=== PATIENT | female | born 1955 | race Caucasian/White ===

== ENCOUNTER → 2016-04-29 | Outpatient (CLI) | payer OTHER ==
[~2016-04-29] MED LIST: /LAMO10TA PO; /PRAV20TA PO; ACET50TA PO; ADDE5TAB5 PO; BUPR PO; COUM1TAB17 PO; DHEA50CA4 PO; EFFE150C PO; EFFEXOR XR PO; HYDR25TAB PO; KLON2TAB PO; LAMI1TAB7 PO; LISI5TAB PO; LOVE0.6I2 SC; NICO14PA TD; NORCOTAB PO; SAPH1SUB9 SL; SAPH5SUB3 SL; VITMTA PO; WELLTAB40 PO; XARE15TA PO; [UNRECOGNIZED DRUG - OTHER] SL
[2016-04-29 16:45] LABS: CREATININE FOR GFR 1.3 MG/DL (0.55-1.02); GLOMERULAR FILTRATION RATE 44.5 (>45); POTASSIUM SERUM 4.2 MEQ/L (3.5-5.1)
== END ==
LOC: M WUC 13:58
PROVIDERS: ATTEND Surgery
DX: Z01.812 Encounter for preprocedural laboratory examination (principal)

== ENCOUNTER → 2016-05-10 | Outpatient (CLI) | payer OTHER ==
--- NOTE | 2016-05-10 08:56 | REPMRS ---
Patient History The patient states she has not had a clinical breast exam in over a year. Family history of breast cancer in sister at age 50 and unknown cancer in mother at age 83. Digital Mammo Screening Bilat: May 10, 2016 - Exam #: [id number] Bilateral CC and MLO view(s) were taken. Technologist: Dianne Jenkins, Technologist Prior study comparison: December 14, 2012, bilateral digital mammo screening bilat performed at [facility]. October 05, 2009, bilateral bilat screen digital mammo performed at [facility]. FINDINGS: There are scattered fibroglandular densities. There has been no change in the appearance of the mammogram from the prior studies. There is a mild amount of scattered fibroglandular density which is fairly symmetric. There is no interval development of dominant mass, architectural distortion, or clustered microcalcification suggestive of malignancy. ASSESSMENT: BI-RADS/ACR category 1 mammogram. Negative. Recommendation Routine screening mammogram in 1 year (for women over age 40). This mammogram was interpreted with the aid of an FDA-approved computer-aided dectection system. Electronically Signed By: Chino Michael MD 05/10/16 0855
== END ==
LOC: M RAD 07:39
PROVIDERS: ATTEND Nurse Practitioner Adult Health
DX: Z12.31 Encounter for screening mammogram for malignant neoplasm of breast (principal); Z80.3 Family history of malignant neoplasm of breast

== ENCOUNTER → 2016-06-15 | Outpatient (REF) | payer OTHER ==
[2016-06-15 13:46] LABS: INR 1.09
== END ==
LOC: M LAB REF 12:49
PROVIDERS: ATTEND Internal Medicine Medical Oncology
DX: C21.0 Malignant neoplasm of anus, unspecified (principal)

== ENCOUNTER → 2016-06-27 | Outpatient (CLI) | payer OTHER ==
--- NOTE | 2016-06-27 17:55 | REP ---
Procedure: PICC line insertion with Franck-Harshil The procedure was performed under the direct supervision of Dr. Rodriguez. The risks and benefits of the procedure were explained to the patient and informed consent was obtained. The right basilic vein was localized using ultrasound guidance. The skin was prepped and draped in a sterile fashion. 2% lidocaine was used as a local anesthetic. Using ultrasound guidance the basilic vein was cannulated and a 0.018 guidewire was inserted and advanced to the SVC using fluoroscopic guidance. The needle was removed and a 4.5 Azerbaijani dilator and peel-away sheath was inserted over the guide wire. A 4.5 Azerbaijani single lumen catheter was cut to length of 40 cm. The dilator was removed and the catheter was inserted over the guide wire with the tip ending in the SVC. The peel-away sheath was removed and the catheter was flushed with heparinized saline as per Hospital protocol. The catheter was affixed to the skin and a sterile dressing was applied. The the patient tolerated the procedure well and there were no immediate complications. 0.7 minutes of fluoro time was utilized for this procedure. Reviewed by BIANCA Chavez 06/27/2016 03:51 PSigned by Luke Rodriguez MD 06/27/2016 05:38 P
== END ==
LOC: M RADPRO 12:28
PROVIDERS: ATTEND Internal Medicine Medical Oncology
DX: C21.0 Malignant neoplasm of anus, unspecified (principal); Z87.891 Personal history of nicotine dependence; Z88.1 Allergy status to other antibiotic agents; Z88.0 Allergy status to penicillin; Z91.030 Bee allergy status; Z79.01 Long term (current) use of anticoagulants; Z79.899 Other long term (current) drug therapy; Z85.828 Personal history of other malignant neoplasm of skin

== ENCOUNTER → 2016-06-28 | Outpatient (CLI) | payer OTHER ==
--- NOTE | 2016-06-28 15:28 | RADONC ---
RADIATION ONCOLOGY CONSULTATION NOTE: DATE: 06/28/2016 CHART NO: [id number] DIAGNOSIS: Anal cancer. STAGE: Stage I, T1N0M0 ECOG PERFORMANCE STATUS: 1 Ms. 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 HISTORY OF PRESENT ILLNESS: The patient was in her usual state of health and has had multiple colonoscopies with a history of polyps. On 03/29/2016 an evaluation was undertaken and an anal polyp was excised. Pathology revealed a moderately differentiated invasive squamous cell carcinoma with basaloid features. The tumor was noted to measure 6 mm x 4 mm. The margins of resection were positive and on 05/12/2016 she underwent anal re-excision. Pathology again revealed some residual invasive squamous cell carcinoma with basaloid features. Carcinoma was present in multiple fragments and extended once again to the resection margins. She is now being referred to us for consideration of definitive external beam radiation therapy with IMRT/IGRT. PAST MEDICAL HISTORY: The patient's past medical history is positive for arthritis, hypertension, DVTs as well as bipolar psychiatric illness. She had a partial hysterectomy in the past. The patient had a lumpectomy on the right side as well. A cholecystectomy was undertaken in the past. She reports that she had some type of vein stripping approximately 1-1/2 years ago. ALLERGIES: The patient is allergic to PENICILLIN. SOCIAL HISTORY: The patient has smoked one pack of cigarettes per day for 25 years. She does not abuse alcohol. FAMILY HISTORY: The patient's family history is positive for a mother with lung cancer and a sister with breast cancer. REVIEW OF SYSTEMS: The patient's review of systems is positive for anxiety and depression, as well as some decreased energy and weakness in arms and legs. She reports that she has occasional difficulty swallowing and some rectal bleeding. She complains of some acid reflux and says she has gained 25 pounds with her depression. She denies nausea, vomiting, fevers, chills, night sweats, diplopia, headaches, chest pain, bowel difficulties, shortness of breath. PHYSICAL EXAMINATION: The patient is a well-developed, well-nourished female in no acute distress. HEENT exam is normocephalic, atraumatic. Extraocular movements are intact. There is no palpable cervical, supraclavicular, infraclavicular, axillary, or inguinal lymphadenopathy present. Lungs are clear to auscultation and percussion. Heart has a regular rate and rhythm. Abdomen is benign with no hepatosplenomegaly, masses, or tenderness. Skeletal examination reveals no tenderness to pressure or percussion of the bony skeleton. Extremities reveal no clubbing, cyanosis, or edema. Rectal examination reveals a normal anal sphincter tone. There is a rough small edge present in the anal canal which does not extend more than 2 cm in length. Neurologic exam is grossly intact, as is the remainder of the physical examination. MEDICAL NECESSITY: IMRT/IGRT is clinically indicated for the highly conformal dose planning required. The target volume is in close proximity to critical structures such as the rectum, bladder, small bowel and femoral heads. The volume of interest must be covered with narrow margins to adequately protect immediately adjacent structures. The plan requires interpretation of complex testing such as CT localization. As noted above, special planning (IMRT) and localizing (IGRT) is required and essential to maximally protect sensitive normal tissue structures which cannot be accomplished using conventional three-dimensional planning. IMAGING STUDIES: Imaging studies have not yet been undertaken. ASSESSMENT: Clearly the patient is a candidate for external beam radiation therapy and I have so informed her. I have discussed with the patient in detail the potential benefits as well as possible acute and chronic sequelae of external beam radiation therapy. We have discussed the logistics of treatment planning, simulation and subsequent fractionated daily radiation. I believe IMRT/IGRT will be best utilized as is recommended in the [employer] guidelines. This will allow us to minimize dose to the normal structures such as the bladder, the femoral heads, small bowel and the large bowel. I have scheduled the patient for CT scanning for further staging workup. In addition, we will coordinate her care with her medical oncologist, Dr. Becerra as well. Thank you for allowing us to participate in the care of this delightful woman. If I could be of any further assistance or provide you with any information, please free to contact me anytime. As always warm regards, cc: Stacia Becerra MD *Noe Farah MD *Kellie Mendoza, ANP
--- NOTE | 2016-06-30 11:25 | RADONC ---
RADIATION ONCOLOGY SIMULATION NOTE DATE: 06/30/2016 CHART NUMBER: [id number] Ms. Dalton was taken to the CT scan for CT simulation of her anal field. CT was accomplished without difficulty or discomfort. Radiation treatment planning is underway and radiation treatments will begin subsequently. An immobilization device was created without difficulty or discomfort. It will be used throughout the course of treatment. I was physically present throughout the course of CT simulation.
== END ==
LOC: M ONCR 09:07
PROVIDERS: ATTEND Radiology Radiation Oncology
DX: C21.0 Malignant neoplasm of anus, unspecified (principal)

== ENCOUNTER 2016-06-30 11:39 | Outpatient (RCR) | payer OTHER ==
--- NOTE | 2016-07-11 12:54 | RADONC ---
RADIATION ONCOLOGY PROGRESS NOTE DATE: 07/11/2016 CHART NUMBER: Ms. Dalton underwent port filming today for her anal cancer treatments. Port films were accomplished without difficulty or discomfort. We initially planned on starting the patient's treatment today, but received a message from medical oncology that they do not have her chemotherapy drugs available and cannot start treatments until next Monday. Since concomitant radiation and chemotherapy is called for, we therefore are unable to start this patient until Monday when the treatment drugs become available. Once again in summary, the patient was scheduled to start radiation today and indeed is ready to start, however chemotherapy drugs are not available and therefore radiation initiation will be done next Monday.
--- NOTE | 2016-07-19 07:37 | RADONC ---
RADIATION ONCOLOGY PROGRESS NOTE DATE: 07/18/2016 CHART NUMBER: [id number] Ms. Dalton underwent her fraction of 180 cGy today to her anus. Her anal treatment was tolerated without difficulty or discomfort. The patient had no complaints related to her first fraction of radiation. The patient's physical exam showed no radiation change present clearly. Ms. Dalton tolerated her first fraction without difficulty and radiation will continue as scheduled.
--- NOTE | 2016-07-26 10:13 | RADONC ---
RADIATION ONCOLOGY PROGRESS NOTE DATE: 07/26/2016 CHART NUMBER: [id number] Ms. Dalton is presently at a dose of 1080 cGy to her anus and is tolerating treatments quite well at this point with no significant difficulties related to her radiation therapy other than some mucositis. She does have some tenderness around the perianal area. The patient's review of systems is positive for some oral cavity mucositis as well as some perianal discomfort but is otherwise noncontributory. She denies nausea, vomiting, fevers, chills, night sweats, diplopia, headaches, anxiety or depression, anorexia, weight loss, visual disturbances, chest pain, urinary or bowel difficulties, bone pain, or neurological problems. PHYSICAL EXAMINATION: The patient's skin is in good condition with no evidence of moist or dry desquamation. The remainder of her physical exam remains unchanged. Ms. Dalton is tolerating treatments quite well, and radiation will continue as scheduled.
== END 2016-07-27 ==
LOC: M ONCR 11:39
PROVIDERS: ATTEND Radiology Radiation Oncology
DX: C21.1 Malignant neoplasm of anal canal (principal)

== ENCOUNTER → 2016-06-30 | Outpatient (CLI) | payer OTHER | LOC: M RAD 10:48 | PROVIDERS: ATTEND Radiology Radiation Oncology | DX: C21.0 Malignant neoplasm of anus, unspecified (principal); Z91.030 Bee allergy status; Z88.1 Allergy status to other antibiotic agents; Z88.0 Allergy status to penicillin; Z88.8 Allergy status to other drugs, medicaments and biological substances ==

== ENCOUNTER → 2016-07-04 | Outpatient (CLI) | payer OTHER ==
[~2016-07-04] MED LIST changes: +GASTROGRAFIN SOLUTION 30ML (Q9963) As Ordered ONE; +ISOVUE-370 76% 100ML VIAL (Q9967) As Ordered ONE
--- NOTE | 2016-07-05 06:28 | REP ---
Clinical: Anal carcinoma for staging. Technique: Axial contrast enhanced images from the thoracic inlet to the upper abdomen using 100 ml Isovue 370 intravenous contrast material with coronal and sagittal re-formations. Comparison: 04/14/2015. Findings: Lung stratton demonstrate chronic age-related scattered interstitial changes along with subtle right upper lobe opacities which may reflect scarring and/or atelectasis. Small focus of density in the deep posterior right base may reflect atelectatic changes and appear slightly more pronounced compared to 03/07/2016. No further consolidation, nodule or mass lesion is appreciated. No axillary, hilar, or mediastinal adenopathy noted. Thoracic aorta, heart and pericardium appear relatively normal. No evidence for cardiomegaly, pericardial effusion, or thoracic aortic aneurysm/dissection. Surrounding musculoskeletal structures are intact. Impression: 1. Chronic-appearing changes as described above primarily involving the right upper lung zone. 2. Presumed atelectasis in the bilateral lung bases warrant correlation with physical examination and follow-up given the patient's history of malignancy. 3. No further acute mediastinal or pleuroparenchymal process otherwise noted. Specifically, no adenopathy, nodule or mass lesion identified. Signed by Benjamin Marcum MD 07/05/2016 06:20 A
--- NOTE | 2016-07-05 06:34 | REP ---
Clinical: Anal carcinoma. Technique: Axial contrast enhanced images from the lung bases to the pubic symphysis using oral and 100 ml Isovue 370 intravenous contrast material along with precontrast and delayed images of the abdomen as well as coronal and sagittal re-formations. Comparison: 03/07/2016. Findings: Subtle ill-defined density at the right lung base likely represents atelectasis but requires correlation and follow up. Visualized portions of the heart and pericardium are normal. Liver demonstrates 1 cm hyperdense focus in the posterior periphery of the right lobe which is essentially unchanged compared to 2008 and likely represent small hemangioma. Spleen, pancreas, bilateral adrenal glands and kidneys are normal. The patient is status post cholecystectomy. The enteric system is without obstruction or acute inflammatory process. Pelvis demonstrates normal bladder and evidence for prior hysterectomy. No obvious perirectal mass lesion is appreciated. No ascites. No intraperitoneal or retroperitoneal adenopathy. Vasculature is normal. Musculoskeletal structures demonstrate age-related changes without focal osseous abnormality; incidental note is made of a presumed hemangioma in the T8 vertebral body. Impression: 1. Stable 1 cm hemangioma in the posterior segment right lobe of the liver. 2. Small presumed benign hemangioma in the T8 vertebral body. 3. Small focus of presumed atelectasis in the right lung base warrants reevaluation with chest CT in 3 months. 4. No further significant acute abdominal or pelvic pathology appreciated. Signed by Benjamin Marcum MD 07/05/2016 06:26 A
== END ==
LOC: M RAD 14:58
PROVIDERS: ATTEND Radiology Radiation Oncology
DX: C21.0 Malignant neoplasm of anus, unspecified (principal); D18.09 Hemangioma of other sites; R91.8 Other nonspecific abnormal finding of lung field

== ENCOUNTER 2016-07-28 11:38 | Outpatient (RCR) | payer OTHER ==
[~2016-07-28 11:38] MED LIST changes: +ADDE1TAB14 PO; -ADDE5TAB5 PO; -GASTROGRAFIN SOLUTION 30ML (Q9963) As Ordered ONE; -ISOVUE-370 76% 100ML VIAL (Q9967) As Ordered ONE
--- NOTE | 2016-08-03 07:29 | RADONC ---
RADIATION ONCOLOGY PROGRESS NOTE DATE: 08/02/2016 CHART NUMBER: [id number] Ms. Dalton is presently at a dose of 1980 cGy to her anus and is tolerating treatments quite well at this point with no significant difficulties related to her radiation therapy other than some occasional loose bowel movements. The patient's review of systems is positive for some loose bowel movements but is otherwise noncontributory. Denies nausea, vomiting, fevers, chills, night sweats, diplopia, headaches, anxiety or depression, anorexia, weight loss, visual disturbances, chest pain, urinary or bowel difficulties, bone pain, or neurological problems. PHYSICAL EXAMINATION: The patient's skin is in good condition with no evidence of moist or dry desquamation. The remainder of physical exam remains unchanged. Ms. Dalton is tolerating treatments quite well and radiation will continue as scheduled.
--- NOTE | 2016-08-08 11:35 | RADONC ---
RADIATION ONCOLOGY PROGRESS NOTE: DATE: 08/08/2016 CHART NUMBER: [id number]. PROGRESS NOTE: Ms. Dalton is presently at a dose of 2700 cGy to her anus and is tolerating her radiation treatments quite well. She is complaining of severe fatigue. She also has muscle pain throughout her body. She has no other complaints at this time related to her treatment or disease other than some tenderness in the perineal area. REVIEW OF SYSTEMS: The patient's review of systems is positive for perianal discomfort as well as fatigue and general muscle pain, but is otherwise noncontributory. The patient's review of systems is noncontributory. Denies nausea, vomiting, fevers, chills, night sweats, diplopia, headaches, anxiety or depression, anorexia, weight loss, visual disturbances, chest pain, urinary or bowel difficulties, bone pain, or neurological problems. PHYSICAL EXAMINATION: The patient's skin shows some erythema present but overall is in good condition with no evidence of moist or dry desquamation. The remainder of her physical exam remains unchanged. Ms. Dalton is tolerating treatments quite well and radiation will continue as scheduled. She is scheduled to see her medical oncologist to discuss her present complaints.
[2016-08-15] MEDS ORDERED: SILV-4 TOP (11:09)
--- NOTE | 2016-08-15 14:15 | RADONC ---
RADIATION ONCOLOGY PROGRESS NOTE DATE: 08/15/2016 CHART NUMBER: [id number] Ms. Dalton is presently at a dose of 3600 cGy to her anus and is tolerating treatments quite well at this point with no significant difficulties related to her radiation therapy other than some perianal discomfort and loose bowel movements. REVIEW OF SYSTEMS: The patient's review of systems is positive for loose bowel movements and perianal discomfort, but is otherwise noncontributory. She denies nausea, vomiting, fevers, chills, night sweats, diplopia, headaches, anxiety or depression, anorexia, weight loss, visual disturbances, chest pain, urinary or bowel difficulties, bone pain, or neurological problems. PHYSICAL EXAMINATION: The patient's skin is remarkable for brisk erythema and tanning. There is also some desquamation in the perineal area. The remainder of her physical exam remains unchanged. Ms. Dalton has been given a prescription for Silvadene cream to be of applied topically over the areas being radiated. In the meantime, we will follow her closely and radiation will continue as scheduled.
[2016-08-22] MEDS ORDERED: PERC5TAB12 PO (09:27)
--- NOTE | 2016-08-22 12:16 | RADONC ---
RADIATION ONCOLOGY PROGRESS NOTE DATE: 08/22/2016 CHART NUMBER: [id number] Ms. Dalton is presently at a dose of 4320 cGy to her anus. The patient presents today reporting that she is having pain and discomfort. She reports that she is having bowel movements every hour. She reports some bleeding from the perianal area. The patient's review of systems again is positive for perianal pain and discomfort as well as some bleeding. She also has pain in the groins and says her raw skin hurts. PHYSICAL EXAMINATION: There is moist desquamation in the perianal region as well as the skin folds in the inguinal area. There is also some erythema and tanning present. The remainder of her physical examination remains unchanged. I have sent in a prescription for pain medication for this patient. In addition she is using Silvadene and has been given skin care instructions including sitz baths as well as how to keep the area clean. The patient reports that she might have a yeast infection and she has been given instructions on how to care for that as well. We are approaching completion of treatment at this point. Indeed she only has four fractions left. I have given this patient an option. She has taken a break today from treatment. I have asked her to consider returning tomorrow and completing her four fractions today if she feels better following initiation of some pain medication as well as some Imodium and skin care. We are coming up to a 4-day weekend and because of that the other alternative would be two fractions this week make that on and Monday followed by a two fractions next week on Monday and . This would give her a 5 day break at the present time and another 4 day break over the weekend. I made clear to her that she may lose some efficacy of the treatment if she chooses that option. Clearly I cannot force the patient to come in for treatment today. Once again we will continue to follow this woman and she only has a small amount of radiation left. She may be completing therapy this week, but if not we will complete her next week. She is aware of the ramifications of any decision.
== END 2016-08-26 ==
LOC: M ONCR 11:38
PROVIDERS: ATTEND Radiology Radiation Oncology
DX: C21.1 Malignant neoplasm of anal canal (principal)

== ENCOUNTER 2016-08-31 10:07 | Outpatient (RCR) | payer OTHER ==
[~2016-08-31 10:07] MED LIST changes: +PERC5TAB12 PO; +SILV-4 TOP
--- NOTE | 2016-09-02 09:39 | RADONC ---
RADIATION ONCOLOGY PROGRESS NOTE DATE: 08/31/2016 CHART NUMBER: [id number]. Ms. Dalton is presently at a dose of 4860 centigrade to her anus and is tolerating treatments fairly well at this point with no significant difficulties related to her radiation therapy other than skin tenderness. The patient's review of systems is positive for skin tenderness and some loose bowel movements, but is otherwise noncontributory. Denies nausea, vomiting, fevers, chills, night sweats, diplopia, headaches, anxiety or depression, anorexia, weight loss, visual disturbances, chest pain, urinary or bowel difficulties, bone pain, or neurological problems. PHYSICAL EXAMINATION: The patient's skin shows erythema and some desquamation present, but overall is doing fairly well. The remainder of her physical exam remains unchanged. Ms. Dalton is tolerating her treatments and radiation is scheduled for completion tomorrow.
--- NOTE | 2016-09-02 09:42 | RADONC ---
RADIATION ONCOLOGY TREATMENT SUMMARY: DATE: 09/01/2016 CHART NUMBER: [id number] DIAGNOSIS: Anal cancer. STAGE: I, T1N0M0. ECOG PERFORMANCE STATUS: 1 Ms. 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 We treated the patient to her anus for a total dose of 5040 cGy delivered in 28 fractions of 180 cGy each over 45 elapsed days from 07/18/2016 through 09/01/2016. The patient's anus was treated on a linear accelerator utilizing a 6 MV photon beam via IMRT/IGRT. The patient's lymph nodes were treated to a dose of 4200 cGy delivered in 28 fractions of 150 cGy each also utilizing a 6 MV photon beam. Ms. Dalton tolerated her treatments quite well with no significant difficulties related to her radiation therapy. She was able to complete without interruption. I have scheduled the patient to see me again in 1 month for followup visit. She will also continue to be followed closely by her other physicians as well. cc: Stacia Becerra MD, FACP MD Kellie Soto, ALYCE
== END 2016-09-26 ==
LOC: M ONCR 10:07
PROVIDERS: ATTEND Radiology Radiation Oncology
DX: C21.1 Malignant neoplasm of anal canal (principal)

== ENCOUNTER → 2016-10-07 | Outpatient (CLI) | payer OTHER ==
--- NOTE | 2016-10-07 10:10 | RADONC ---
RADIATION ONCOLOGY FOLLOWUP NOTE: DATE: 10/07/2016 CHART NUMBER: [id number]. DIAGNOSIS: Anal cancer. STAGE: I, T1N0M0. ECOG PERFORMANCE STATUS: Zero. FOLLOWUP NOTE: Ms. Dalton is a very pleasant, 61-year-old white female with the diagnosis of a stage I, T1N0M0 moderately differentiated invasive squamous cell carcinoma with basaloid features of her anal canal who is presenting to us today for routine followup visit 1 month post completion of external beam radiation therapy. The patient presents today reporting that she is doing quite well. She has some discomfort with her bowel movements. She also has some itching in the perineal area. She has no other complaints related to her radiation therapy or disease. REVIEW OF SYSTEMS: The patient's review of systems is positive for some slight discomfort with her bowel movements and some perianal aging but is otherwise noncontributory. Denies nausea, vomiting, fevers, chills, night sweats, diplopia, headaches, anxiety or depression, anorexia, weight loss, visual disturbances, chest pain, urinary or bowel difficulties, bone pain, or neurological problems. PHYSICAL EXAMINATION: The patient is a well-developed, well-nourished, 61-year-old white female, in no acute distress. HEENT exam is normocephalic, atraumatic. Extraocular movements are intact. There is no palpable cervical, supraclavicular, infraclavicular, axillary, or inguinal lymphadenopathy present. Lungs are clear to auscultation and percussion. Heart has a regular rate and rhythm. Abdomen is benign with no hepatosplenomegaly, masses, or tenderness. Rectal examination reveals the skin in the perianal area to be within good condition with no evidence of radiation change present. There is no moist or dry desquamation. Examination of the patient's anal canal shows no evidence of nodularity ulceration or residual disease. Skeletal examination reveals no tenderness to pressure or percussion of the bony skeleton. Extremities reveal no clubbing, cyanosis, or edema. Neurologic exam is grossly intact, as is the remainder of the physical examination. ASSESSMENT: The patient is clinically doing quite well at this time and will be seen by us again in 3 months for further followup. She will also continue to be followed by her other physicians as well. cc: Stacia Becerra MD, FACP MD Kellie Soto, ALYCE
== END ==
LOC: M ONCR 09:29
PROVIDERS: ATTEND Radiology Radiation Oncology
DX: C21.1 Malignant neoplasm of anal canal (principal)

== ENCOUNTER → 2017-03-23 | Outpatient (CLI) | payer OTHER ==
[2017-03-23 20:51] LABS: BASO % 0.4 % (0.0-1.0); EOS # 0.1 10^3/uL (0.0-0.50); EOS % 1.5 % (0.0-3.0); HEMATOCRIT 38.3 % (36.0-47.0); HEMOGLOBIN 12.4 g/dl (12.0-16.0); IMMATURE GRANULOCYTE % 0.6 % (0-0); LYMPH # 1.3 10^3/uL (1.5-4.5); LYMPH % 27.5 % (24.0-44.0); MEAN CORPUSCULAR HEMOGLOBIN 28.7 pg (27.0-33.0); MEAN CORPUSCULAR HGB CONC 32.4 g/dl (32.0-36.5); MEAN CORPUSCULAR VOLUME 88.7 fl (80.0-96.0); MONO # 0.5 10^3/uL (0.0-0.8); MONO % 11.5 % (0.0-5.0); NEUTROPHILS # 2.7 10^3/uL (1.8-7.7); NEUTROPHILS % 58.5 % (36.0-66.0); PLATELET COUNT, AUTOMATED 290 10^3/uL (150-450); RED BLOOD COUNT 4.32 10^6/uL (4.00-5.40); RED CELL DISTRIBUTION WIDTH 14.8 % (11.5-14.5); WHITE BLOOD COUNT 4.7 10^3/uL (4.0-10.0)
[2017-03-23 21:16] LABS: IRON (FE) 81 UG/DL (50-170)
[2017-03-23 21:16] LABS: FREE T3 2.5 PG/ML (2.2-4.0); THYROXINE (T4) 8.5 UG/DL (4.5-12.0)
== END ==
LOC: M WUC 16:25
DX: R53.83 Other fatigue (principal)
CPT/HCPCS: 83540

== ENCOUNTER 2017-09-08 15:35 | Emergency (ER) | payer OTHER ==
[2017-09-08] MEDS: NS 500 ML IV (17:00)
[2017-09-08 17:02] LABS: BASO % 0.6 % (0.0-1.0); EOS # 0.1 10^3/uL (0.0-0.50); HEMATOCRIT 37.9 % (36.0-47.0); HEMOGLOBIN 12.6 g/dl (12.0-15.5); LYMPH # 1.4 10^3/uL (1.5-4.5); LYMPH % 22.1 % (24.0-44.0); MEAN CORPUSCULAR HEMOGLOBIN 29.2 pg (27.0-33.0); MEAN CORPUSCULAR HGB CONC 33.2 g/dl (32.0-36.5); MEAN CORPUSCULAR VOLUME 87.7 fl (80.0-96.0); MONO # 0.7 10^3/uL (0.0-0.8); MONO % 10.4 % (0.0-5.0); NEUTROPHILS # 4.1 10^3/uL (1.8-7.7); NEUTROPHILS % 64.9 % (36.0-66.0); PLATELET COUNT, AUTOMATED 275 10^3/uL (150-450); RED BLOOD COUNT 4.32 10^6/uL (4.00-5.40); RED CELL DISTRIBUTION WIDTH 14.6 % (11.5-14.5); WHITE BLOOD COUNT 6.3 10^3/uL (4.0-10.0)
[2017-09-08 17:26] LABS: INR 1.66; PROTHROMBIN TIME 19.9 SECONDS (12.1-14.4)
[2017-09-08 17:27] LABS: PARTIAL THROMBOPLASTIN TIME 34.3 SECONDS (25.4-37.6)
[2017-09-08 17:28] LABS: ALBUMIN 3.7 GM/DL (3.2-5.2); ALBUMIN/GLOBULIN RATIO 0.88 (1.00-1.93); ALKALINE PHOSPHATASE 135 U/L (45-117); ALT/SGPT 20 U/L (12-78); ANION GAP 10 MEQ/L (8-16); AST/SGOT 13 U/L (7-37); BILIRUBIN,DIRECT < 0.1 MG/DL (0.0-0.2); BILIRUBIN,TOTAL 0.3 MG/DL (0.2-1.0); BLOOD UREA NITROGEN 14 MG/DL (7-18); CALCIUM LEVEL 9.2 MG/DL (8.8-10.2); CARBON DIOXIDE LEVEL 25 MEQ/L (21-32); CHLORIDE LEVEL 105 MEQ/L (98-107); CPK CREATINE PHOSPHOKINASE 48 U/L (26-192); CREATININE FOR GFR 1.35 MG/DL (0.55-1.30); GLOMERULAR FILTRATION RATE 42.4 (>45); GLUCOSE, FASTING 80 MG/DL (70-100); LIPASE 156 U/L (73-393); POTASSIUM SERUM 3.7 MEQ/L (3.5-5.1); SODIUM LEVEL 140 MEQ/L (136-145); TOTAL PROTEIN 7.9 GM/DL (6.4-8.2); TROPONIN I < 0.02 NG/ML (< 0.10)
[2017-09-08 17:34] LABS: CK-MB VALUE MASS < 1.0 NG/ML (<3.6); MB/CK RELATIVE INDEX 2.08 (< OR =4); NT-PRO BNP 40 PG/ML (<125)
[2017-09-08] MEDS ORDERED: ISOVUE-370 76% 100ML VIAL (Q9967) As Ordered (17:35)
== END 2017-09-08 18:31 | disposition home or self-care (01) ==
LOC: M ED 15:35
DX: R07.89 Other chest pain (principal); R06.02 Shortness of breath; I10 Essential (primary) hypertension; E78.5 Hyperlipidemia, unspecified; F31.9 Bipolar disorder, unspecified; Z86.711 Personal history of pulmonary embolism; Z87.442 Personal history of urinary calculi; Z79.01 Long term (current) use of anticoagulants; Z88.0 Allergy status to penicillin; Z88.1 Allergy status to other antibiotic agents; Z88.6 Allergy status to analgesic agent; Z91.030 Bee allergy status
CPT/HCPCS: Q9967

== ENCOUNTER 2018-01-21 10:32 | Emergency (ER) | payer MEDICARE, MEDICAID ==
[~2018-01-21] VITALS: Ht 177.8 cm; Wt 129.6 kg
[~2018-01-21 10:32] MED LIST changes: +AMPHET/DEXTR; -EFFE150C PO; +EFFE150C2 PO; +OMEP20CA3; +RISP2TAB3; +XARE20TA
[2018-01-21] MEDS ORDERED: OXYCOD/APAP PO (10:50)
[2018-01-21] MEDS ORDERED: QUET1TAB8 PO (10:51)
[2018-01-21] MEDS ORDERED: SENN8.6T98 PO (10:51)
[2018-01-21 11:41] LABS: BASO % 0.4 % (0.0-1.0); EOS # 0.1 10^3/uL (0.0-0.50); EOS % 1.4 % (0.0-3.0); HEMATOCRIT 29.5 % (36.0-47.0); HEMOGLOBIN 9.9 g/dl (12.0-15.5); LYMPH # 1.3 10^3/uL (1.5-4.5); LYMPH % 18.1 % (24.0-44.0); MEAN CORPUSCULAR HEMOGLOBIN 29.2 pg (27.0-33.0); MEAN CORPUSCULAR HGB CONC 33.6 g/dl (32.0-36.5); MONO # 0.7 10^3/uL (0.0-0.8); MONO % 10.2 % (0.0-5.0); NEUTROPHILS # 4.9 10^3/uL (1.8-7.7); NEUTROPHILS % 69.3 % (36.0-66.0); PLATELET COUNT, AUTOMATED 290 10^3/uL (150-450); RED BLOOD COUNT 3.39 10^6/uL (4.00-5.40); WHITE BLOOD COUNT 7.1 10^3/uL (4.0-10.0)
[2018-01-21] MEDS ORDERED: NS 1,000 ML IV ONE (11:45)
--- NOTE | 2018-01-21 12:02 | REP ---
Clinical: Shortness of breath . Comparison: 03/26/2015 . Findings: The mediastinum and cardiac silhouette are stable and within normal limits for portable technique. The lung stratton are clear without acute consolidation, effusion, or pneumothorax. Skeletal structures are intact. Impression: No acute cardiopulmonary process appreciated. Electronically Signed by Benjamin Marcum MD 01/21/2018 11:54 A
[2018-01-21 12:07] LABS: CALCIUM LEVEL 8.4 MG/DL (8.8-10.2); CREATININE FOR GFR 1.24 MG/DL (0.55-1.30); GLOMERULAR FILTRATION RATE 46.8 (>45); POTASSIUM SERUM 3.4 MEQ/L (3.5-5.1)
[2018-01-21] MEDS ORDERED: risperiDONE 3 MG TAB PO ONE (12:15)
--- NOTE | 2018-01-21 12:19 | REP ---
Clinical: Left lower extremity pain with recent knee replacement and acute shortness of breath. Technique: Rodriguez scale and color Doppler evaluation using linear high frequency transducer. Comparison: 03/26/2015 Findings: Ultrasound examination of the left lower extremity deep venous structures from the common femoral vein to the popliteal vein demonstrates normal compressibility flow and wave patterns in response to respiration and augmentation. There is no evidence for deep venous thrombosis. Impression: No evidence for deep venous thrombosis. Electronically Signed by Benjamin Marcum MD 01/21/2018 12:10 P
[2018-01-21] MEDS ORDERED: ISOVUE-370 76% 100ML VIAL (Q9967) As Ordered ONE (12:25)
--- NOTE | 2018-01-21 12:53 | REP ---
Clinical: Postoperative chest pain and shortness of breath. Technique: Axial contrast enhanced images from the thoracic inlet to the upper abdomen using 100 ml Isovue 370 intravenous contrast material with coronal and sagittal re-formations. Findings: Satisfactory enhancement of the pulmonary vasculature is achieved and no filling defects are identified to suggest pulmonary embolus. Thoracic aorta is normal caliber without aneurysm or dissection. Heart and pericardium are normal. Bilateral lung stratton are well aerated and clear without acute pulmonary parenchymal consolidation or atelectasis. Minimal posterior right basilar dependent changes. No nodule or mass lesion. No pleural effusion/reaction. No pneumothorax. No adenopathy. Impression: No evidence for pulmonary embolus. No acute pleuroparenchymal or mediastinal process. Minimal posterior basilar dependent changes. Electronically Signed by Benjamin Marcum MD 01/21/2018 12:45 P
[2018-01-21] MEDS ORDERED: ONDANSETRON 4MG/2ML VIAL (J2405) IV ONE (13:15)
[2018-01-21] MEDS ORDERED: MORPHINE 2 MG/ML 1ML SYRINGE (J2270) IV PRN (13:15)
[2018-01-21 13:27] LABS: C REACTIVE PROTEIN QUANTITATIV 16.3 MG/DL (0.00-0.30)
[2018-01-21 14:28] VITALS: BP 120/74
--- NOTE | 2018-01-21 20:54 | ECGEPIP ---
Stationary ECG Study [facility] - ED Test Date: 2018-01-21 Pat Name: LOUIE SANDOVAL Department: Room: - Gender: F Director Orange: TC : 1955 Requested By: Juanito Zepeda Order Number: [id number] Reading MD: Dora Amaral Measurements Intervals [place] Rate: 90 P: 83 [place]: 139 QRS: 66 QRSD: 94 T: 20 QT: 366 QTc: 449 Interpretive Statements SINUS RHYTHM MODERATE ST DEPRESSION SIMILAR 09/08/17 Electronically Signed On 01-21-2018 20:54:38 EST by Dora Amaral
== END 2018-01-21 14:35 | disposition short-term general hospital (02) ==
LOC: M ED 10:32 → EDBD 10:32 → M ED 14:35
DX: T81.42XA Infection following a procedure, deep incisional surgical site, initial encounter (principal)
CPT/HCPCS: 71045; 71275; 80048; 83605; 85025; 86140; 87040; 93005; 93041; 93971; 94760; 96374; 96375; 96376; 99285; J2270; J2405; Q9967

== ENCOUNTER 2018-02-22 07:28 | Outpatient (RCR) | payer MEDICARE, MEDICAID ==
[~2018-02-22 07:28] MED LIST changes: +OXYCOD/APAP PO; +QUET1TAB8 PO; +SENN8.6T98 PO
== END 2018-02-26 ==
LOC: M PT 07:28
PROVIDERS: ATTEND Physician Assistant Surgical
DX: Z47.89 Encounter for other orthopedic aftercare (principal); M17.12 Unilateral primary osteoarthritis, left knee
CPT/HCPCS: 97110; 97161; G8978; G8979

== ENCOUNTER 2018-03-28 07:30 | Outpatient (RCR) | payer MEDICARE, MEDICAID | END 2018-03-29 | LOC: M PT 07:30 | PROVIDERS: ATTEND Physician Assistant Surgical | DX: Z47.1 Aftercare following joint replacement surgery (principal); Z96.652 Presence of left artificial knee joint ==

== ENCOUNTER 2018-04-20 10:09 | Emergency (ER) | payer MEDICAID, MEDICARE ==
[~2018-04-20] VITALS: Ht 177.8 cm; Wt 90.9 kg
[2018-04-20] MEDS ORDERED: NS 1,000 ML IV ONE (11:45)
[2018-04-20 12:10] LABS: BASO % 0.5 % (0.0-1.0); EOS # 0.1 10^3/uL (0.0-0.50); EOS % 1.1 % (0.0-3.0); HEMATOCRIT 43.3 % (36.0-47.0); HEMOGLOBIN 13.6 g/dl (12.0-15.5); LYMPH # 1.6 10^3/uL (1.5-4.5); LYMPH % 25.3 % (24.0-44.0); MEAN CORPUSCULAR HEMOGLOBIN 28.2 pg (27.0-33.0); MEAN CORPUSCULAR HGB CONC 31.4 g/dl (32.0-36.5); MEAN CORPUSCULAR VOLUME 89.8 fl (80.0-96.0); MONO # 0.8 10^3/uL (0.0-0.8); MONO % 11.8 % (0.0-5.0); NEUTROPHILS # 3.9 10^3/uL (1.8-7.7); NEUTROPHILS % 60.5 % (36.0-66.0); PLATELET COUNT, AUTOMATED 293 10^3/uL (150-450); RED BLOOD COUNT 4.82 10^6/uL (4.00-5.40); WHITE BLOOD COUNT 6.4 10^3/uL (4.0-10.0)
[2018-04-20] MEDS: GASTROGRAFIN SOLUTION 30ML PO SCH ×2 (12:12→12:45)
[2018-04-20 12:32] LABS: ALBUMIN 3.9 GM/DL (3.2-5.2); ALT/SGPT 21 U/L (12-78); AMYLASE 37 U/L (25-115); BILIRUBIN,DIRECT < 0.1 MG/DL (0.0-0.2); BILIRUBIN,TOTAL 0.3 MG/DL (0.2-1.0); BLOOD UREA NITROGEN 7 MG/DL (7-18); CALCIUM LEVEL 9.3 MG/DL (8.8-10.2); CARBON DIOXIDE LEVEL 26 MEQ/L (21-32); CHLORIDE LEVEL 105 MEQ/L (98-107); CREATININE FOR GFR 1.38 MG/DL (0.55-1.30); GLOMERULAR FILTRATION RATE 41.2 (>45); GLUCOSE, FASTING 95 MG/DL (70-100); LIPASE 128 U/L (73-393); POTASSIUM SERUM 4.3 MEQ/L (3.5-5.1); SODIUM LEVEL 140 MEQ/L (136-145); TOTAL PROTEIN 7.8 GM/DL (6.4-8.2)
[2018-04-20] MEDS ORDERED: ISOVUE-370 76% 100ML VIAL (Q9967) As Ordered ONE (13:28)
--- NOTE | 2018-04-20 14:10 | REP ---
CT of the abdomen and pelvis with IV and oral contrast: Comparison is 07/04/2016. The visualized lung stratton are unremarkable except for minor atelectasis. There is an enhancing lesion inferiorly in the right lobe of the liver as previously. There appears to be a slightly more enhancement at the periphery of this lesion today than previously. Therefore, I would recommend MRI follow-up. The remainder of the hepatic parenchyma is unremarkable. There are surgical clips in the gallbladder fossa. The pancreas and spleen are normal size unremarkable. The adrenals are unremarkable. The kidneys are unremarkable. Abdominal aorta is unremarkable. There is no periaortic adenopathy or mass. There is no bowel distension or obstruction. There is a moderate volume of fecal residue throughout the colon. Pelvis: There is a hysterectomy. Vaginal cuff and adnexa are unremarkable. There is no diverticulosis or diverticulitis. The bladder is unremarkable. There is no adenopathy or ascites. Impression: There is no bowel distension or obstruction. There is a moderate volume of fecal residue throughout the colon. There is no diverticulosis or diverticulitis. There is enhancing lesion in the right lobe of the liver inferiorly with slightly more enhancement today than previously, therefore, I would recommend hepatic MRI follow-up. Electronically Signed by Luke Davis MD 04/20/2018 02:01 P
[2018-04-20] MEDS ORDERED: GOLYTELY SOLN 4000 ML BTL PO ONE (14:15)
[2018-04-20 14:40] VITALS: BP 121/71
--- NOTE | 2018-04-23 20:30 | ED PDOC ---
Post-Departure Follow-Up lui yoo faxed formal report of ct abd/pf or fu joseg Nathaniel Crouch MD Apr 23, 2018 20:30
== END 2018-04-20 14:45 | disposition home or self-care (01) ==
LOC: M ED 10:09
DX: K59.00 Constipation, unspecified (principal); K76.9 Liver disease, unspecified; R11.0 Nausea; I10 Essential (primary) hypertension; E78.5 Hyperlipidemia, unspecified; F41.9 Anxiety disorder, unspecified; F32.9 Major depressive disorder, single episode, unspecified; Z86.711 Personal history of pulmonary embolism; Z87.442 Personal history of urinary calculi; Z88.1 Allergy status to other antibiotic agents; Z88.4 Allergy status to anesthetic agent; Z88.0 Allergy status to penicillin; Z91.030 Bee allergy status; Z79.899 Other long term (current) drug therapy; Z79.01 Long term (current) use of anticoagulants
CPT/HCPCS: 74177; 80048; 80076; 81001; 82150; 83690; 85025; 87086; 96360; 96361; 99284; Q9963; Q9967

== ENCOUNTER 2018-09-04 11:03 | Emergency (ER) | payer MEDICARE ==
[~2018-09-04] VITALS: Ht 177.8 cm; Wt 95.5 kg
[~2018-09-04 11:03] MED LIST changes: -/LAMO10TA PO; -/PRAV20TA PO; -ACET50TA PO; -BUPR PO; +HYDR-2541 PO; +HYDR-3715 PO; -HYDR25TAB PO; +MAPA500T17 PO; +NICO14DI20 TD; -NICO14PA TD; -NORCOTAB PO; -OMEP20CA3; +OMEP20CA4; +PRAV1TAB39 PO; -XARE20TA; +XARE20TA PO; +[UNRECOGNIZED DRUG - CODE] PO
[2018-09-04] MEDS ORDERED: TOPR25TA PO (11:38)
--- NOTE | 2018-09-04 12:12 | REP ---
Chest x-ray: Single AP portable view. History: Syncope, near-syncope. Comparison study: January 21, 2018. Findings: EKG monitoring electrodes overlie the chest. The lungs are well inflated and free of infiltrate. There is a tiny linear opacity at the left base consistent with fibrosis versus plate-like atelectasis. Lung stratton are otherwise clear. Pleural angles are sharp. Heart size is normal. Pulmonary vasculature is not increased. No significant bony abnormality is seen. Impression: Linear plate-like atelectasis versus fibrosis left base. Otherwise no acute disease. Electronically Signed by Wojciech Michael MD 09/04/2018 04:55 P
--- NOTE | 2018-09-04 12:27 | REP ---
CT brain without contrast: History: Trauma. [place] CT study December 10, 2013. 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 The bony calvarium is intact on bone window settings. No skull fracture is appreciated. No intraorbital abnormality is seen. Visualized paranasal sinuses are clear. On soft tissue window settings, there is no evidence of intracranial hemorrhage. No mass, extra-axial fluid collection, infarct or midline shift is seen. Rodriguez white differentiation pattern is normal above below the tentorium. Impression: Negative noncontrast CT brain. Electronically Signed by Wojciech Michael MD 09/04/2018 12:19 P
--- NOTE | 2018-09-04 12:34 | REP ---
CT study of the cervical spine without contrast: History: Trauma. Comparison CT study of the cervical spine is from January 24, 2011. Technique: Helical scanning is acquired and overlapping 2 mm high resolution axial images were generated and reviewed at bone and soft tissue window settings. Coronal and sagittal multiplanar re-formations images are generated. CT findings: There is no evidence of cervical spine element fracture. No skull base fracture is seen. Cervical vertebral body heights are preserved. Alignment is normal. Facet joints are normally aligned bilaterally at each cervical level on multiplanar re-formations images. There is no evidence of intraspinal or paraspinal hematoma. No extra vertebral abnormality is seen. There is however a degenerative spondylosis changes C5-6 and C6-7 as previously noted. These discs are narrowed in height. At C5-6, there is a right posterior and central calcified disc protrusion which intrudes extends somewhat caudally unchanged. At C6-7, there is posterior osteophytic ridging and diffuse disc bulging. These findings are essentially unchanged from the March 26, 2010 prior study. Impression: Degenerative spondylosis changes at C5-6 and C6-7 as observed on the 2010 prior study. Diffuse disc bulging and osteophytic ridging at C6-7 and the right posterior and central calcified disc protrusion at C5-[address] study of the cervical spine without contrast. No fracture seen. Electronically Signed by Wojciech Michael MD 09/04/2018 12:26 P
[2018-09-04 12:36] LABS: BASO % 0.3 % (0.0-1.0); EOS % 0.1 % (0.0-3.0); HEMOGLOBIN 12.6 g/dl (12.0-15.5); LYMPH # 0.7 10^3/uL (1.5-4.5); LYMPH % 4.8 % (24.0-44.0); MEAN CORPUSCULAR HEMOGLOBIN 28.8 pg (27.0-33.0); MEAN CORPUSCULAR HGB CONC 32.3 g/dl (32.0-36.5); MEAN CORPUSCULAR VOLUME 89.2 fl (80.0-96.0); MONO # 0.6 10^3/uL (0.0-0.8); MONO % 4.6 % (0.0-5.0); NEUTROPHILS # 12.2 10^3/uL (1.8-7.7); NEUTROPHILS % 89.6 % (36.0-66.0); PLATELET COUNT, AUTOMATED 248 10^3/uL (150-450); RED BLOOD COUNT 4.37 10^6/uL (4.00-5.40); WHITE BLOOD COUNT 13.6 10^3/uL (4.0-10.0)
[2018-09-04] MEDS ORDERED: NS 1,000 ML IV SCH (12:38)
[2018-09-04] MEDS ORDERED: MECLIZINE 25 MG TABLET PO ONE (12:45)
[2018-09-04] MEDS ORDERED: METOCLOPRAMIDE INJ 10MG/2ML VIAL (J2765) IV ONE (12:45)
[2018-09-04 12:46] LABS: INR 1.47; PROTHROMBIN TIME 17.6 SECONDS (11.8-14.0)
[2018-09-04 12:47] LABS: PARTIAL THROMBOPLASTIN TIME 33.2 SECONDS (25.0-38.4)
[2018-09-04 13:11] LABS: BLOOD UREA NITROGEN 14 MG/DL (7-18); CALCIUM LEVEL 8.8 MG/DL (8.8-10.2); CARBON DIOXIDE LEVEL 25 MEQ/L (21-32); CHLORIDE LEVEL 102 MEQ/L (98-107); CK-MB VALUE MASS < 1.0 NG/ML (<3.6); CPK CREATINE PHOSPHOKINASE 42 U/L (26-192); CREATININE FOR GFR 1.39 MG/DL (0.55-1.30); FREE T4 0.81 NG/DL (0.76-1.46); GLOMERULAR FILTRATION RATE 40.9 (>45); GLUCOSE, FASTING 82 MG/DL (70-100); MAGNESIUM LEVEL 1.8 MG/DL (1.8-2.4); MB/CK RELATIVE INDEX 2.38 (< OR =4); POTASSIUM SERUM 4.1 MEQ/L (3.5-5.1); SODIUM LEVEL 135 MEQ/L (136-145); TROPONIN I < 0.02 NG/ML (< 0.10)
--- NOTE | 2018-09-04 13:57 | REP ---
PELVIS, SINGLE VIEW: Single AP view of the pelvis is performed. No acute fracture or dislocation is seen. There are mild degenerative changes of the lower lumbar spine. IMPRESSION: No acute fracture or dislocation. Electronically Signed by Luke Rodriguez MD 09/06/2018 10:14 A
[2018-09-04] MEDS ORDERED: NS 500 ML IV ONE (15:45)
[2018-09-04 16:15] VITALS: BP 127/75
[2018-09-04 17:01] VITALS: O2SAT 95
[2018-09-04] MEDS ORDERED: SILV1CRE60 TOP (17:04)
[2018-09-04] MEDS ORDERED: MECL-68 PO (17:06)
--- NOTE | 2018-09-05 03:34 | ECGEPIP ---
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
== END 2018-09-04 17:26 | disposition home or self-care (01) ==
LOC: M ED 11:03
DX: S09.90XA Unspecified injury of head, initial encounter (principal); T21.22XA Burn of second degree of abdominal wall, initial encounter; W18.39XA Other fall on same level, initial encounter; Y92.018 Other place in single-family (private) house as the place of occurrence of the external cause; R42 Dizziness and giddiness; I10 Essential (primary) hypertension; E78.9 Disorder of lipoprotein metabolism, unspecified; F33.9 Major depressive disorder, recurrent, unspecified; F41.9 Anxiety disorder, unspecified; Z79.899 Other long term (current) drug therapy; Z79.01 Long term (current) use of anticoagulants; Z88.0 Allergy status to penicillin; Z88.1 Allergy status to other antibiotic agents; Z88.4 Allergy status to anesthetic agent; Z91.030 Bee allergy status
CPT/HCPCS: 70450; 71045; 72125; 72190; 80048; 82550; 82553; 83735; 84439; 84443; 84484; 85025; 85610; 85730; 93005; 93041; 94760; 96361; 96374; 99285; J2765

== ENCOUNTER → 2018-09-17 | Outpatient (REF) | payer MEDICARE ==
[~2018-09-17] MED LIST changes: +MECL-68 PO; +SILV1CRE60 TOP; +TOPR25TA PO
[2018-09-17 13:57] LABS: APPEARANCE, URINE HAZY (CLEAR); BACTERIA, URINE AUTO NEGATIVE (NEGATIVE); BILIRUBIN, URINE AUTO 1+ (NEGATIVE); BLOOD, URINE BLOOD 1+ (NEGATIVE); CALCIUM OXALATE CRYSTALS LARGE; COLOR, URINE AMBER (YELLOW); GLUCOSE, URINE (UA) AUTO NEGATIVE (NEGATIVE); KETONE, URINE AUTO TRACE mg/dL (NEGATIVE); LEUKOCYTE ESTERASE, URINE AUTO TRACE (NEGATIVE); MUCUS, URINE SMALL (NEGATIVE); NITRITE, URINE AUTO NEGATIVE (NEGATIVE); PROTEIN, URINE AUTO NEGATIVE (NEGATIVE); RBC, URINE AUTO 10 /HPF (0-3); RENAL EPITHELIAL CELLS 1 /HPF; SPECIFIC GRAVITY URINE AUTO 1.021 (1.002-1.035); SQUAMOUS EPITHELIAL CELL UR AU 2 /HPF (0-6); WBC, URINE AUTO 12 /HPF (0-3)
== END ==
LOC: M LAB REF 12:29
PROVIDERS: ATTEND Internal Medicine
DX: R31.9 Hematuria, unspecified (principal)

== ENCOUNTER → 2018-10-11 | Outpatient (REF) | payer MEDICARE ==
[2018-10-11 17:27] LABS: FREE T3 2.8 PG/ML (2.2-4.0)
[2018-10-12 09:58] LABS: THYROID PEROXIDASE ANTIBODY 41.2 U/ML (<60.0)
[2018-10-20 08:06] LABS: THRYOGLOBULIN ANTIBODIES (ATA) 156.6 IU/mL (0.0-0.9); THYROGLOBULIN RIA 18 ng/mL (.)
== END ==
LOC: M LAB REF 16:33
PROVIDERS: ATTEND Nurse Practitioner Adult Health
DX: E03.9 Hypothyroidism, unspecified (principal)

== ENCOUNTER → 2018-11-08 | Outpatient (CLI) | payer MEDICARE ==
--- NOTE | 2018-11-08 14:27 | REP ---
RENAL ULTRASOUND: Real-time sonographic evaluation of the kidneys is performed. The kidneys are mildly small in size, right kidney measuring 8.7 x 4.9 x 3.8 cm and left kidney 8.9 x 4.9 x 5.4 cm. There is no hydronephrosis bilaterally. No definite mass or calculus is seen. Ureteral jets are seen in the urinary bladder with Doppler color evaluation. IMPRESSION: Mildly small size of kidneys. No hydronephrosis. Electronically Signed by Luke Rodriguez MD 11/08/2018 02:42 P
== END ==
LOC: M RAD 12:36
PROVIDERS: ATTEND Internal Medicine Nephrology
DX: N18.3 Chronic kidney disease, stage 3 (moderate) (principal)

== ENCOUNTER 2018-11-21 13:18 | Emergency (ER) | payer MEDICARE ==
[~2018-11-21] VITALS: Ht 177.8 cm; Wt 101.7 kg
[~2018-11-21 13:18] MED LIST changes: -MECL-68 PO; +MECL1TAB31 PO; +OMEP1CAP73; -OMEP20CA4
[2018-11-21 14:07] LABS: HEMATOCRIT 39.7 % (36.0-47.0); HEMOGLOBIN 13.1 g/dl (12.0-15.5); MEAN CORPUSCULAR HEMOGLOBIN 29.5 pg (27.0-33.0); MEAN CORPUSCULAR VOLUME 89.4 fl (80.0-96.0); PLATELET COUNT, AUTOMATED 286 10^3/uL (150-450); RED BLOOD COUNT 4.44 10^6/uL (4.00-5.40); WHITE BLOOD COUNT 5.9 10^3/uL (4.0-10.0)
[2018-11-21 14:22] LABS: INR 0.99; PROTHROMBIN TIME 12.8 SECONDS (11.8-14.0)
--- NOTE | 2018-11-21 15:10 | REP ---
Left upper extremity duplex venous ultrasound: History: Left arm swelling and pain. Findings: The left internal jugular, axillary, brachial, basilic, and cephalic veins are anechoic and compressible in the left upper extremity. Color flow imaging is homogeneous. Spectral Doppler interrogation is unremarkable. There is no evidence of left upper extremity venous thrombosis. Incidental note is made of a 16 x 15 x 13 mm hypoechoic solid nodule in the soft tissues adjacent to the proximal subclavian vein on the left consistent with a hypertrophied lymph node. This has two hyperechoic foci within it consistent with calcification. Impression: There is a 16 mm solid nodule containing two punctate calcifications adjacent to the proximal subclavian vein on the left. This may be a mildly hypertrophied lymph node. This is of uncertain significance. Otherwise negative left upper extremity duplex venous ultrasound. No evidence of venous thrombosis. Electronically Signed by Wojciech Michael MD 11/21/2018 03:38 P
[2018-11-21] MEDS ORDERED: CLEO300C2 PO (15:26)
[2018-11-21 16:30] VITALS: BP 125/84
== END 2018-11-21 16:31 | disposition home or self-care (01) ==
LOC: M ED 13:18
DX: L04.2 Acute lymphadenitis of upper limb (principal); I80.8 Phlebitis and thrombophlebitis of other sites; I51.9 Heart disease, unspecified; I10 Essential (primary) hypertension; Z82.49 Family history of ischemic heart disease and other diseases of the circulatory system; Z98.61 Coronary angioplasty status; Z79.899 Other long term (current) drug therapy; Z88.0 Allergy status to penicillin; Z88.1 Allergy status to other antibiotic agents; Z88.8 Allergy status to other drugs, medicaments and biological substances; Z91.030 Bee allergy status

== ENCOUNTER → 2019-03-12 | Outpatient (CLI) | payer MEDICARE ==
[~2019-03-12] MED LIST changes: +CLEO300C2 PO
[2019-03-12 20:49] LABS: MAGNESIUM LEVEL 2.3 MG/DL (1.8-2.4)
[2019-03-12 21:05] LABS: TOTAL 25(OH) VITAMIN D 10.8 NG/ML (30.0-100.0)
== END ==
LOC: M WUC 17:38
PROVIDERS: ATTEND Physician Assistant
DX: E55.9 Vitamin D deficiency, unspecified (principal); K44.9 Diaphragmatic hernia without obstruction or gangrene; R14.0 Abdominal distension (gaseous); R13.10 Dysphagia, unspecified; K21.9 Gastro-esophageal reflux disease without esophagitis; R12 Heartburn; R11.2 Nausea with vomiting, unspecified

== ENCOUNTER → 2019-04-05 | Outpatient (CLI) | payer MEDICARE ==
[~2019-04-05] MED LIST changes: +QUET100T2 PO; -QUET1TAB8 PO
[2019-04-05 16:32] LABS: CREATININE FOR GFR 1.28 MG/DL (0.55-1.30); GLOMERULAR FILTRATION RATE 44.8 (>45)
== END ==
LOC: M LAB 15:43
PROVIDERS: ATTEND Student in an Organized Health Care Education/Training Program
DX: R31.29 Other microscopic hematuria (principal)

== ENCOUNTER → 2019-04-10 | Outpatient (REF) | payer MEDICARE ==
[2019-04-10 14:56] LABS: PERCENT SATURATION 12.6 % (13.2-45.0)
== END ==
LOC: M LAB REF 13:01
PROVIDERS: ATTEND Nurse Practitioner Family
DX: D50.9 Iron deficiency anemia, unspecified (principal)

== ENCOUNTER → 2019-11-11 | Outpatient (CLI) | payer MEDICARE ==
[~2019-11-11] MED LIST changes: +FERR325T16 PO; -RISP2TAB3; +RISP2TAB3 PO
[2019-11-11 13:55] LABS: ALBUMIN 3.6 GM/DL (3.2-5.2); BILIRUBIN,TOTAL 0.3 MG/DL (0.2-1.0); CALCIUM LEVEL 9.7 MG/DL (8.8-10.2); CHOLESTEROL RISK RATIO 4.964 (<5); CREATININE FOR GFR 1.21 MG/DL (0.55-1.30); FREE T4 0.98 NG/DL (0.76-1.46); GLOMERULAR FILTRATION RATE 47.8 (>45); POTASSIUM SERUM 4.2 MEQ/L (3.5-5.1); THYROID STIMULATING HORMONE 2.99 uIU/ML (0.358-3.740); TOTAL PROTEIN 7.2 GM/DL (6.4-8.2)
== END ==
LOC: M WUC 09:48
PROVIDERS: ATTEND Nurse Practitioner Family
DX: Z01.812 Encounter for preprocedural laboratory examination (principal); M25.561 Pain in right knee; E78.2 Mixed hyperlipidemia

== ENCOUNTER 2019-11-26 09:22 | Outpatient (RCR) | payer MEDICARE ==
[~2019-11-26 09:22] MED LIST changes: -FERR325T16 PO
== END 2019-11-27 ==
LOC: M PT 09:22
PROVIDERS: ATTEND Orthopaedic Surgery
DX: Z01.812 Encounter for preprocedural laboratory examination (principal); M25.561 Pain in right knee

== ENCOUNTER → 2019-12-03 | Outpatient (CLI) | payer MEDICARE ==
[~2019-12-03] MED LIST changes: +FERR325T16 PO
[2019-12-03 13:09] LABS: INR 1.97; PROTHROMBIN TIME 22.9 SECONDS (12.5-14.3)
[2019-12-03 13:10] LABS: PARTIAL THROMBOPLASTIN TIME 50.9 SECONDS (24.2-38.5)
[2019-12-06 16:08] LABS: ANTI THROMBIN 3 FUNCT ACTIVITY 176 % (75-135); PROTEIN C FUNCTIONAL ACTIVITY 138 % (73-180); PROTEIN S FUNCTIONAL ACTIVITY 124 % (63-140)
[2019-12-08 07:49] LABS: DRVV SCREEN 160.9 SEC; PTT LUPUS TYPE ANTICOAG SCREEN 3.9 (0-1.2)
[2019-12-08 07:57] LABS: DRVV CONFIRM 87.4 SEC; LUPUS CONFIRM RATIO 2.2
[2019-12-08 08:01] LABS: NORMALIZED RATIO 1.77 (0.00-1.20)
[2019-12-09 19:06] LABS: BETA-2 GLYCOPROTEIN I ABY IGA <9 (0-25); BETA-2 GLYCOPROTEIN I ABY IGG <9 (0-20); BETA-2 GLYCOPROTEIN I ABY IGM <9 (0-32); CARDIOLIPIN IGA ANTIBODY <9 APL U/mL (0-11); CARDIOLIPIN IGG ANTIBODY <9 GPL U/mL (0-14); CARDIOLIPIN IGM ANTIBODY <9 MPL U/mL (0-12); HOMOCYST(E)INE SERUM 14.6 umol/L (0.0-17.2)
[2019-12-11 14:09] LABS: HEXAGONAL PHASE PHOSPHOLIPID 7 sec (0-11)
== END ==
LOC: M WUC 09:32
DX: I82.441 Acute embolism and thrombosis of right tibial vein (principal)

== ENCOUNTER → 2019-12-10 | Outpatient (REF) | payer MEDICARE ==
[2019-12-10 18:13] LABS: PERCENT SATURATION 8.1 % (13.2-45.0)
== END ==
LOC: M LAB REF 17:13
PROVIDERS: ATTEND Nurse Practitioner Family
DX: D50.9 Iron deficiency anemia, unspecified (principal)

== ENCOUNTER 2019-12-18 12:49 | Outpatient (CLI) | payer MEDICARE ==
[~2019-12-18] VITALS: Ht 205.7 cm; Wt 107.2 kg
[~2019-12-18 12:49] MED LIST changes: -FERR325T16 PO
[2019-12-18] MEDS ORDERED: NS 1,000 ML IV SCH (13:00)
[2019-12-18] MEDS ORDERED: diphenhydrAMINE 50MG/ML VIAL (J1200) IV PRN (13:00)
[2019-12-18] MEDS ORDERED: methylPREDNISolone 125MG 2ML VIAL IV PRN (13:00)
[2019-12-18] MEDS ORDERED: ALBUTEROL SULFATE 2.5 MG/0.5 ML INH NEB SOLN INH PRN (13:00)
[2019-12-18] MEDS ORDERED: EPINEPHrine INJ 1 MG/ML 1ML AMP IM PRN (13:00)
[2019-12-18] MEDS ORDERED: FERRIC CARBOXYMALTOSE INJ 750 MG in NS 250 ML IV ONE (13:00)
[2019-12-18 13:05] VITALS: BP 119/79
[2019-12-18 14:05] VITALS: BP 132/77
[2019-12-18 15:25] VITALS: BP 122/68
[2019-12-18 16:05] VITALS: BP 140/70
== END 2019-12-18 16:05 | disposition home or self-care (01) ==
LOC: M INFU 12:49
PROVIDERS: ATTEND Internal Medicine Nephrology
DX: N18.9 Chronic kidney disease, unspecified (principal); D63.1 Anemia in chronic kidney disease
CPT/HCPCS: 96365; 96366; J1439

== ENCOUNTER → 2019-12-18 | Outpatient (REF) | payer MEDICARE ==
[2019-12-27 12:48] LABS: FACTOR II PROTHROMBIN GENE AN SEE SEPARATE REPORT
== END ==
LOC: M LAB REF 09:21
DX: I82.441 Acute embolism and thrombosis of right tibial vein (principal)

== ENCOUNTER 2019-12-25 12:42 | Outpatient (CLI) | payer MEDICARE ==
[~2019-12-25] VITALS: Ht 175.3 cm; Wt 107.2 kg
[2019-12-25 12:45] VITALS: BP 133/78
[2019-12-25] MEDS ORDERED: NS 1,000 ML IV SCH (13:00)
[2019-12-25] MEDS ORDERED: FERRIC CARBOXYMALTOSE INJ 750 MG in NS 250 ML IV ONE (13:00)
[2019-12-25] MEDS ORDERED: methylPREDNISolone 125MG 2ML VIAL IV PRN (13:00)
[2019-12-25] MEDS ORDERED: ALBUTEROL SULFATE 2.5 MG/0.5 ML INH NEB SOLN INH PRN (13:00)
[2019-12-25] MEDS ORDERED: EPINEPHrine INJ 1 MG/ML 1ML AMP IM PRN (13:00)
[2019-12-25] MEDS ORDERED: diphenhydrAMINE 50MG/ML VIAL (J1200) IV PRN (13:00)
[2019-12-25 13:34] VITALS: BP 131/81
[2019-12-25 14:27] VITALS: BP 137/84
[2019-12-25] MEDS ORDERED: FERR325T16 PO (14:47)
[2019-12-25 15:28] VITALS: BP 134/85
== END 2019-12-25 15:30 | disposition home or self-care (01) ==
LOC: M INFU 12:42
PROVIDERS: ATTEND Internal Medicine Nephrology
DX: N18.9 Chronic kidney disease, unspecified (principal); D63.1 Anemia in chronic kidney disease
CPT/HCPCS: 96365; 96366; J1439

== ENCOUNTER 2019-12-26 09:37 | Outpatient (RCR) | payer MEDICARE ==
[~2019-12-26 09:37] MED LIST changes: +FERR325T16 PO
== END 2019-12-28 ==
LOC: M PT 09:37
PROVIDERS: ATTEND Orthopaedic Surgery
DX: Z47.1 Aftercare following joint replacement surgery (principal); Z96.651 Presence of right artificial knee joint

== ENCOUNTER 2020-01-08 14:45 | Outpatient (RCR) | payer MEDICARE ==
[~2020-01-08 14:45] MED LIST changes: +RISP-9 PO; -RISP2TAB3 PO
== END 2020-01-27 ==
LOC: M PT 14:45
PROVIDERS: ATTEND Orthopaedic Surgery
DX: Z96.651 Presence of right artificial knee joint (principal)

== ENCOUNTER → 2020-01-08 | Outpatient (CLI) | payer MEDICARE ==
[2020-01-08 20:03] LABS: BASO % 0.5 % (0.0-1.0); EOS # 0.1 10^3/uL (0.0-0.5); EOS % 1.6 % (0.0-3.0); HEMATOCRIT 38.4 % (36.0-47.0); HEMOGLOBIN 11.9 g/dl (12.0-15.5); LYMPH # 1.6 10^3/uL (1.5-5.0); LYMPH % 29.2 % (24.0-44.0); MEAN CORPUSCULAR HEMOGLOBIN 28.2 pg (27.0-33.0); MONO # 0.8 10^3/uL (0.0-0.8); MONO % 14.9 % (0.0-5.0); NEUTROPHILS # 2.9 10^3/uL (1.5-8.5); NEUTROPHILS % 53.3 % (36.0-66.0); PLATELET COUNT, AUTOMATED 309 10^3/uL (150-450); RED BLOOD COUNT 4.22 10^6/uL (4.00-5.40); WHITE BLOOD COUNT 5.5 10^3/uL (4.0-10.0)
== END ==
LOC: M WUC 14:56
PROVIDERS: ATTEND Nurse Practitioner Family
DX: N18.9 Chronic kidney disease, unspecified (principal); D63.1 Anemia in chronic kidney disease

== ENCOUNTER → 2020-03-25 | Outpatient (CLI) | payer MEDICARE ==
--- NOTE | 2020-03-25 10:55 | REP ---
INDICATION: PERSONAL H/O VENOUS THROBOSIS /EMBOLISM W/ H/O DVT COMPARISON: None. TECHNIQUE: Rodriguez scale and color Doppler evaluation bilateral lower extremities using linear high frequency transducer. FINDINGS: Ultrasound examination of the right and left lower extremity deep venous structures from the common femoral vein to the popliteal vein demonstrates normal compressibility flow and wave patterns in response to respiration and augmentation. There is no evidence for deep venous thrombosis. IMPRESSION: No evidence for deep venous thrombosis. <Electronically signed by Benjamin Marcum > 03/25/20 [id number]
== END ==
LOC: M RAD 10:09
PROVIDERS: ATTEND Physician Assistant
DX: Z86.718 Personal history of other venous thrombosis and embolism (principal)

== ENCOUNTER → 2020-05-12 | Outpatient (CLI) | payer MEDICARE ==
[2020-05-12 16:14] LABS: BASO % 0.4 % (0.0-1.0); EOS # 0.1 10^3/uL (0.0-0.5); EOS % 1.2 % (0.0-3.0); HEMATOCRIT 39.4 % (36.0-47.0); HEMOGLOBIN 12.6 g/dl (12.0-15.5); LYMPH # 1.7 10^3/uL (1.5-5.0); LYMPH % 33.1 % (24.0-44.0); MEAN CORPUSCULAR HEMOGLOBIN 29.6 pg (27.0-33.0); MEAN CORPUSCULAR VOLUME 92.5 fl (80.0-96.0); MONO # 0.6 10^3/uL (0.0-0.8); MONO % 11.9 % (2.0-8.0); NEUTROPHILS # 2.7 10^3/uL (1.5-8.5); NEUTROPHILS % 52.6 % (36.0-66.0); PLATELET COUNT, AUTOMATED 280 10^3/uL (150-450); RED BLOOD COUNT 4.26 10^6/uL (4.00-5.40)
[2020-05-12 16:55] LABS: FREE T3 1.8 PG/ML (2.2-4.0); THYROID STIMULATING HORMONE 3.86 uIU/ML (0.358-3.740); THYROXINE (T4) 7.8 UG/DL (4.5-12.0)
== END ==
LOC: M WUC 14:28
PROVIDERS: ATTEND Anesthesiology Pain Medicine
DX: R53.83 Other fatigue (principal)

== ENCOUNTER → 2020-05-20 | Outpatient (REF) | payer MEDICARE | LOC: M WUC 09:24 | PROVIDERS: ATTEND Physician Assistant | DX: J02.9 Acute pharyngitis, unspecified (principal) ==

== ENCOUNTER → 2020-07-15 | Outpatient (CLI) | payer MEDICARE ==
[~2020-07-15] MED LIST changes: +FERR324T21 PO; -FERR325T16 PO
[2020-07-15 16:16] LABS: BASO % 0.5 % (0.0-1.0); EOS # 0.1 10^3/uL (0.0-0.5); EOS % 1.4 % (0.0-3.0); HEMATOCRIT 40.7 % (36.0-47.0); HEMOGLOBIN 12.9 g/dl (12.0-15.5); LYMPH # 2.4 10^3/uL (1.5-5.0); LYMPH % 37.5 % (24.0-44.0); MEAN CORPUSCULAR HEMOGLOBIN 29.2 pg (27.0-33.0); MEAN CORPUSCULAR HGB CONC 31.7 g/dl (32.0-36.5); MEAN CORPUSCULAR VOLUME 92.1 fl (80.0-96.0); MONO # 0.8 10^3/uL (0.0-0.8); MONO % 12.7 % (2.0-8.0); NEUTROPHILS % 47.4 % (36.0-66.0); PLATELET COUNT, AUTOMATED 229 10^3/uL (150-450); RED BLOOD COUNT 4.42 10^6/uL (4.00-5.40); WHITE BLOOD COUNT 6.3 10^3/uL (4.0-10.0)
[2020-07-15 16:38] LABS: FREE T3 2.3 PG/ML (2.2-4.0); THYROID STIMULATING HORMONE 1.48 uIU/ML (0.358-3.740); THYROXINE (T4) 8.8 UG/DL (4.5-12.0)
== END ==
LOC: M WUC 14:48
PROVIDERS: ATTEND Anesthesiology Pain Medicine
DX: R53.83 Other fatigue (principal)

== ENCOUNTER 2020-07-26 13:26 | Emergency (ER) | payer MEDICARE ==
[~2020-07-26] VITALS: Ht 175.3 cm; Wt 100.0 kg
[2020-07-26 13:27] VITALS: BP 157/87
[2020-07-26] MEDS ORDERED: ATOR40TA75 (13:39)
[2020-07-26] MEDS ORDERED: LEVO100T5 (13:39)
--- NOTE | 2020-07-26 15:01 | REP ---
INDICATION: pain swellling COMPARISON: None. TECHNIQUE: Rodriguez scale and color Doppler evaluation using linear high frequency transducer. FINDINGS: Ultrasound examination of the left lower extremity deep venous structures from the common femoral vein through the calf/ankle to include the peroneal, and tibial veins demonstrates normal compressibility flow and wave patterns in response to respiration and augmentation. There is no evidence for deep venous thrombosis. Contralateral CFV is patent and normal. IMPRESSION: No evidence for deep venous thrombosis. <Electronically signed by Benjamin Marcum > 07/26/20 [id number]
== END 2020-07-26 15:37 | disposition home or self-care (01) ==
LOC: M ED 13:26
DX: I80.02 Phlebitis and thrombophlebitis of superficial vessels of left lower extremity (principal); I25.10 Atherosclerotic heart disease of native coronary artery without angina pectoris; I10 Essential (primary) hypertension; F31.9 Bipolar disorder, unspecified; C44.520 Squamous cell carcinoma of anal skin; Z92.21 Personal history of antineoplastic chemotherapy; Z86.711 Personal history of pulmonary embolism; F32.9 Major depressive disorder, single episode, unspecified; Z87.891 Personal history of nicotine dependence; Z79.899 Other long term (current) drug therapy; Z88.0 Allergy status to penicillin; Z91.030 Bee allergy status; Z88.1 Allergy status to other antibiotic agents; Z88.8 Allergy status to other drugs, medicaments and biological substances

== ENCOUNTER 2020-09-04 17:00 | Emergency (ER) | payer MEDICARE ==
[~2020-09-04] VITALS: Ht 175.3 cm; Wt 105.6 kg
[~2020-09-04 17:00] MED LIST changes: +ATOR40TA75; +LEVO100T5
[2020-09-04] MEDS ORDERED: LAMI1TAB7 PO (17:10)
[2020-09-04] MEDS ORDERED: QUET200T2 PO (17:10)
[2020-09-04] MEDS ORDERED: TRAZ-252 PO (17:10)
[2020-09-04] MEDS ORDERED: ECOT81TA5 PO (17:10)
--- NOTE | 2020-09-04 19:53 | REP ---
INDICATION: pain and swelling COMPARISON: 11/21/2018 TECHNIQUE: Rodriguez scale and color Doppler evaluation using linear high frequency transducer. FINDINGS: Ultrasound examination of the right upper extremity demonstrates occluding thrombus in the axillary, basilic, and brachial veins. Cephalic, subclavian, and jugular veins along with contralateral subclavian vein are patent. IMPRESSION: Occluding thrombus in the right axillary, basilic and brachial veins. <Electronically signed by Benjamin Marcum > 09/04/20 1946
[2020-09-04] MEDS ORDERED: APIXABAN 5 MG TAB (ELIQUIS) PO ONE (20:30)
[2020-09-04] MEDS ORDERED: ELIQ5TAB PO (20:32)
[2020-09-04 20:47] VITALS: BP 135/71
== END 2020-09-04 20:50 | disposition home or self-care (01) ==
LOC: M ED 17:00
DX: I82.621 Acute embolism and thrombosis of deep veins of right upper extremity (principal); I10 Essential (primary) hypertension; E78.5 Hyperlipidemia, unspecified; K21.9 Gastro-esophageal reflux disease without esophagitis; N18.9 Chronic kidney disease, unspecified; E03.9 Hypothyroidism, unspecified; F41.9 Anxiety disorder, unspecified; F31.89 Other bipolar disorder; Z86.711 Personal history of pulmonary embolism; Z86.718 Personal history of other venous thrombosis and embolism; Z85.828 Personal history of other malignant neoplasm of skin; Z79.899 Other long term (current) drug therapy; Z88.0 Allergy status to penicillin; Z91.030 Bee allergy status; Z88.1 Allergy status to other antibiotic agents; Z88.8 Allergy status to other drugs, medicaments and biological substances

== ENCOUNTER 2020-09-14 17:10 | Observation (INO) | payer MEDICARE ==
[~2020-09-14] VITALS: Ht 175.3 cm; Wt 104.5 kg
[~2020-09-14 17:10] MED LIST changes: +ECOT81TA5 PO; +ELIQ5TAB PO; +QUET200T2 PO; +TRAZ-252 PO
[2020-09-14 19:52] LABS: BASO # 0.1 10^3/uL (0.0-0.2); BASO % 0.6 % (0.0-1.0); EOS # 0.1 10^3/uL (0.0-0.5); EOS % 1.6 % (0.0-3.0); HEMATOCRIT 40.3 % (36.0-47.0); HEMOGLOBIN 12.9 g/dl (12.0-15.5); LYMPH % 24.7 % (24.0-44.0); MEAN CORPUSCULAR HEMOGLOBIN 29.3 pg (27.0-33.0); MEAN CORPUSCULAR VOLUME 91.6 fl (80.0-96.0); MONO # 0.8 10^3/uL (0.0-0.8); MONO % 9.6 % (2.0-8.0); PLATELET COUNT, AUTOMATED 279 10^3/uL (150-450)
[2020-09-14 20:06] LABS: INR 1.05; PROTHROMBIN TIME 13.9 SECONDS (12.5-14.3)
[2020-09-14 20:07] LABS: PARTIAL THROMBOPLASTIN TIME 29.1 SECONDS (24.2-38.5)
[2020-09-14 20:14] LABS: BLOOD UREA NITROGEN 12 MG/DL (7-18); CALCIUM LEVEL 9.6 MG/DL (8.8-10.2); CARBON DIOXIDE LEVEL 28 MEQ/L (21-32); CHLORIDE LEVEL 107 MEQ/L (98-107); CK-MB VALUE MASS 1.1 NG/ML (<3.6); CPK CREATINE PHOSPHOKINASE 66 U/L (26-192); CREATININE FOR GFR 1.23 MG/DL (0.55-1.30); FREE T4 0.99 NG/DL (0.76-1.46); GLOMERULAR FILTRATION RATE 46.8 (>45); GLUCOSE, FASTING 80 MG/DL (70-100); MAGNESIUM LEVEL 2.3 MG/DL (1.8-2.4); MB/CK RELATIVE INDEX 1.67 (< OR =4); POTASSIUM SERUM 4.2 MEQ/L (3.5-5.1); SODIUM LEVEL 141 MEQ/L (136-145); TROPONIN I < 0.02 NG/ML (< 0.10)
[2020-09-14 20:50] LABS: RSV AMPLIFICATION NEGATIVE (NEGATIVE)
[2020-09-14] MEDS ORDERED: ACETAMINOPHEN TAB 650MG DOSE (2X325MG) PO PRN (21:35)
[2020-09-14] MEDS ORDERED: MOM 30ML SUSPENSION UDC PO PRN (21:35)
[2020-09-14] MEDS ORDERED: ATOR40TA75 PO (22:57)
[2020-09-14] MEDS ORDERED: TRAZ-252 PO (22:57)
[2020-09-14] MEDS ORDERED: OMEP-173 PO (22:57)
[2020-09-14] MEDS ORDERED: ELIQ5TAB PO (22:57)
[2020-09-14] MEDS ORDERED: LAMO100T3 PO (22:57)
[2020-09-14] MEDS ORDERED: ADDE30TA PO (22:57)
[2020-09-14] MEDS ORDERED: QUET100T2 PO (22:57)
[2020-09-14] MEDS ORDERED: SYNT100T PO (22:57)
[2020-09-14] MEDS ORDERED: CLON1TAB8 PO (22:57)
[2020-09-14] MEDS ORDERED: RISP-8 PO (22:57)
[2020-09-14] MEDS ORDERED: VITMTA PO (22:57)
[2020-09-14] MEDS ORDERED: HOME MED LIST COMPLETE! XX SCH (23:00)
[2020-09-14 23:42] VITALS: BP 111/71
[2020-09-15] MEDS ORDERED: APIXABAN 5 MG TAB (ELIQUIS) PO SCH (01:15)
[2020-09-15] MEDS ORDERED: clonazePAM 1 MG TAB PO SCH (01:15)
[2020-09-15] MEDS ORDERED: QUEtiapine FUMARATE 100 MG TAB PO SCH (01:15)
[2020-09-15] MEDS ORDERED: risperiDONE 2 MG TAB PO SCH (01:15)
[2020-09-15] MEDS ORDERED: traZODone 50 MG TAB PO SCH (01:15)
[2020-09-15] MEDS ORDERED: ISOVUE-370 76% 100ML VIAL As Ordered ONE (01:40)
[2020-09-15] MEDS ORDERED: LEVOTHYROXINE 100MCG TABLET (0.1MG) PO SCH (06:00)
[2020-09-15] MEDS ORDERED: MULTIVITAMINS/MINERALS THERAP 1 TAB PO SCH (09:00)
[2020-09-15] MEDS ORDERED: OMEPRAZOLE 20MG CAP PO SCH (09:00)
[2020-09-15] MEDS ORDERED: VENLAFAXINE **XR** 75MG CAPSULE PO SCH (09:00)
[2020-09-15] MEDS ORDERED: ATORVASTATIN 20 MG TAB PO SCH (09:00)
[2020-09-15] MEDS ORDERED: lamoTRIgine 100MG TAB PO SCH (09:00)
[2020-09-24] MEDS ORDERED: LISI5TAB11 PO (13:04)
[2020-09-24] MEDS ORDERED: SERO1TAB PO (13:04)
== END 2020-09-15 01:49 | disposition left against medical advice (07) ==
LOC: M ED 17:10 → M ED INP 17:11 → UNDOADMOB 17:11
PROVIDERS: ADMIT Internal Medicine; ATTEND Internal Medicine
DX: R55 Syncope and collapse (principal); E16.2 Hypoglycemia, unspecified; N18.30 Chronic kidney disease, stage 3 unspecified; N25.81 Secondary hyperparathyroidism of renal origin; I73.9 Peripheral vascular disease, unspecified; Z85.048 Personal history of other malignant neoplasm of rectum, rectosigmoid junction, and anus; I10 Essential (primary) hypertension; F31.9 Bipolar disorder, unspecified; Z86.711 Personal history of pulmonary embolism; Z86.718 Personal history of other venous thrombosis and embolism; Z79.01 Long term (current) use of anticoagulants; Z79.899 Other long term (current) drug therapy; Z88.0 Allergy status to penicillin; Z91.030 Bee allergy status; Z92.21 Personal history of antineoplastic chemotherapy; Z92.3 Personal history of irradiation; K57.90 Diverticulosis of intestine, part unspecified, without perforation or abscess without bleeding; Z87.891 Personal history of nicotine dependence
CPT/HCPCS: 36415; 70450; 71045; 80048; 82550; 82553; 83735; 84439; 84443; 84484; 85018; 85025; 85610; 85730; 87631; 93005; 93041; 94760; 99285; G0378; Q9967

== ENCOUNTER → 2020-09-23 | Outpatient (CLI) | payer MEDICARE ==
[~2020-09-23] MED LIST changes: +ADDE30TA PO; +ATOR40TA75 PO; +CLON1TAB8 PO; +LAMO100T3 PO; +LISI-898 PO; +OMEP-218 PO; +RISP-8 PO; +SERO1TAB PO; +SYNT100T PO
--- NOTE | 2020-09-23 15:34 | REP ---
INDICATION: SOB. COMPARISON: None. FINDINGS: The superior mediastinal structures are midline. The cardiac silhouette is unremarkable in size, shape, and position. The diaphragmatic surfaces of the lungs are regular, and the costophrenic angles are clear. The pulmonary stratton are clear. The imaged osseous structures are intact. IMPRESSION: There is no acute cardiopulmonary disease. <Electronically signed by Gama Sprague > 09/23/20 [id number]
== END ==
LOC: M WUC 15:16
PROVIDERS: ATTEND Nurse Practitioner Family
DX: R06.02 Shortness of breath (principal)

== ENCOUNTER → 2020-10-12 | Outpatient (CLI) | payer MEDICARE ==
[2020-10-12 17:18] LABS: BASO # 0.1 10^3/uL (0.0-0.2); BASO % 0.7 % (0.0-1.0); EOS # 0.1 10^3/uL (0.0-0.5); EOS % 1.1 % (0.0-3.0); HEMATOCRIT 38.8 % (36.0-47.0); HEMOGLOBIN 12.4 g/dl (12.0-15.5); LYMPH # 2.1 10^3/uL (1.5-5.0); LYMPH % 27.5 % (24.0-44.0); MEAN CORPUSCULAR VOLUME 90.7 fl (80.0-96.0); MONO # 0.7 10^3/uL (0.0-0.8); MONO % 8.6 % (2.0-8.0); NEUTROPHILS # 4.7 10^3/uL (1.5-8.5); NEUTROPHILS % 61.7 % (36.0-66.0); PLATELET COUNT, AUTOMATED 274 10^3/uL (150-450); RED BLOOD COUNT 4.28 10^6/uL (4.00-5.40); WHITE BLOOD COUNT 7.6 10^3/uL (4.0-10.0)
[2020-10-12 17:35] LABS: CALCIUM LEVEL 9.5 MG/DL (8.8-10.2); CREATININE FOR GFR 1.19 MG/DL (0.55-1.30); GLOMERULAR FILTRATION RATE 48.6 (>45); POTASSIUM SERUM 3.7 MEQ/L (3.5-5.1)
== END ==
LOC: M WUC 15:10
PROVIDERS: ATTEND Nurse Practitioner Family
DX: R10.32 Left lower quadrant pain (principal)

== ENCOUNTER → 2020-10-12 | Outpatient (REF) | payer MEDICARE | LOC: M LAB REF 17:18 | PROVIDERS: ATTEND Nurse Practitioner Family | DX: R10.32 Left lower quadrant pain (principal) ==

== ENCOUNTER → 2020-10-13 | Outpatient (CLI) | payer MEDICARE ==
[~2020-10-13] MED LIST changes: +GASTROGRAFIN SOLUTION 30ML (Q9963) As Ordered ONE; +ISOVUE-370 76% 100ML VIAL As Ordered ONE
--- NOTE | 2020-10-13 12:32 | REP ---
INDICATION: LLQ PAIN COMPARISON: 04/20/2018. TECHNIQUE: CT Scan of the abdomen and pelvis was performed with intravenous administration of 100 cc of Isovue 370, and oral contrast. Sagittal and coronal reconstruction images are performed. FINDINGS: Lung bases: There is mild patchy atelectasis or infiltrate in the medial segment of the right middle lobe. Liver: There is a stable subcentimeter hypodense nodule in the posterior right lobe of the liver which is stable, likely representing a cyst. Gallbladder: Prior cholecystectomy. Spleen: Normal. Adrenals: Normal. Pancreas: Normal. Kidneys: Normal. Small and large bowel: There is no bowel wall thickening. In the left lower quadrant along the sigmoid colon there is an oval fat density with surrounding mild inflammatory density, having the appearance of epiploic appendagitis. Free fluid: None. Abdominal aorta: No aneurysm or dissection. Adenopathy: None. Appendix: Not inflamed. Osseous structures: There are degenerative changes of the spine without compression deformity. Pelvis: No mass. Prior hysterectomy. IMPRESSION: CT findings consistent with epiploic appendagitis along the sigmoid colon. Mild patchy atelectasis or infiltrate medial segment right middle lobe. <Electronically signed by Luke Rodriguez > 10/13/20 [id number]
== END ==
LOC: M RAD 10:08
PROVIDERS: ATTEND Nurse Practitioner Family
DX: R10.32 Left lower quadrant pain (principal)
CPT/HCPCS: 74177; Q9963; Q9967

== ENCOUNTER → 2020-11-09 | Outpatient (REF) | payer MEDICARE ==
[~2020-11-09] MED LIST changes: -GASTROGRAFIN SOLUTION 30ML (Q9963) As Ordered ONE; -ISOVUE-370 76% 100ML VIAL As Ordered ONE
== END ==
LOC: M LAB REF 17:25
PROVIDERS: ATTEND Nurse Practitioner Family
DX: R32 Unspecified urinary incontinence (principal)

== ENCOUNTER → 2021-01-29 | Outpatient (REF) | payer MEDICARE ==
[2021-01-29 18:13] LABS: FREE T4 1.05 NG/DL (0.76-1.46); THYROID STIMULATING HORMONE 3.05 uIU/ML (0.358-3.740)
== END ==
LOC: M LAB REF 16:46
PROVIDERS: ATTEND Nurse Practitioner Family
DX: E03.9 Hypothyroidism, unspecified (principal)

== ENCOUNTER → 2021-03-10 | Outpatient (REF) ==
[~2021-03-10] MED LIST changes: -LISI-898 PO; +LISI5TAB11 PO
== END ==
LOC: M LABSMTC 10:39
PROVIDERS: ATTEND Pediatrics
DX: Z11.52 Encounter for screening for COVID-19 (principal)

== ENCOUNTER → 2021-05-24 | Outpatient (CLI) | payer MEDICARE ==
[~2021-05-24] MED LIST changes: +OMEP-173 PO; -OMEP-218 PO
[2021-05-24 12:32] LABS: HEMATOCRIT 38.6 % (36.0-47.0); HEMOGLOBIN 12.2 g/dl (12.0-15.5); MEAN CORPUSCULAR HEMOGLOBIN 28.5 pg (27.0-33.0); MEAN CORPUSCULAR HGB CONC 31.6 g/dl (32.0-36.5); MEAN CORPUSCULAR VOLUME 90.2 fl (80.0-96.0); PLATELET COUNT, AUTOMATED 258 10^3/uL (150-450); RED BLOOD COUNT 4.28 10^6/uL (4.00-5.40); WHITE BLOOD COUNT 5.6 10^3/uL (4.0-10.0)
[2021-05-24 12:47] LABS: CALCIUM LEVEL 9.5 MG/DL (8.8-10.2); CREATININE FOR GFR 1.23 MG/DL (0.55-1.30); GLOMERULAR FILTRATION RATE 46.6 (>45); MAGNESIUM LEVEL 1.9 MG/DL (1.8-2.4); POTASSIUM SERUM 4.6 MEQ/L (3.5-5.1); THYROID STIMULATING HORMONE 2.49 uIU/ML (0.358-3.740)
== END ==
LOC: M WUC 09:35
PROVIDERS: ATTEND Physician Assistant
DX: R00.2 Palpitations (principal)

== ENCOUNTER 2021-06-15 14:31 | Emergency (ER) | payer MEDICARE ==
[~2021-06-15] VITALS: Ht 175.3 cm; Wt 102.3 kg
[2021-06-15] MEDS ORDERED: CLON1TAB17 PO (15:52)
[2021-06-15] MEDS ORDERED: DEXTR PO (15:52)
[2021-06-15] MEDS ORDERED: AMPHETAMINE PO (15:52)
[2021-06-15] MEDS ORDERED: QUET200T2 PO (15:52)
[2021-06-15] MEDS ORDERED: OMEP-173 PO (15:52)
[2021-06-15 18:56] VITALS: BP 182/110
== END 2021-06-15 19:06 | disposition home or self-care (01) ==
LOC: M ED 14:31
DX: S82.401A Unspecified fracture of shaft of right fibula, initial encounter for closed fracture (principal); X50.1XXA Overexertion from prolonged static or awkward postures, initial encounter; Y92.099 Unspecified place in other non-institutional residence as the place of occurrence of the external cause; Y93.9 Activity, unspecified; Y99.9 Unspecified external cause status; I10 Essential (primary) hypertension; N18.9 Chronic kidney disease, unspecified; K21.9 Gastro-esophageal reflux disease without esophagitis; E78.5 Hyperlipidemia, unspecified; Z86.711 Personal history of pulmonary embolism; Z86.718 Personal history of other venous thrombosis and embolism; Z96.652 Presence of left artificial knee joint; Z79.01 Long term (current) use of anticoagulants; Z88.0 Allergy status to penicillin; Z88.1 Allergy status to other antibiotic agents; Z87.891 Personal history of nicotine dependence; Z82.49 Family history of ischemic heart disease and other diseases of the circulatory system; Z83.49 Family history of other endocrine, nutritional and metabolic diseases; Z79.899 Other long term (current) drug therapy

== ENCOUNTER 2021-06-18 14:18 | Emergency (ER) | payer MEDICARE ==
[~2021-06-18] VITALS: Ht 177.8 cm; Wt 102.3 kg
[~2021-06-18 14:18] MED LIST changes: +AMPHETAMINE PO; +CLON1TAB17 PO; +DEXTR PO
[2021-06-18] MEDS ORDERED: CEPH500C PO (17:16)
[2021-06-18 17:18] VITALS: BP 130/82
== END 2021-06-18 17:44 | disposition home or self-care (01) ==
LOC: M ED 14:18
DX: L03.115 Cellulitis of right lower limb (principal); Z46.89 Encounter for fitting and adjustment of other specified devices; I10 Essential (primary) hypertension; K21.9 Gastro-esophageal reflux disease without esophagitis; F31.9 Bipolar disorder, unspecified; F41.9 Anxiety disorder, unspecified; F32.9 Major depressive disorder, single episode, unspecified; Z79.01 Long term (current) use of anticoagulants; Z79.899 Other long term (current) drug therapy; Z88.0 Allergy status to penicillin; Z88.1 Allergy status to other antibiotic agents; Z91.030 Bee allergy status

== ENCOUNTER → 2021-06-23 | Outpatient (CLI) | payer MEDICARE ==
[~2021-06-23] MED LIST changes: +CEPH500C PO
== END ==
LOC: M SOG 08:22
PROVIDERS: ATTEND Orthopaedic Surgery Adult Reconstructive Orthopaedic Surgery
DX: S82.401A Unspecified fracture of shaft of right fibula, initial encounter for closed fracture (principal); X58.XXXA Exposure to other specified factors, initial encounter; Y92.9 Unspecified place or not applicable; Y93.9 Activity, unspecified; Y99.9 Unspecified external cause status

== ENCOUNTER → 2021-07-12 | Outpatient (CLI) | payer MEDICARE | LOC: M WHC 14:07 | PROVIDERS: ATTEND Pediatrics | DX: Z13.820 Encounter for screening for osteoporosis (principal); N95.9 Unspecified menopausal and perimenopausal disorder; Z12.31 Encounter for screening mammogram for malignant neoplasm of breast; M85.851 Other specified disorders of bone density and structure, right thigh; M85.852 Other specified disorders of bone density and structure, left thigh; Z85.41 Personal history of malignant neoplasm of cervix uteri; Z80.3 Family history of malignant neoplasm of breast ==

== ENCOUNTER → 2021-07-21 | Outpatient (CLI) | payer MEDICARE | LOC: M SOG 10:47 | PROVIDERS: ATTEND Orthopaedic Surgery Adult Reconstructive Orthopaedic Surgery | DX: S82.831A Other fracture of upper and lower end of right fibula, initial encounter for closed fracture (principal); Z96.651 Presence of right artificial knee joint; X58.XXXA Exposure to other specified factors, initial encounter; Y92.9 Unspecified place or not applicable; Y93.9 Activity, unspecified; Y99.9 Unspecified external cause status ==

== ENCOUNTER → 2021-09-29 | Outpatient (CLI) | payer MEDICARE | LOC: M LABSMTC 09:52 | PROVIDERS: ATTEND Anesthesiology | DX: Z01.812 Encounter for preprocedural laboratory examination (principal); Z20.822 Contact with and (suspected) exposure to COVID-19 ==

== ENCOUNTER 2021-09-30 08:03 | Day surgery (SDC) | payer MEDICARE ==
[~2021-09-30] VITALS: Ht 175.3 cm; Wt 103.3 kg
[~2021-09-30 08:03] MED LIST changes: +NS 1,000 ML IV ONE
[2021-09-30] MEDS ORDERED: propofoL 500 MG/50 ML VIAL As Ordered ONE (09:54)
[2021-09-30] MEDS ORDERED: LIDOCAINE 2% 100MG/5ML SDV (FOR ANES.) As Ordered ONE (10:36)
[2021-09-30] MEDS ORDERED: fentaNYL 100 MCG/2 ML INJECTION As Ordered ONE (10:39)
[2021-09-30] MEDS ORDERED: hydrALAZINE 20MG/ML 1ML VIAL (J0360 PER 20MG) As Ordered ONE ×2 (11:32→11:51)
[2021-09-30] MEDS ORDERED: METOPROLOL 5 MG/5 ML VIAL As Ordered ONE (11:42)
[2021-09-30 12:28] VITALS: BP 143/68
== END 2021-09-30 13:37 | disposition home or self-care (01) ==
LOC: M OPP 08:03
PROVIDERS: ATTEND Surgery
DX: Z86.010 Personal history of colon polyps (principal); Z85.038 Personal history of other malignant neoplasm of large intestine; R10.13 Epigastric pain; D12.6 Benign neoplasm of colon, unspecified; D12.8 Benign neoplasm of rectum; K64.4 Residual hemorrhoidal skin tags; K31.7 Polyp of stomach and duodenum; I10 Essential (primary) hypertension; E03.9 Hypothyroidism, unspecified; K21.9 Gastro-esophageal reflux disease without esophagitis; M19.90 Unspecified osteoarthritis, unspecified site; F41.9 Anxiety disorder, unspecified; F31.9 Bipolar disorder, unspecified; Z92.21 Personal history of antineoplastic chemotherapy; Z96.653 Presence of artificial knee joint, bilateral; Z86.711 Personal history of pulmonary embolism; Z88.0 Allergy status to penicillin; Z88.1 Allergy status to other antibiotic agents; Z91.030 Bee allergy status; Z79.01 Long term (current) use of anticoagulants; Z79.890 Hormone replacement therapy; Z79.899 Other long term (current) drug therapy
CPT/HCPCS: 43235; 45385; 88305; J0360; J3010

== ENCOUNTER 2021-11-22 14:17 | Emergency (ER) | payer MEDICARE ==
[~2021-11-22] VITALS: Ht 175.3 cm; Wt 96.4 kg
[~2021-11-22 14:17] MED LIST changes: -NS 1,000 ML IV ONE
[2021-11-22] MEDS ORDERED: NS 1,000 ML IV ONE (19:00)
[2021-11-22 19:31] LABS: BASO % 0.6 % (0.0-1.0); EOS # 0.1 10^3/uL (0.0-0.5); EOS % 1.1 % (0.0-3.0); HEMATOCRIT 44.2 % (36.0-47.0); HEMOGLOBIN 14.1 g/dl (12.0-15.5); LYMPH % 28.6 % (24.0-44.0); MEAN CORPUSCULAR HGB CONC 31.9 g/dl (32.0-36.5); MEAN CORPUSCULAR VOLUME 90.8 fl (80.0-96.0); MONO # 0.6 10^3/uL (0.0-0.8); MONO % 8.7 % (2.0-8.0); NEUTROPHILS # 4.3 10^3/uL (1.5-8.5); NEUTROPHILS % 60.4 % (36.0-66.0); PLATELET COUNT, AUTOMATED 241 10^3/uL (150-450); RED BLOOD COUNT 4.87 10^6/uL (4.00-5.40); WHITE BLOOD COUNT 7.1 10^3/uL (4.0-10.0)
[2021-11-22] MEDS ORDERED: ISOVUE-370 76% 100ML VIAL As Ordered ONE (19:39)
[2021-11-22 20:05] LABS: ALBUMIN 3.9 GM/DL (3.2-5.2); ALT/SGPT 23 U/L (12-78); BILIRUBIN,DIRECT < 0.1 MG/DL (0.0-0.2); BILIRUBIN,TOTAL 0.4 MG/DL (0.2-1.0); LIPASE 111 U/L (73-393); TOTAL PROTEIN 7.9 GM/DL (6.4-8.2)
[2021-11-22 20:59] LABS: BLOOD UREA NITROGEN 14 MG/DL (7-18); CALCIUM LEVEL 9.7 MG/DL (8.8-10.2); CARBON DIOXIDE LEVEL 24 MEQ/L (21-32); CHLORIDE LEVEL 103 MEQ/L (98-107); CREATININE FOR GFR 1.41 MG/DL (0.55-1.30); GLOMERULAR FILTRATION RATE 39.8 (>45); GLUCOSE, FASTING 79 MG/DL (70-100); POTASSIUM SERUM 4.5 MEQ/L (3.5-5.1); SODIUM LEVEL 137 MEQ/L (136-145)
[2021-11-22 22:16] VITALS: BP 138/85
== END 2021-11-22 22:37 | disposition home or self-care (01) ==
LOC: M ED 14:17
DX: R51.9 Headache, unspecified (principal); R11.0 Nausea; R10.9 Unspecified abdominal pain; Z11.52 Encounter for screening for COVID-19; K76.89 Other specified diseases of liver; I10 Essential (primary) hypertension; N18.30 Chronic kidney disease, stage 3 unspecified; E03.9 Hypothyroidism, unspecified; E78.5 Hyperlipidemia, unspecified; Z87.442 Personal history of urinary calculi; Z87.01 Personal history of pneumonia (recurrent); K21.9 Gastro-esophageal reflux disease without esophagitis; Z86.718 Personal history of other venous thrombosis and embolism; F41.9 Anxiety disorder, unspecified; F32.9 Major depressive disorder, single episode, unspecified; Z85.828 Personal history of other malignant neoplasm of skin; Z79.01 Long term (current) use of anticoagulants; Z79.890 Hormone replacement therapy; Z79.899 Other long term (current) drug therapy; Z88.0 Allergy status to penicillin; Z88.1 Allergy status to other antibiotic agents; Z91.030 Bee allergy status
CPT/HCPCS: 74177; 80047; 80048; 80076; 83605; 83690; 85025; 87040; 87486; 87581; 87633; 87798; 96360; 96361; 99284; Q9967

== ENCOUNTER 2021-12-08 15:12 | Observation (INO) | payer MEDICARE ==
[~2021-12-08] VITALS: Ht 175.3 cm; Wt 101.9 kg
[~2021-12-08 15:12] MED LIST changes: +CARV6.25 PO; +HYDR-3363 PO; +LEVO112T2 PO; +OMEP40CA5 PO
[2021-12-08] MEDS ORDERED: ACETAMINOPHEN 500 MG TAB PO ONE (18:30)
[2021-12-08 18:42] LABS: BASO % 0.3 % (0.0-1.0); EOS # 0.1 10^3/uL (0.0-0.5); EOS % 1.5 % (0.0-3.0); HEMATOCRIT 38.7 % (36.0-47.0); HEMOGLOBIN 12.7 g/dl (12.0-15.5); LYMPH # 1.9 10^3/uL (1.5-5.0); LYMPH % 29.1 % (24.0-44.0); MEAN CORPUSCULAR HEMOGLOBIN 29.1 pg (27.0-33.0); MEAN CORPUSCULAR HGB CONC 32.8 g/dl (32.0-36.5); MEAN CORPUSCULAR VOLUME 88.8 fl (80.0-96.0); MONO # 0.7 10^3/uL (0.0-0.8); MONO % 11.3 % (2.0-8.0); NEUTROPHILS # 3.8 10^3/uL (1.5-8.5); NEUTROPHILS % 57.2 % (36.0-66.0); PLATELET COUNT, AUTOMATED 329 10^3/uL (150-450); RED BLOOD COUNT 4.36 10^6/uL (4.00-5.40); WHITE BLOOD COUNT 6.6 10^3/uL (4.0-10.0)
[2021-12-08 19:06] LABS: CALCIUM LEVEL 9.5 MG/DL (8.8-10.2); CREATININE FOR GFR 1.22 MG/DL (0.55-1.30); GLOMERULAR FILTRATION RATE 47.1 (>45); POTASSIUM SERUM 3.7 MEQ/L (3.5-5.1)
[2021-12-08 19:11] LABS: CPK CREATINE PHOSPHOKINASE 50 U/L (26-192)
[2021-12-08] MEDS ORDERED: NS 1,000 ML IV ONE (19:35)
[2021-12-08] MEDS ORDERED: ISOVUE-370 76% 100ML VIAL As Ordered ONE (23:01)
[2021-12-09 01:05] LABS: RSV AMPLIFICATION NEGATIVE (NEGATIVE)
[2021-12-09] MEDS ORDERED: ACETAMINOPHEN TAB 650MG DOSE (2X325MG) PO PRN (02:40)
[2021-12-09] MEDS ORDERED: MAALOX 30 ML SUSP *UDC PO PRN (02:40)
[2021-12-09] MEDS ORDERED: MOM 30ML SUSPENSION UDC PO PRN (02:40)
[2021-12-09] MEDS ORDERED: HOME MED LIST COMPLETE! XX SCH (03:00)
[2021-12-09 06:00] VITALS: BP 169/80
[2021-12-09] MEDS ORDERED: METOPROLOL TART 25 MG TABLET PO ONE (06:25)
[2021-12-09 08:41] VITALS: BP_SYST 147; BP_SYST 154; BP_DIAS 100; BP_DIAS 79; BP_DIAS 92
[2021-12-09 08:46] VITALS: BP 154/79
[2021-12-09] MEDS: lamoTRIgine 100MG TAB PO SCH (08:49)
[2021-12-09] MEDS: lisinopriL 5 MG TAB PO SCH (08:50)
[2021-12-09] MEDS: APIXABAN 5 MG TAB (ELIQUIS) PO SCH ×2 (08:50→20:42)
[2021-12-09] MEDS: OMEPRAZOLE 20MG CAP PO SCH (08:50)
[2021-12-09] MEDS: MULTIVITAMINS/MINERALS THERAP 1 TAB PO SCH (08:50)
[2021-12-09] MEDS: VENLAFAXINE **XR** 75MG CAPSULE PO SCH (08:50)
[2021-12-09] MEDS: LEVOTHYROXINE 112MCG TABLET (0.112MG) PO SCH (08:50)
[2021-12-09] MEDS: ATORVASTATIN 20 MG TAB PO SCH (08:50)
[2021-12-09] MEDS ORDERED: clonazePAM 1 MG TAB PO SCH (09:00)
[2021-12-09 09:26] LABS: HEMATOCRIT 36.3 % (36.0-47.0); MEAN CORPUSCULAR HEMOGLOBIN 29.2 pg (27.0-33.0); MEAN CORPUSCULAR HGB CONC 33.1 g/dl (32.0-36.5); MEAN CORPUSCULAR VOLUME 88.3 fl (80.0-96.0); PLATELET COUNT, AUTOMATED 330 10^3/uL (150-450); RED BLOOD COUNT 4.11 10^6/uL (4.00-5.40); WHITE BLOOD COUNT 5.6 10^3/uL (4.0-10.0)
[2021-12-09 10:04] LABS: ALBUMIN 3.3 GM/DL (3.2-5.2); BILIRUBIN,TOTAL 0.5 MG/DL (0.2-1.0); CALCIUM LEVEL 9.2 MG/DL (8.8-10.2); CREATININE FOR GFR 1.01 MG/DL (0.55-1.30); GLOMERULAR FILTRATION RATE 58.6 (>45); MAGNESIUM LEVEL 2.2 MG/DL (1.8-2.4); POTASSIUM SERUM 3.9 MEQ/L (3.5-5.1); TOTAL PROTEIN 6.7 GM/DL (6.4-8.2)
[2021-12-09 12:48] VITALS: BP 150/84
[2021-12-09 17:29] VITALS: BP 163/78
[2021-12-09 20:00] VITALS: BP 172/88
[2021-12-09] MEDS: TOPIRAMATE (TopAMAX) 25 MG TAB PO SCH (20:42)
[2021-12-09] MEDS: METOPROLOL TART 25 MG TABLET PO SCH (20:43)
[2021-12-09] MEDS ORDERED: QUEtiapine FUMARATE 200 MG TAB PO SCH (21:00)
[2021-12-10] VITALS: BP 115/62
[2021-12-10 04:00] VITALS: BP 134/79
[2021-12-10] MEDS: LEVOTHYROXINE 112MCG TABLET (0.112MG) PO SCH (05:02)
[2021-12-10 07:34] LABS: CALCIUM LEVEL 9.2 MG/DL (8.8-10.2); CREATININE FOR GFR 1.06 MG/DL (0.55-1.30); GLOMERULAR FILTRATION RATE 55.4 (>45); POTASSIUM SERUM 3.6 MEQ/L (3.5-5.1)
[2021-12-10 08:29] VITALS: BP 140/77
[2021-12-10] MEDS: VENLAFAXINE **XR** 75MG CAPSULE PO SCH (09:45)
[2021-12-10 09:46] VITALS: BP 140/77
[2021-12-10] MEDS: TOPIRAMATE (TopAMAX) 25 MG TAB PO SCH (09:46)
[2021-12-10] MEDS: ATORVASTATIN 20 MG TAB PO SCH (09:46)
[2021-12-10] MEDS: MULTIVITAMINS/MINERALS THERAP 1 TAB PO SCH (09:46)
[2021-12-10] MEDS: OMEPRAZOLE 20MG CAP PO SCH (09:46)
[2021-12-10] MEDS: lisinopriL 5 MG TAB PO SCH (09:46)
[2021-12-10] MEDS: METOPROLOL TART 25 MG TABLET PO SCH (09:46)
[2021-12-10] MEDS: APIXABAN 5 MG TAB (ELIQUIS) PO SCH (09:48)
[2021-12-10] MEDS: lamoTRIgine 100MG TAB PO SCH (09:50)
[2021-12-10] MEDS ORDERED: CLON1TAB8 PO (10:52)
[2021-12-10 12:12] VITALS: BP 150/80
[2021-12-14 10:09] LABS: VITAMIN B1 LEVEL WHOLE BLOOD 164.9 nmol/L (66.5-200.0)
== END 2021-12-10 14:02 | disposition home or self-care (01) ==
LOC: M ED 15:12 → M ED INP 15:13 → ENRESERV 12-09 04:47 → M PCU 12-09 06:00
PROVIDERS: ADMIT Internal Medicine; ATTEND Internal Medicine
DX: R29.6 Repeated falls (principal); Z79.899 Other long term (current) drug therapy; R53.1 Weakness; I95.1 Orthostatic hypotension; R42 Dizziness and giddiness; I48.91 Unspecified atrial fibrillation; Z86.718 Personal history of other venous thrombosis and embolism; Z86.711 Personal history of pulmonary embolism; U07.1 COVID-19; F31.9 Bipolar disorder, unspecified; I10 Essential (primary) hypertension; E03.9 Hypothyroidism, unspecified; K21.9 Gastro-esophageal reflux disease without esophagitis; G47.30 Sleep apnea, unspecified; Z79.01 Long term (current) use of anticoagulants; Z88.0 Allergy status to penicillin; Z91.030 Bee allergy status; Z88.1 Allergy status to other antibiotic agents; R09.89 Other specified symptoms and signs involving the circulatory and respiratory systems
CPT/HCPCS: 36415; 70450; 70544; 70551; 71275; 72125; 80048; 80053; 80175; 82525; 82550; 82607; 83735; 84425; 84484; 85025; 85027; 87428; 87631; 93005; 93880; 96374; 97161; 97165; 99285; G0378; Q9967

== ENCOUNTER → 2021-12-21 | Outpatient (REF) | payer MEDICARE ==
[2021-12-21 20:10] LABS: THYROID STIMULATING HORMONE 2.67 uIU/ML (0.358-3.740)
[2021-12-21 20:41] LABS: PTH INTACT 76.4 PG/ML (18.5-88.0)
== END ==
LOC: M LAB REF 16:48
PROVIDERS: ATTEND Pediatrics
DX: I48.0 Paroxysmal atrial fibrillation (principal); E03.9 Hypothyroidism, unspecified; E21.1 Secondary hyperparathyroidism, not elsewhere classified

== ENCOUNTER → 2022-02-25 | Outpatient (CLI) | payer MEDICARE ==
[2022-02-25 16:52] LABS: ALBUMIN 3.4 G/DL (3.2-5.2); BILIRUBIN,TOTAL 0.4 MG/DL (0.3-1.2); CALCIUM LEVEL 9.6 MG/DL (8.3-10.6); CREATININE FOR GFR 1.11 MG/DL (0.55-1.30); GLOMERULAR FILTRATION RATE 52.5 (>45); TOTAL PROTEIN 6.5 G/DL (5.7-8.2)
[2022-02-25 17:00] LABS: BASO % 0.7 % (0.0-1.0); EOS # 0.1 10^3/uL (0.0-0.5); EOS % 1.5 % (0.0-3.0); HEMATOCRIT 38.7 % (36.0-47.0); HEMOGLOBIN 12.3 g/dl (12.0-15.5); LYMPH # 1.7 10^3/uL (1.5-5.0); LYMPH % 29.2 % (24.0-44.0); MEAN CORPUSCULAR HEMOGLOBIN 28.4 pg (27.0-33.0); MEAN CORPUSCULAR HGB CONC 31.8 g/dl (32.0-36.5); MEAN CORPUSCULAR VOLUME 89.4 fl (80.0-96.0); MONO # 0.7 10^3/uL (0.0-0.8); MONO % 11.5 % (2.0-8.0); NEUTROPHILS # 3.4 10^3/uL (1.5-8.5); NEUTROPHILS % 56.8 % (36.0-66.0); PLATELET COUNT, AUTOMATED 283 10^3/uL (150-450); RED BLOOD COUNT 4.33 10^6/uL (4.00-5.40); WHITE BLOOD COUNT 5.9 10^3/uL (4.0-10.0)
[2022-02-25 17:24] LABS: DIGOXIN LEVEL 0.9 NG/ML (0.8-2.0)
== END ==
LOC: M WUC 13:16
PROVIDERS: ATTEND Pediatrics
DX: R19.7 Diarrhea, unspecified (principal); R10.9 Unspecified abdominal pain; R11.0 Nausea

== ENCOUNTER → 2022-03-03 | Outpatient (REF) | payer MEDICARE ==
[2022-03-04 14:33] LABS: CLOSTRIDIUM DIFFICILE PCR NEGATIVE (NEGATIVE)
== END ==
LOC: M LAB REF 11:55
PROVIDERS: ATTEND Pediatrics
DX: R19.7 Diarrhea, unspecified (principal)

== ENCOUNTER 2022-04-04 20:28 | Inpatient (IN) | payer MEDICARE ==
[~2022-04-04] VITALS: Ht 175.3 cm; Wt 95.4 kg
[2022-04-04 21:28] LABS: BASO % 0.4 % (0.0-1.0); EOS # 0.2 10^3/uL (0.0-0.5); EOS % 1.5 % (0.0-3.0); HEMOGLOBIN 12.2 g/dl (12.0-15.5); LYMPH % 10.4 % (24.0-44.0); MEAN CORPUSCULAR HGB CONC 32.1 g/dl (32.0-36.5); MEAN CORPUSCULAR VOLUME 87.4 fl (80.0-96.0); MONO # 0.7 10^3/uL (0.0-0.8); MONO % 6.9 % (2.0-8.0); NEUTROPHILS % 80.4 % (36.0-66.0); PLATELET COUNT, AUTOMATED 292 10^3/uL (150-450); RED BLOOD COUNT 4.35 10^6/uL (4.00-5.40)
[2022-04-04 21:52] LABS: CK-MB VALUE MASS < 1.0 NG/ML (<3.6); ETHYL ALCOHOL (ETHANOL) 0.005 % (0.000-0.010)
[2022-04-04 21:53] LABS: CPK CREATINE PHOSPHOKINASE 43 U/L (34-145); MB/CK RELATIVE INDEX 2.32 (< OR =4)
[2022-04-04 21:54] LABS: ALBUMIN 3.3 G/DL (3.2-5.2); ALKALINE PHOSPHATASE 119 U/L (46-116); ALT/SGPT < 9 U/L (7.0-40); AST/SGOT 16 U/L (<34); BILIRUBIN,DIRECT 0.1 MG/DL (<0.4); BILIRUBIN,TOTAL 0.3 MG/DL (0.3-1.2); BLOOD UREA NITROGEN 14 MG/DL (9-23); CALCIUM LEVEL 9.2 MG/DL (8.3-10.6); CARBON DIOXIDE LEVEL 29 MMOL/L (20-31); CHLORIDE LEVEL 102 MMOL/L (98-107); CREATININE FOR GFR 1.29 MG/DL (0.55-1.30); GLUCOSE, FASTING 121 MG/DL (74-106); POTASSIUM SERUM 3.6 MMOL/L (3.5-5.1); SODIUM LEVEL 138 MMOL/L (136-145); TOTAL PROTEIN 6.4 G/DL (5.7-8.2)
[2022-04-04 21:56] LABS: THYROID STIMULATING HORMONE 3.903 uIU/ML (0.55-4.78)
[2022-04-04] MEDS ORDERED: NS 500 ML IV ONE (23:20)
[2022-04-05] MEDS ORDERED: ACETAMINOPHEN TAB 650MG DOSE (2X325MG) PO PRN (00:15)
[2022-04-05 00:49] LABS: RSV AMPLIFICATION NEGATIVE (NEGATIVE)
[2022-04-05 01:39] LABS: INR 1.72; PROTHROMBIN TIME 20.5 SECONDS (12.5-14.5)
[2022-04-05 01:50] VITALS: BP 132/77
[2022-04-05] MEDS: LR 1,000 ML IV SCH ×3 (02:02→17:00)
[2022-04-05] MEDS ORDERED: flumazeniL 0.5MG/5ML VIAL IV STA (02:34)
[2022-04-05 06:00] VITALS: BP 133/74
[2022-04-05] MEDS: LEVOTHYROXINE 100MCG (0.1MG) 5ML SDV PF (SOLUTION FORM) IV SCH (06:26)
[2022-04-05] MEDS ORDERED: ENOXAPARIN 100MG/1ML SYRINGE (J1650 PER 10MG) SC SCH (09:00)
[2022-04-05] MEDS ORDERED: TRAZ-252 PO (11:04)
[2022-04-05] MEDS ORDERED: ADDE10TA PO (11:04)
[2022-04-05] MEDS ORDERED: BUPR1TAB52 PO (11:04)
[2022-04-05] MEDS ORDERED: CLON0.5T2 PO (11:04)
[2022-04-05] MEDS ORDERED: LISI2.5T9 PO (11:04)
[2022-04-05] MEDS ORDERED: HYDR-3363 PO (11:04)
[2022-04-05] MEDS ORDERED: VENL150C43 PO (11:04)
[2022-04-05] MEDS ORDERED: DIGO0.123 PO (11:04)
[2022-04-05] MEDS ORDERED: AMPH1TAB2 PO (11:04)
[2022-04-05] MEDS ORDERED: FAMO20TA5 PO (11:04)
[2022-04-05] MEDS ORDERED: PATIENT COMMENT (11:05)
[2022-04-05] MEDS ORDERED: HOME MED LIST COMPLETE! XX SCH (11:10)
[2022-04-05 12:00] VITALS: O2SAT 93
[2022-04-05 14:00] VITALS: BP 149/80
[2022-04-05 20:04] VITALS: BP 188/99
[2022-04-05 21:00] VITALS: BP 131/90
[2022-04-05] MEDS ORDERED: ADDERALL 5 MG TAB PO SCH ×2 (21:00)
[2022-04-05 21:33] LABS: BARBITURATES URINE NEGATIVE (NEGATIVE); BENZODIAZEPINES URINE NEGATIVE (NEGATIVE)
[2022-04-05 21:34] LABS: CANNABINOIDS URINE NEGATIVE (NEGATIVE); COCAINE METABOLITE URINE NEGATIVE (NEGATIVE); METHADONE URINE NEGATIVE (NEGATIVE); OPIATES URINE NEGATIVE (NEGATIVE); PHENCYCLIDINE URINE NEGATIVE (NEGATIVE)
[2022-04-05 21:35] LABS: AMPHETAMINES LEVEL URINE POSITIVE (NEGATIVE)
[2022-04-05] MEDS: FAMOTIDINE 20 MG TAB PO SCH (22:35)
[2022-04-05] MEDS: APIXABAN 5 MG TAB (ELIQUIS) PO SCH (22:35)
[2022-04-05] MEDS: CARVedilol 6.25 MG TAB PO SCH (22:36)
[2022-04-06] MEDS: LR 1,000 ML IV SCH ×2 (00:15→11:04)
[2022-04-06] MEDS: buPROPion (WELLBUTRIN SR) 100 MG SR TAB PO SCH ×3 (01:27→20:06)
[2022-04-06] MEDS ORDERED: LORazepam 2 MG/ML 1ML VIAL IV PRN (03:25)
[2022-04-06] MEDS ORDERED: NICOTINE 21MG/24HR 1 EA TRANSDERMAL TD PRN (03:40)
[2022-04-06 06:00] VITALS: BP 170/90
[2022-04-06] MEDS ORDERED: LEVOTHYROXINE 112MCG TABLET (0.112MG) PO SCH (06:00)
[2022-04-06 06:02] LABS: BASO % 0.4 % (0.0-1.0); EOS # 0.1 10^3/uL (0.0-0.5); EOS % 1.5 % (0.0-3.0); HEMATOCRIT 35.1 % (36.0-47.0); HEMOGLOBIN 11.4 g/dl (12.0-15.5); LYMPH # 1.5 10^3/uL (1.5-5.0); LYMPH % 20.9 % (24.0-44.0); MEAN CORPUSCULAR HEMOGLOBIN 28.3 pg (27.0-33.0); MEAN CORPUSCULAR HGB CONC 32.5 g/dl (32.0-36.5); MEAN CORPUSCULAR VOLUME 87.1 fl (80.0-96.0); MONO # 0.6 10^3/uL (0.0-0.8); MONO % 8.6 % (2.0-8.0); NEUTROPHILS % 68.1 % (36.0-66.0); PLATELET COUNT, AUTOMATED 268 10^3/uL (150-450); RED BLOOD COUNT 4.03 10^6/uL (4.00-5.40); WHITE BLOOD COUNT 7.3 10^3/uL (4.0-10.0)
[2022-04-06] MEDS: LEVOTHYROXINE 100MCG (0.1MG) 5ML SDV PF (SOLUTION FORM) IV SCH (06:19)
[2022-04-06 06:32] LABS: CALCIUM LEVEL 8.8 MG/DL (8.3-10.6); CREATININE FOR GFR 1.1 MG/DL (0.55-1.30); GLOMERULAR FILTRATION RATE 52.9 (>45); POTASSIUM SERUM 3.6 MMOL/L (3.5-5.1)
[2022-04-06] MEDS: ADDERALL 5 MG TAB PO SCH ×2 (09:21→16:01)
[2022-04-06] MEDS: ATORVASTATIN 20 MG TAB PO SCH (09:21)
[2022-04-06] MEDS: MULTIVITAMINS/MINERALS THERAP 1 TAB PO SCH (09:21)
[2022-04-06] MEDS: FAMOTIDINE 20 MG TAB PO SCH ×2 (09:21→20:07)
[2022-04-06] MEDS: APIXABAN 5 MG TAB (ELIQUIS) PO SCH ×2 (09:21→20:07)
[2022-04-06] MEDS: lamoTRIgine 100MG TAB PO SCH (09:23)
[2022-04-06] MEDS: CARVedilol 6.25 MG TAB PO SCH ×2 (09:24→20:06)
[2022-04-06] MEDS: LISINOPRIL *2.5 MG* TAB PO SCH (09:24)
[2022-04-06] MEDS: VENLAFAXINE **XR** 75MG CAPSULE PO SCH (09:25)
[2022-04-06] MEDS: DIGOXIN 0.125 MG TAB PO SCH (09:25)
[2022-04-06] MEDS ORDERED: OLANZapine INTRAMUSCULAR 10MG VIAL IM ONE (14:05)
[2022-04-06] MEDS ORDERED: TRAZ-252 PO (15:31)
[2022-04-06] MEDS ORDERED: CLON0.5T2 PO (15:31)
[2022-04-06] MEDS: NICOTINE 21MG/24HR 1 EA TRANSDERMAL TD SCH (16:44)
[2022-04-06 17:00] VITALS: BP 159/90
[2022-04-06] MEDS ORDERED: QUEtiapine FUMARATE 100 MG TAB PO SCH (19:00)
[2022-04-06 20:06] VITALS: BP 158/90
[2022-04-06 20:08] VITALS: BP 158/90
[2022-04-06] MEDS ORDERED: QUEtiapine FUMARATE 200 MG TAB PO SCH (21:00)
[2022-04-06] MEDS ORDERED: diphenhydrAMINE 50MG/ML VIAL IM PRN (21:50)
[2022-04-06] MEDS ORDERED: LORazepam 2 MG/ML 1ML VIAL IM PRN (21:55)
[2022-04-06] MEDS ORDERED: OLANZapine INTRAMUSCULAR 10MG VIAL IM PRN (22:40)
[2022-04-07 05:55] LABS: BASO % 0.4 % (0.0-1.0); EOS # 0.1 10^3/uL (0.0-0.5); EOS % 1.6 % (0.0-3.0); HEMATOCRIT 36.8 % (36.0-47.0); HEMOGLOBIN 11.9 g/dl (12.0-15.5); LYMPH % 25.4 % (24.0-44.0); MEAN CORPUSCULAR HEMOGLOBIN 27.8 pg (27.0-33.0); MEAN CORPUSCULAR HGB CONC 32.3 g/dl (32.0-36.5); MONO # 0.9 10^3/uL (0.0-0.8); MONO % 11.6 % (2.0-8.0); NEUTROPHILS # 4.8 10^3/uL (1.5-8.5); NEUTROPHILS % 60.7 % (36.0-66.0); PLATELET COUNT, AUTOMATED 272 10^3/uL (150-450); RED BLOOD COUNT 4.28 10^6/uL (4.00-5.40); WHITE BLOOD COUNT 7.9 10^3/uL (4.0-10.0)
[2022-04-07 06:00] VITALS: BP 153/89
[2022-04-07 06:22] LABS: CALCIUM LEVEL 9.1 MG/DL (8.3-10.6); CREATININE FOR GFR 1.12 MG/DL (0.55-1.30); GLOMERULAR FILTRATION RATE 51.8 (>45)
[2022-04-07] MEDS ORDERED: clonazePAM 0.5 MG TAB PO PRN (07:05)
[2022-04-07] MEDS: FAMOTIDINE 20 MG TAB PO SCH (08:25)
[2022-04-07] MEDS: MULTIVITAMINS/MINERALS THERAP 1 TAB PO SCH (08:25)
[2022-04-07] MEDS: APIXABAN 5 MG TAB (ELIQUIS) PO SCH (08:25)
[2022-04-07] MEDS: LISINOPRIL *2.5 MG* TAB PO SCH (08:26)
[2022-04-07] MEDS: ATORVASTATIN 20 MG TAB PO SCH (08:26)
[2022-04-07] MEDS: lamoTRIgine 100MG TAB PO SCH (08:26)
[2022-04-07] MEDS: buPROPion (WELLBUTRIN SR) 100 MG SR TAB PO SCH (08:27)
[2022-04-07] MEDS: DIGOXIN 0.125 MG TAB PO SCH (08:27)
[2022-04-07] MEDS: NICOTINE 21MG/24HR 1 EA TRANSDERMAL TD SCH (08:27)
[2022-04-07] MEDS: VENLAFAXINE **XR** 75MG CAPSULE PO SCH (08:27)
[2022-04-07] MEDS: CARVedilol 6.25 MG TAB PO SCH (08:27)
[2022-04-07] MEDS ORDERED: TRAZ150T90 PO (10:48)
[2022-04-07] MEDS ORDERED: QUEtiapine FUMARATE 200 MG TAB PO SCH (21:00)
== END 2022-04-07 12:05 | disposition home or self-care (01) | DRG 93 ==
LOC: M ED 20:28 → M ED INP 04-05 00:11 → ENRESERV 04-05 00:55 → M MSPAV 04-05 02:05
PROVIDERS: ADMIT Internal Medicine; ATTEND Internal Medicine Nephrology
DX: G92.8 Other toxic encephalopathy (principal); I12.9 Hypertensive chronic kidney disease with stage 1 through stage 4 chronic kidney disease, or unspecified chronic kidney disease; I95.1 Orthostatic hypotension; R41.82 Altered mental status, unspecified; E78.5 Hyperlipidemia, unspecified; E03.9 Hypothyroidism, unspecified; F31.9 Bipolar disorder, unspecified; N18.9 Chronic kidney disease, unspecified; R33.9 Retention of urine, unspecified; Z79.899 Other long term (current) drug therapy

== ENCOUNTER 2022-04-18 12:53 | Inpatient (IN) | payer MEDICARE ==
[~2022-04-18] VITALS: Ht 175.3 cm; Wt 93.6 kg
[~2022-04-18 12:53] MED LIST changes: +ADDE10TA PO; +AMPH1TAB2 PO; +BUPR1TAB52 PO; +CLON0.5T2 PO; +DIGO0.123 PO; +FAMO20TA5 PO; +LISI2.5T9 PO; +PATIENT COMMENT; +TRAZ150T90 PO; +VENL150C43 PO
[2022-04-18 14:27] LABS: BASO # 0.1 10^3/uL (0.0-0.2); BASO % 0.6 % (0.0-1.0); EOS # 0.1 10^3/uL (0.0-0.5); EOS % 0.9 % (0.0-3.0); HEMATOCRIT 39.1 % (36.0-47.0); HEMOGLOBIN 12.6 g/dl (12.0-15.5); LYMPH % 22.8 % (24.0-44.0); MEAN CORPUSCULAR HEMOGLOBIN 27.8 pg (27.0-33.0); MEAN CORPUSCULAR HGB CONC 32.2 g/dl (32.0-36.5); MEAN CORPUSCULAR VOLUME 86.1 fl (80.0-96.0); MONO # 0.7 10^3/uL (0.0-0.8); NEUTROPHILS % 67.4 % (36.0-66.0); PLATELET COUNT, AUTOMATED 279 10^3/uL (150-450); RED BLOOD COUNT 4.54 10^6/uL (4.00-5.40); WHITE BLOOD COUNT 8.9 10^3/uL (4.0-10.0)
[2022-04-18 14:53] LABS: CK-MB VALUE MASS < 1.0 NG/ML (<3.6)
[2022-04-18 14:55] LABS: CPK CREATINE PHOSPHOKINASE 55 U/L (34-145); MB/CK RELATIVE INDEX 1.81 (< OR =4)
[2022-04-18 14:56] LABS: ALBUMIN 3.4 G/DL (3.2-5.2); BILIRUBIN,DIRECT 0.2 MG/DL (<0.4); BILIRUBIN,TOTAL 0.5 MG/DL (0.3-1.2); CALCIUM LEVEL 9.5 MG/DL (8.3-10.6); CREATININE FOR GFR 0.99 MG/DL (0.55-1.30); DIGOXIN LEVEL 1.1 NG/ML (0.8-2.0); GLOMERULAR FILTRATION RATE 59.7 (>45); POTASSIUM SERUM 3.4 MMOL/L (3.5-5.1); TOTAL PROTEIN 6.6 G/DL (5.7-8.2)
[2022-04-18 14:58] LABS: FREE T4 1.61 NG/DL (0.89-1.76); THYROID STIMULATING HORMONE 4.572 uIU/ML (0.55-4.78)
[2022-04-18 15:07] LABS: RSV AMPLIFICATION NEGATIVE (NEGATIVE)
[2022-04-18] MEDS ORDERED: POTASSIUM CHLORIDE 10MEQ SR TABLET PO ONE (15:20)
[2022-04-18] MEDS ORDERED: ISOVUE-370 76% 100ML VIAL As Ordered ONE (15:31)
[2022-04-18] MEDS ORDERED: NS 0.45% 1,000 ML IV SCH (17:45)
[2022-04-18] MEDS ORDERED: TRAZ-252 PO (19:23)
[2022-04-18] MEDS ORDERED: ACID1TAB PO (19:23)
[2022-04-18] MEDS ORDERED: HOME MED LIST COMPLETE! XX SCH (19:25)
[2022-04-18 21:55] VITALS: BP 178/90
[2022-04-18] MEDS: APIXABAN 5 MG TAB (ELIQUIS) PO SCH (22:47)
[2022-04-18] MEDS: CARVedilol 6.25 MG TAB PO SCH (22:48)
[2022-04-18] MEDS: buPROPion (WELLBUTRIN SR) 100 MG SR TAB PO SCH (22:48)
[2022-04-18] MEDS: FAMOTIDINE 20 MG TAB PO SCH (22:48)
[2022-04-18] MEDS: ACETAMINOPHEN TAB 650MG DOSE (2X325MG) PO PRN (23:02)
[2022-04-18] MEDS: ONDANSETRON 4MG ORAL DISINTEGRATING TAB SL PRN (23:02)
[2022-04-19] VITALS (11 sets, daily range): BP systolic 168–192; BP diastolic 85–102
[2022-04-19 03:44] LABS: APPEARANCE, URINE CLEAR (CLEAR); BACTERIA, URINE AUTO NEGATIVE (NEGATIVE); BILIRUBIN, URINE AUTO NEGATIVE (NEGATIVE); BLOOD, URINE BLOOD 2+ (NEGATIVE); COLOR, URINE YELLOW (YELLOW); GLUCOSE, URINE (UA) AUTO NEGATIVE (NEGATIVE); KETONE, URINE AUTO TRACE mg/dL (NEGATIVE); LEUKOCYTE ESTERASE, URINE AUTO NEGATIVE (NEGATIVE); NITRITE, URINE AUTO NEGATIVE (NEGATIVE); PROTEIN, URINE AUTO 1+ mg/dL (NEGATIVE); RBC, URINE AUTO 7 /HPF (0-3); SPECIFIC GRAVITY URINE AUTO 1.035 (1.002-1.035); SQUAMOUS EPITHELIAL CELL UR AU 0 /HPF (0-6); UROBILINOGEN, URINE AUTO 0.2 mg/dL (0.0-2.0); WBC, URINE AUTO 2 /HPF (0-3)
[2022-04-19] MEDS: ONDANSETRON 4MG ORAL DISINTEGRATING TAB SL PRN ×2 (04:41→09:20)
[2022-04-19] MEDS: ACETAMINOPHEN TAB 650MG DOSE (2X325MG) PO PRN ×2 (04:41→09:21)
[2022-04-19] MEDS: hydrALAZINE 20MG/ML 1ML VIAL IV PRN ×3 (04:42→20:11)
[2022-04-19 05:24] LABS: HEMATOCRIT 41.4 % (36.0-47.0); HEMOGLOBIN 13.2 g/dl (12.0-15.5); MEAN CORPUSCULAR HEMOGLOBIN 27.8 pg (27.0-33.0); MEAN CORPUSCULAR HGB CONC 31.9 g/dl (32.0-36.5); MEAN CORPUSCULAR VOLUME 87.2 fl (80.0-96.0); PLATELET COUNT, AUTOMATED 279 10^3/uL (150-450); RED BLOOD COUNT 4.75 10^6/uL (4.00-5.40); WHITE BLOOD COUNT 9.6 10^3/uL (4.0-10.0)
[2022-04-19 05:48] LABS: CREATININE FOR GFR 0.99 MG/DL (0.55-1.30); GLOMERULAR FILTRATION RATE 59.7 (>45); MAGNESIUM LEVEL 1.9 MG/DL (1.8-2.4); PHOSPHORUS LEVEL 3.4 MG/DL (2.4-5.1); POTASSIUM SERUM 3.7 MMOL/L (3.5-5.1)
[2022-04-19] MEDS ORDERED: KETOROLAC 30 MG/ML 1ML VIAL IV ONE (06:00)
[2022-04-19] MEDS: LEVOTHYROXINE 112MCG TABLET (0.112MG) PO SCH (06:04)
[2022-04-19] MEDS ORDERED: amLODIPine 5 MG TAB PO SCH (09:00)
[2022-04-19] MEDS: DIGOXIN 0.125 MG TAB PO SCH (09:19)
[2022-04-19] MEDS: ATORVASTATIN 20 MG TAB PO SCH (09:19)
[2022-04-19] MEDS: VENLAFAXINE **XR** 75MG CAPSULE PO SCH (09:19)
[2022-04-19] MEDS: APIXABAN 5 MG TAB (ELIQUIS) PO SCH ×2 (09:19→21:45)
[2022-04-19] MEDS: FAMOTIDINE 20 MG TAB PO SCH ×2 (09:19→21:45)
[2022-04-19] MEDS: buPROPion (WELLBUTRIN SR) 100 MG SR TAB PO SCH ×2 (09:19→21:45)
[2022-04-19] MEDS: CARVedilol 6.25 MG TAB PO SCH ×2 (09:20→21:45)
[2022-04-19] MEDS: lamoTRIgine 100MG TAB PO SCH (09:20)
[2022-04-19] MEDS: CIPROFLOXACIN 500MG TABLET PO SCH ×2 (10:45→21:45)
[2022-04-19] MEDS: NS 0.45% 1,000 ML IV SCH ×2 (10:46→22:12)
[2022-04-19] MEDS ORDERED: CHLORTHALIDONE 25 MG TAB PO ONE (13:30)
[2022-04-19] MEDS: metroNIDAZOLE (FLAGYL) 500MG TABLET PO SCH ×2 (13:50→21:45)
[2022-04-19] MEDS ORDERED: OLANZapine 5 MG TAB PO ONE (17:15)
[2022-04-19] MEDS: traZODone 50 MG TAB PO SCH (21:44)
[2022-04-19] MEDS: ARIPiprazole 10 MG TAB PO SCH (21:45)
[2022-04-19] MEDS: OLANZapine 5 MG TAB PO PRN (22:12)
[2022-04-20] VITALS (9 sets, daily range): BP systolic 123–186; BP diastolic 64–96
[2022-04-20] MEDS: hydrALAZINE 20MG/ML 1ML VIAL IV PRN (02:36)
[2022-04-20] MEDS: LORazepam 2 MG/ML 1ML VIAL IV PRN (02:36)
[2022-04-20 04:50] LABS: HEMATOCRIT 42.2 % (36.0-47.0); HEMOGLOBIN 13.8 g/dl (12.0-15.5); MEAN CORPUSCULAR HEMOGLOBIN 27.5 pg (27.0-33.0); MEAN CORPUSCULAR HGB CONC 32.7 g/dl (32.0-36.5); MEAN CORPUSCULAR VOLUME 84.2 fl (80.0-96.0); PLATELET COUNT, AUTOMATED 305 10^3/uL (150-450); RED BLOOD COUNT 5.01 10^6/uL (4.00-5.40); WHITE BLOOD COUNT 12.8 10^3/uL (4.0-10.0)
[2022-04-20 05:34] LABS: BLOOD UREA NITROGEN 14 MG/DL (9-23); CALCIUM LEVEL 9.4 MG/DL (8.3-10.6); CARBON DIOXIDE LEVEL 23 MMOL/L (20-31); CHLORIDE LEVEL 94 MMOL/L (98-107); CREATININE FOR GFR 0.88 MG/DL (0.55-1.30); GLOMERULAR FILTRATION RATE > 60.0 (>45); GLUCOSE, FASTING 102 MG/DL (74-106); MAGNESIUM LEVEL 1.6 MG/DL (1.8-2.4); PHOSPHORUS LEVEL 2.7 MG/DL (2.4-5.1); POTASSIUM SERUM 3.3 MMOL/L (3.5-5.1); SODIUM LEVEL 130 MMOL/L (136-145)
[2022-04-20] MEDS: LEVOTHYROXINE 112MCG TABLET (0.112MG) PO SCH (06:14)
[2022-04-20] MEDS: metroNIDAZOLE (FLAGYL) 500MG TABLET PO SCH ×3 (06:14→21:25)
[2022-04-20] MEDS: ONDANSETRON 4MG ORAL DISINTEGRATING TAB SL PRN (06:16)
[2022-04-20] MEDS ORDERED: POTASSIUM CHLORIDE 10MEQ SR TABLET PO ONE (07:05)
[2022-04-20] MEDS: NS 0.45% 1,000 ML IV SCH (07:48)
[2022-04-20] MEDS: MAG SULF 1GM/100ML (MAG RUN) 1 GM in IV 1 EA IV SCH ×2 (09:34→10:47)
[2022-04-20] MEDS: VENLAFAXINE **XR** 75MG CAPSULE PO SCH (09:36)
[2022-04-20] MEDS: ATORVASTATIN 20 MG TAB PO SCH (09:36)
[2022-04-20] MEDS: buPROPion (WELLBUTRIN SR) 100 MG SR TAB PO SCH ×2 (09:36→21:25)
[2022-04-20] MEDS: CIPROFLOXACIN 500MG TABLET PO SCH ×2 (09:37→21:29)
[2022-04-20] MEDS: APIXABAN 5 MG TAB (ELIQUIS) PO SCH ×2 (09:37→21:26)
[2022-04-20] MEDS: lamoTRIgine 100MG TAB PO SCH (09:39)
[2022-04-20] MEDS: DIGOXIN 0.125 MG TAB PO SCH (09:39)
[2022-04-20] MEDS: CHLORTHALIDONE 25 MG TAB PO SCH (09:40)
[2022-04-20] MEDS: FAMOTIDINE 20 MG TAB PO SCH ×2 (09:40→21:25)
[2022-04-20] MEDS: CARVedilol 6.25 MG TAB PO SCH ×2 (09:42→21:00)
[2022-04-20] MEDS: ACETAMINOPHEN TAB 650MG DOSE (2X325MG) PO PRN (13:02)
[2022-04-20] MEDS ORDERED: LABETALOL 100MG/20ML VIAL IV PRN (14:20)
[2022-04-20] MEDS: **hydrALAZINE HCL** 25 MG TAB PO SCH ×2 (15:19→21:26)
[2022-04-20] MEDS: CYANOCOBALAMIN 500 MCG TAB PO SCH (16:10)
[2022-04-20] MEDS: ARIPiprazole 10 MG TAB PO SCH (21:25)
[2022-04-20] MEDS: traZODone 50 MG TAB PO SCH (21:25)
[2022-04-21] VITALS (8 sets, daily range): BP systolic 135–170; BP diastolic 77–118
[2022-04-21 04:56] LABS: HEMATOCRIT 39.6 % (36.0-47.0); MEAN CORPUSCULAR HEMOGLOBIN 27.7 pg (27.0-33.0); MEAN CORPUSCULAR HGB CONC 32.8 g/dl (32.0-36.5); MEAN CORPUSCULAR VOLUME 84.4 fl (80.0-96.0); PLATELET COUNT, AUTOMATED 266 10^3/uL (150-450); RED BLOOD COUNT 4.69 10^6/uL (4.00-5.40); WHITE BLOOD COUNT 7.4 10^3/uL (4.0-10.0)
[2022-04-21] MEDS: **hydrALAZINE HCL** 25 MG TAB PO SCH ×3 (05:34→21:07)
[2022-04-21] MEDS: LEVOTHYROXINE 112MCG TABLET (0.112MG) PO SCH (05:37)
[2022-04-21] MEDS: metroNIDAZOLE (FLAGYL) 500MG TABLET PO SCH ×3 (05:37→21:06)
[2022-04-21 05:55] LABS: CALCIUM LEVEL 9.5 MG/DL (8.3-10.6); CREATININE FOR GFR 1.13 MG/DL (0.55-1.30); GLOMERULAR FILTRATION RATE 51.3 (>45); MAGNESIUM LEVEL 2.1 MG/DL (1.8-2.4); PHOSPHORUS LEVEL 3.7 MG/DL (2.4-5.1); POTASSIUM SERUM 3.2 MMOL/L (3.5-5.1)
[2022-04-21] MEDS ORDERED: POTASSIUM CHLORIDE 10MEQ SR TABLET PO ONE (08:00)
[2022-04-21] MEDS: FAMOTIDINE 20 MG TAB PO SCH ×2 (09:40→21:07)
[2022-04-21] MEDS: ATORVASTATIN 20 MG TAB PO SCH (09:40)
[2022-04-21] MEDS: CIPROFLOXACIN 500MG TABLET PO SCH ×2 (09:40→21:07)
[2022-04-21] MEDS: APIXABAN 5 MG TAB (ELIQUIS) PO SCH ×2 (09:41→21:07)
[2022-04-21] MEDS: VENLAFAXINE **XR** 75MG CAPSULE PO SCH (09:41)
[2022-04-21] MEDS: DIGOXIN 0.125 MG TAB PO SCH (09:41)
[2022-04-21] MEDS: buPROPion (WELLBUTRIN SR) 100 MG SR TAB PO SCH ×2 (09:41→21:04)
[2022-04-21] MEDS: lamoTRIgine 100MG TAB PO SCH (09:42)
[2022-04-21] MEDS: CYANOCOBALAMIN 500 MCG TAB PO SCH (09:42)
[2022-04-21] MEDS: CARVedilol 6.25 MG TAB PO SCH ×2 (09:43→21:00)
[2022-04-21] MEDS: CHLORTHALIDONE 25 MG TAB PO SCH (09:43)
[2022-04-21] MEDS: LORazepam 2 MG/ML 1ML VIAL IV PRN (11:31)
[2022-04-21] MEDS ORDERED: LORazepam 2 MG/ML 1ML VIAL IV STA (11:33)
[2022-04-21 11:48] LABS: BASO % 0.5 % (0.0-1.0); EOS # 0.1 10^3/uL (0.0-0.5); EOS % 0.7 % (0.0-3.0); HEMATOCRIT 42.7 % (36.0-47.0); HEMOGLOBIN 14.2 g/dl (12.0-15.5); LYMPH # 1.2 10^3/uL (1.5-5.0); LYMPH % 14.9 % (24.0-44.0); MEAN CORPUSCULAR HGB CONC 33.3 g/dl (32.0-36.5); MEAN CORPUSCULAR VOLUME 84.2 fl (80.0-96.0); MONO % 11.6 % (2.0-8.0); NEUTROPHILS # 5.9 10^3/uL (1.5-8.5); NEUTROPHILS % 71.7 % (36.0-66.0); PLATELET COUNT, AUTOMATED 301 10^3/uL (150-450); RED BLOOD COUNT 5.07 10^6/uL (4.00-5.40); WHITE BLOOD COUNT 8.3 10^3/uL (4.0-10.0)
[2022-04-21 11:48] LABS: ABG BASE EXCESS 0.2 (-2.0-2.0); ABG HCO3 23.8 MEQ/L (22.0-26.0); ABG O2 SATURATION 97.1 % (95.0-99.0); ABG PARTIAL PRESSURE CO2 35.4 mmHg (35.0-45.0); ABG PARTIAL PRESSURE O2 94.5 mmHg (75.0-100.0); ABG STANDARD HCO3 24.7 MEQ/L (22.0-26.0); ABG TOTAL CO2 24.9 MEQ/L (23.0-31.0); ABG pH (ARTERIAL) 7.445 UNITS (7.350-7.450)
[2022-04-21 12:10] LABS: CALCIUM LEVEL 9.6 MG/DL (8.3-10.6); GLOMERULAR FILTRATION RATE 59.1 (>45); POTASSIUM SERUM 3.4 MMOL/L (3.5-5.1)
[2022-04-21] MEDS ORDERED: LABETALOL 100MG/20ML VIAL IV ONE (12:15)
[2022-04-21] MEDS ORDERED: PILL CUTTER 1 EACH XX PRN (16:20)
[2022-04-21] MEDS: ACETAMINOPHEN TAB 650MG DOSE (2X325MG) PO PRN (21:04)
[2022-04-21] MEDS: traZODone 50 MG TAB PO SCH (21:05)
[2022-04-21] MEDS: ARIPiprazole 10 MG TAB PO SCH (21:05)
[2022-04-22 00:29] VITALS: BP 114/71
[2022-04-22 04:25] VITALS: BP 127/78
[2022-04-22] MEDS: **hydrALAZINE HCL** 25 MG TAB PO SCH ×3 (05:11→21:25)
[2022-04-22] MEDS: metroNIDAZOLE (FLAGYL) 500MG TABLET PO SCH ×3 (05:13→21:23)
[2022-04-22] MEDS: LEVOTHYROXINE 112MCG TABLET (0.112MG) PO SCH (05:13)
[2022-04-22 07:55] VITALS: BP 132/72
[2022-04-22] MEDS: CHLORTHALIDONE 25 MG TAB PO SCH (09:00)
[2022-04-22] MEDS: ATORVASTATIN 20 MG TAB PO SCH (09:26)
[2022-04-22] MEDS: buPROPion (WELLBUTRIN SR) 100 MG SR TAB PO SCH ×2 (09:26→21:23)
[2022-04-22] MEDS: DIGOXIN 0.125 MG TAB PO SCH (09:26)
[2022-04-22] MEDS: CYANOCOBALAMIN 500 MCG TAB PO SCH (09:26)
[2022-04-22] MEDS: APIXABAN 5 MG TAB (ELIQUIS) PO SCH ×2 (09:27→21:23)
[2022-04-22] MEDS: lamoTRIgine 100MG TAB PO SCH (09:27)
[2022-04-22] MEDS: CARVedilol 6.25 MG TAB PO SCH ×2 (09:27→21:25)
[2022-04-22] MEDS: CIPROFLOXACIN 500MG TABLET PO SCH ×2 (09:27→21:24)
[2022-04-22] MEDS: VENLAFAXINE **XR** 75MG CAPSULE PO SCH (09:27)
[2022-04-22] MEDS: FAMOTIDINE 20 MG TAB PO SCH ×2 (09:28→21:23)
[2022-04-22] MEDS ORDERED: HYDR25TA PO (09:57)
[2022-04-22] MEDS ORDERED: TRAZ-252 PO (09:57)
[2022-04-22] MEDS ORDERED: ABIL10TA9 PO (09:57)
[2022-04-22] MEDS ORDERED: VITA500T40 PO (09:57)
[2022-04-22] MEDS ORDERED: LISI20TA33 PO (09:57)
[2022-04-22] MEDS ORDERED: CHLO25TA PO (09:57)
[2022-04-22] MEDS ORDERED: AMLO1TAB25 PO (09:57)
[2022-04-22 11:47] VITALS: BP 115/75
[2022-04-22 16:15] VITALS: BP 109/71
[2022-04-22 20:00] VITALS: BP 135/96
[2022-04-22] MEDS: traZODone 50 MG TAB PO SCH (21:24)
[2022-04-22] MEDS: ARIPiprazole 10 MG TAB PO SCH (21:24)
[2022-04-22] MEDS: OLANZapine 5 MG TAB PO PRN (21:26)
[2022-04-23] VITALS (31 sets, daily range): BP systolic 91–154; BP diastolic 61–93; O2SAT 83–96
[2022-04-23] MEDS: **hydrALAZINE HCL** 25 MG TAB PO SCH ×3 (06:00→20:55)
[2022-04-23] MEDS: metroNIDAZOLE (FLAGYL) 500MG TABLET PO SCH ×3 (06:00→20:54)
[2022-04-23] MEDS: LEVOTHYROXINE 112MCG TABLET (0.112MG) PO SCH (06:00)
[2022-04-23] MEDS ORDERED: LORazepam 2 MG/ML 1ML VIAL IM ONE (07:40)
[2022-04-23] MEDS: LORazepam 2 MG/ML 1ML VIAL IV PRN (07:48)
[2022-04-23] MEDS ORDERED: LORazepam 2 MG/ML 1ML VIAL IV STA (07:49)
[2022-04-23] MEDS: VENLAFAXINE **XR** 75MG CAPSULE PO SCH (09:45)
[2022-04-23] MEDS: DIGOXIN 0.125 MG TAB PO SCH (09:46)
[2022-04-23] MEDS: APIXABAN 5 MG TAB (ELIQUIS) PO SCH ×2 (09:46→20:56)
[2022-04-23] MEDS: lamoTRIgine 100MG TAB PO SCH (09:46)
[2022-04-23] MEDS: CIPROFLOXACIN 500MG TABLET PO SCH ×2 (09:46→20:54)
[2022-04-23] MEDS: CARVedilol 6.25 MG TAB PO SCH ×2 (09:46→20:56)
[2022-04-23] MEDS: buPROPion (WELLBUTRIN SR) 100 MG SR TAB PO SCH ×2 (09:47→20:56)
[2022-04-23] MEDS: ATORVASTATIN 20 MG TAB PO SCH (09:47)
[2022-04-23] MEDS: CYANOCOBALAMIN 500 MCG TAB PO SCH (09:47)
[2022-04-23] MEDS: CHLORTHALIDONE 25 MG TAB PO SCH (09:48)
[2022-04-23] MEDS: FAMOTIDINE 20 MG TAB PO SCH ×2 (09:48→20:54)
[2022-04-23] MEDS ORDERED: POTASSIUM CHLORIDE 10MEQ SR TABLET PO ONE ×2 (09:55→14:50)
[2022-04-23] MEDS ORDERED: KCL 10MEQ/100ML SWI (KRUN) 10 MEQ in IV 1 EA IV SCH (11:00)
[2022-04-23] MEDS ORDERED: levETIRAcetam INJection 1,000 MG in D5W 100 ML IV ONE (12:00)
[2022-04-23] MEDS: ONDANSETRON 4MG ORAL DISINTEGRATING TAB SL PRN (12:06)
[2022-04-23] MEDS: ACETAMINOPHEN TAB 650MG DOSE (2X325MG) PO PRN (12:06)
[2022-04-23 12:28] LABS: CALCIUM LEVEL 10.1 MG/DL (8.3-10.6); CREATININE FOR GFR 1.48 MG/DL (0.55-1.30); GLOMERULAR FILTRATION RATE 37.6 (>45); POTASSIUM SERUM 3.4 MMOL/L (3.5-5.1)
[2022-04-23] MEDS: LR 1,000 ML IV SCH (15:42)
[2022-04-23] MEDS ORDERED: LORazepam 2 MG/ML 1ML VIAL IV PRN (17:15)
[2022-04-23] MEDS: levETIRAcetam 250MG TABLET (KEPPRA) PO SCH (20:56)
[2022-04-23] MEDS: ARIPiprazole 10 MG TAB PO SCH (20:56)
[2022-04-23] MEDS: traZODone 50 MG TAB PO SCH (20:57)
[2022-04-24] VITALS (30 sets, daily range): BP systolic 111–152; BP diastolic 65–85; O2SAT 85–98
[2022-04-24] MEDS: LR 1,000 ML IV SCH (05:14)
[2022-04-24] MEDS: **hydrALAZINE HCL** 25 MG TAB PO SCH (06:00)
[2022-04-24] MEDS: metroNIDAZOLE (FLAGYL) 500MG TABLET PO SCH ×3 (06:16→20:27)
[2022-04-24] MEDS: LEVOTHYROXINE 112MCG TABLET (0.112MG) PO SCH (06:16)
[2022-04-24 06:41] LABS: CALCIUM LEVEL 9.2 MG/DL (8.3-10.6); CREATININE FOR GFR 1.36 MG/DL (0.55-1.30); GLOMERULAR FILTRATION RATE 41.4 (>45); MAGNESIUM LEVEL 1.7 MG/DL (1.8-2.4); POTASSIUM SERUM 3.7 MMOL/L (3.5-5.1)
[2022-04-24] MEDS: ACETAMINOPHEN TAB 650MG DOSE (2X325MG) PO PRN ×2 (07:48→13:16)
[2022-04-24] MEDS ORDERED: MAG SULF 1GM/100ML (MAG RUN) 1 GM in IV 1 EA IV ONE (09:00)
[2022-04-24] MEDS: CHLORTHALIDONE 25 MG TAB PO SCH (09:00)
[2022-04-24] MEDS: FAMOTIDINE 20 MG TAB PO SCH ×2 (09:27→20:27)
[2022-04-24] MEDS: APIXABAN 5 MG TAB (ELIQUIS) PO SCH ×2 (09:27→20:26)
[2022-04-24] MEDS: levETIRAcetam 250MG TABLET (KEPPRA) PO SCH ×2 (09:27→20:27)
[2022-04-24] MEDS: CIPROFLOXACIN 500MG TABLET PO SCH ×2 (09:28→20:26)
[2022-04-24] MEDS: CARVedilol 6.25 MG TAB PO SCH ×2 (09:28→20:32)
[2022-04-24] MEDS: lamoTRIgine 100MG TAB PO SCH (09:28)
[2022-04-24] MEDS: buPROPion (WELLBUTRIN SR) 100 MG SR TAB PO SCH ×2 (09:28→20:26)
[2022-04-24] MEDS: ATORVASTATIN 20 MG TAB PO SCH (09:29)
[2022-04-24] MEDS: DIGOXIN 0.125 MG TAB PO SCH (09:29)
[2022-04-24] MEDS: CYANOCOBALAMIN 500 MCG TAB PO SCH (09:30)
[2022-04-24] MEDS: VENLAFAXINE **XR** 75MG CAPSULE PO SCH (09:30)
[2022-04-24] MEDS: ARIPiprazole 10 MG TAB PO SCH (20:31)
[2022-04-24] MEDS: traZODone 50 MG TAB PO SCH (20:31)
[2022-04-25] VITALS (17 sets, daily range): BP systolic 104–155; BP diastolic 68–86; O2SAT 88–96
[2022-04-25] MEDS: LEVOTHYROXINE 112MCG TABLET (0.112MG) PO SCH (06:09)
[2022-04-25 06:50] LABS: HEMATOCRIT 40.1 % (36.0-47.0); HEMOGLOBIN 12.7 g/dl (12.0-15.5); MEAN CORPUSCULAR HEMOGLOBIN 27.3 pg (27.0-33.0); MEAN CORPUSCULAR HGB CONC 31.7 g/dl (32.0-36.5); MEAN CORPUSCULAR VOLUME 86.2 fl (80.0-96.0); PLATELET COUNT, AUTOMATED 269 10^3/uL (150-450); RED BLOOD COUNT 4.65 10^6/uL (4.00-5.40); WHITE BLOOD COUNT 8.1 10^3/uL (4.0-10.0)
[2022-04-25 07:23] LABS: CALCIUM LEVEL 9.2 MG/DL (8.3-10.6); CREATININE FOR GFR 1.14 MG/DL (0.55-1.30); GLOMERULAR FILTRATION RATE 50.8 (>45); MAGNESIUM LEVEL 1.7 MG/DL (1.8-2.4); PHOSPHORUS LEVEL 3.3 MG/DL (2.4-5.1); POTASSIUM SERUM 3.9 MMOL/L (3.5-5.1)
[2022-04-25] MEDS ORDERED: MAGNESIUM OXIDE 400MG TAB (MAG-OX) PO ONE (08:10)
[2022-04-25] MEDS: CARVedilol 6.25 MG TAB PO SCH (08:49)
[2022-04-25] MEDS: CYANOCOBALAMIN 500 MCG TAB PO SCH (08:49)
[2022-04-25] MEDS: ATORVASTATIN 20 MG TAB PO SCH (08:49)
[2022-04-25] MEDS: levETIRAcetam 250MG TABLET (KEPPRA) PO SCH (08:50)
[2022-04-25] MEDS: buPROPion (WELLBUTRIN SR) 100 MG SR TAB PO SCH (08:50)
[2022-04-25] MEDS: DIGOXIN 0.125 MG TAB PO SCH (08:50)
[2022-04-25] MEDS: CHLORTHALIDONE 25 MG TAB PO SCH (08:51)
[2022-04-25] MEDS: lamoTRIgine 100MG TAB PO SCH (08:51)
[2022-04-25] MEDS: VENLAFAXINE **XR** 75MG CAPSULE PO SCH (08:51)
[2022-04-25] MEDS: APIXABAN 5 MG TAB (ELIQUIS) PO SCH (08:51)
[2022-04-25] MEDS: FAMOTIDINE 20 MG TAB PO SCH (08:51)
[2022-04-25] MEDS: ACETAMINOPHEN TAB 650MG DOSE (2X325MG) PO PRN (15:52)
[2022-04-25] MEDS: ONDANSETRON 4MG ORAL DISINTEGRATING TAB SL PRN (15:52)
== END 2022-04-25 18:25 | DRG 92 ==
LOC: M ED 12:53 → EDBD 12:53 → M ED INP 17:12 → M PCU 21:53
PROVIDERS: ADMIT Internal Medicine; ATTEND Internal Medicine
DX: G92.8 Other toxic encephalopathy (principal); F31.2 Bipolar disorder, current episode manic severe with psychotic features; R45.851 Suicidal ideations; N18.9 Chronic kidney disease, unspecified; E03.9 Hypothyroidism, unspecified; K52.9 Noninfective gastroenteritis and colitis, unspecified; Z96.653 Presence of artificial knee joint, bilateral; R29.6 Repeated falls; M53.82 Other specified dorsopathies, cervical region; I16.0 Hypertensive urgency; E87.6 Hypokalemia; E83.42 Hypomagnesemia; F41.9 Anxiety disorder, unspecified; F90.9 Attention-deficit hyperactivity disorder, unspecified type; Z86.711 Personal history of pulmonary embolism; Z88.0 Allergy status to penicillin; Z91.030 Bee allergy status; Z88.8 Allergy status to other drugs, medicaments and biological substances; Z79.899 Other long term (current) drug therapy; E78.5 Hyperlipidemia, unspecified; I12.9 Hypertensive chronic kidney disease with stage 1 through stage 4 chronic kidney disease, or unspecified chronic kidney disease; I67.9 Cerebrovascular disease, unspecified

== ENCOUNTER 2022-04-22 10:03 | Inpatient (IN) | payer MEDICARE ==
[~2022-04-22] VITALS: Ht 175.3 cm; Wt 93.6 kg
[~2022-04-22 10:03] MED LIST changes: +ABIL10TA9 PO; +ACID1TAB PO; +AMLO1TAB25 PO; +CHLO25TA PO; +HYDR25TA PO; +LISI20TA33 PO; +VITA500T40 PO
[2022-04-25] MEDS ORDERED: MAALOX 30 ML SUSP *UDC PO PRN (16:05)
[2022-04-25] MEDS ORDERED: MOM 30ML SUSPENSION UDC PO PRN (16:05)
[2022-04-25] MEDS: LACTOBACILLUS ACIDOPHILUS CAP (BACID) PO SCH (18:00)
[2022-04-25 18:36] VITALS: BP 134/85
[2022-04-25] MEDS ORDERED: PILL CUTTER 1 EACH XX PRN (18:55)
[2022-04-25] MEDS: ARIPiprazole 10 MG TAB PO SCH (21:08)
[2022-04-25] MEDS: buPROPion (WELLBUTRIN SR) 100 MG SR TAB PO SCH (21:08)
[2022-04-25] MEDS: traZODone 50 MG TAB PO SCH (21:08)
[2022-04-25] MEDS: APIXABAN 5 MG TAB (ELIQUIS) PO SCH (21:09)
[2022-04-25] MEDS: CARVedilol 6.25 MG TAB PO SCH (21:09)
[2022-04-25] MEDS: FAMOTIDINE 20 MG TAB PO SCH (21:09)
[2022-04-25] MEDS: levETIRAcetam 250MG TABLET (KEPPRA) PO SCH (21:09)
[2022-04-26] MEDS: LEVOTHYROXINE 112MCG TABLET (0.112MG) PO SCH (06:13)
[2022-04-26 06:47] VITALS: BP 103/55
[2022-04-26] MEDS: OMEPRAZOLE 20MG CAP PO SCH (07:53)
[2022-04-26] MEDS: levETIRAcetam 250MG TABLET (KEPPRA) PO SCH ×2 (07:53→20:28)
[2022-04-26] MEDS: LACTOBACILLUS ACIDOPHILUS CAP (BACID) PO SCH ×2 (07:53→17:12)
[2022-04-26] MEDS: CYANOCOBALAMIN 500 MCG TAB PO SCH (07:53)
[2022-04-26] MEDS: lamoTRIgine 100MG TAB PO SCH (07:54)
[2022-04-26] MEDS: FAMOTIDINE 20 MG TAB PO SCH ×2 (07:54→20:29)
[2022-04-26] MEDS: VENLAFAXINE **XR** 75MG CAPSULE PO SCH (07:54)
[2022-04-26] MEDS: APIXABAN 5 MG TAB (ELIQUIS) PO SCH ×2 (07:54→20:35)
[2022-04-26] MEDS: buPROPion (WELLBUTRIN SR) 100 MG SR TAB PO SCH ×2 (07:54→20:35)
[2022-04-26] MEDS: CHLORTHALIDONE 25 MG TAB PO SCH (07:54)
[2022-04-26] MEDS: CARVedilol 6.25 MG TAB PO SCH ×2 (10:23→20:34)
[2022-04-26] MEDS: ATORVASTATIN 20 MG TAB PO SCH (10:23)
[2022-04-26] MEDS: DIGOXIN 0.125 MG TAB PO SCH (10:24)
[2022-04-26] MEDS ORDERED: ONDANSETRON 4MG TAB PO PRN (15:10)
[2022-04-26] MEDS ORDERED: IPRATROPIUM HFA INHALER 12.9 GRAMS (ATROVENT HFA) INH PRN (15:20)
[2022-04-26 16:18] VITALS: BP 108/58
[2022-04-26] MEDS: ARIPiprazole 10 MG TAB PO SCH (20:35)
[2022-04-26] MEDS: traZODone 50 MG TAB PO SCH (20:36)
[2022-04-27] MEDS: LEVOTHYROXINE 112MCG TABLET (0.112MG) PO SCH (06:21)
[2022-04-27 06:31] VITALS: BP 125/72
[2022-04-27] MEDS: DIGOXIN 0.125 MG TAB PO SCH (07:40)
[2022-04-27] MEDS: VENLAFAXINE **XR** 75MG CAPSULE PO SCH (07:40)
[2022-04-27] MEDS: lamoTRIgine 100MG TAB PO SCH (07:40)
[2022-04-27] MEDS: CHLORTHALIDONE 25 MG TAB PO SCH (07:40)
[2022-04-27] MEDS: ATORVASTATIN 20 MG TAB PO SCH (07:40)
[2022-04-27] MEDS: CARVedilol 6.25 MG TAB PO SCH (07:41)
[2022-04-27] MEDS: CYANOCOBALAMIN 500 MCG TAB PO SCH (07:41)
[2022-04-27] MEDS: levETIRAcetam 250MG TABLET (KEPPRA) PO SCH (07:41)
[2022-04-27] MEDS: APIXABAN 5 MG TAB (ELIQUIS) PO SCH (07:41)
[2022-04-27] MEDS: OMEPRAZOLE 20MG CAP PO SCH (07:41)
[2022-04-27] MEDS: buPROPion (WELLBUTRIN SR) 100 MG SR TAB PO SCH (07:41)
[2022-04-27 07:42] VITALS: BP 125/72
[2022-04-27 07:42] LABS: CHOLESTEROL RISK RATIO 3.28 (<5); HDL CHOLESTEROL 37.7 MG/DL (>40); LDL CHOLESTEROL 66.1 MG/DL (<100)
[2022-04-27] MEDS: LACTOBACILLUS ACIDOPHILUS CAP (BACID) PO SCH (07:42)
[2022-04-27] MEDS: FAMOTIDINE 20 MG TAB PO SCH (07:42)
[2022-04-27] MEDS ORDERED: VENL150C43 PO (10:20)
[2022-04-27] MEDS ORDERED: TRAZ-252 PO (10:20)
[2022-04-27] MEDS ORDERED: KEPP1TAB PO (10:20)
[2022-04-27] MEDS ORDERED: ARIP1TAB43 PO (10:20)
[2022-04-27] MEDS ORDERED: BUPR1TAB52 PO (10:20)
[2022-04-27] MEDS ORDERED: LAMO100T3 PO (10:20)
[2022-04-27] MEDS ORDERED: NICO14DI24 TOP (10:36)
== END 2022-04-27 11:27 | disposition home or self-care (01) | DRG 885 ==
LOC: M PSY 04-25 18:31
PROVIDERS: ADMIT Student in an Organized Health Care Education/Training Program; ATTEND Psychiatry & Neurology Psychiatry
DX: F31.60 Bipolar disorder, current episode mixed, unspecified (principal); F17.200 Nicotine dependence, unspecified, uncomplicated; F41.9 Anxiety disorder, unspecified; E03.9 Hypothyroidism, unspecified; I12.9 Hypertensive chronic kidney disease with stage 1 through stage 4 chronic kidney disease, or unspecified chronic kidney disease; M19.90 Unspecified osteoarthritis, unspecified site; N18.9 Chronic kidney disease, unspecified; Z86.711 Personal history of pulmonary embolism; Z86.718 Personal history of other venous thrombosis and embolism; G47.00 Insomnia, unspecified; Z88.0 Allergy status to penicillin; Z91.030 Bee allergy status; Z79.899 Other long term (current) drug therapy; R29.6 Repeated falls; E78.5 Hyperlipidemia, unspecified; K21.9 Gastro-esophageal reflux disease without esophagitis; R56.9 Unspecified convulsions; Z79.01 Long term (current) use of anticoagulants; J44.9 Chronic obstructive pulmonary disease, unspecified

== ENCOUNTER → 2022-05-02 | Outpatient (REF) | payer MEDICARE ==
[~2022-05-02] MED LIST changes: +ARIP1TAB43 PO; +KEPP1TAB PO; +NICO14DI24 TOP
[2022-05-02 18:39] LABS: CALCIUM LEVEL 10.1 MG/DL (8.3-10.6); CREATININE FOR GFR 1.43 MG/DL (0.55-1.30); DIGOXIN LEVEL 1.4 NG/ML (0.8-2.0); GLOMERULAR FILTRATION RATE 39.1 (>45); MAGNESIUM LEVEL 1.7 MG/DL (1.8-2.4); POTASSIUM SERUM 4.3 MMOL/L (3.5-5.1)
== END ==
LOC: M LAB REF 16:29
PROVIDERS: ATTEND Pediatrics
DX: E83.42 Hypomagnesemia (principal); I10 Essential (primary) hypertension; Z51.81 Encounter for therapeutic drug level monitoring

== ENCOUNTER 2022-05-12 22:20 | Inpatient (IN) | payer MEDICARE ==
[~2022-05-12] VITALS: Ht 175.3 cm; Wt 96.2 kg
[2022-05-12] MEDS ORDERED: LORazepam 2 MG/ML 1ML VIAL As Ordered ONE (22:33)
[2022-05-12] MEDS ORDERED: LORazepam 2 MG/ML 1ML VIAL IV STA ×2 (22:45→23:35)
[2022-05-12] MEDS ORDERED: levETIRAcetam INJection 1,500 MG in D5W 100 ML IV ONE (22:45)
[2022-05-12 23:15] LABS: BASO # 0.1 10^3/uL (0.0-0.2); BASO % 0.4 % (0.0-1.0); EOS # 0.2 10^3/uL (0.0-0.5); EOS % 1.5 % (0.0-3.0); HEMATOCRIT 44.2 % (36.0-47.0); HEMOGLOBIN 13.4 g/dl (12.0-15.5); LYMPH # 6.1 10^3/uL (1.5-5.0); LYMPH % 43.9 % (24.0-44.0); MEAN CORPUSCULAR HEMOGLOBIN 27.3 pg (27.0-33.0); MEAN CORPUSCULAR HGB CONC 30.3 g/dl (32.0-36.5); MEAN CORPUSCULAR VOLUME 90.2 fl (80.0-96.0); MONO # 1.2 10^3/uL (0.0-0.8); MONO % 8.4 % (2.0-8.0); NEUTROPHILS # 6.2 10^3/uL (1.5-8.5); NEUTROPHILS % 44.4 % (36.0-66.0); PLATELET COUNT, AUTOMATED 303 10^3/uL (150-450)
[2022-05-12 23:27] LABS: ETHYL ALCOHOL (ETHANOL) 0.003 % (0.000-0.010)
[2022-05-12] MEDS ORDERED: MIDAZOLAM 100MG/100ML-0.9%NACL 100 MG in IV 1 EA IV SCH (23:35)
[2022-05-12] MEDS ORDERED: ROCURONIUM BROMIDE 50MG/5ML VIAL IV SCH (23:35)
[2022-05-12] MEDS ORDERED: ETOMIDATE INJ 20MG/10ML VIAL IV STA (23:35)
[2022-05-12 23:52] LABS: ALBUMIN 3.7 G/DL (3.2-5.2); ALKALINE PHOSPHATASE 116 U/L (46-116); ALT/SGPT 25 U/L (7.0-40); AST/SGOT 24 U/L (<34); BILIRUBIN,DIRECT < 0.1 MG/DL (<0.4); BILIRUBIN,TOTAL 0.3 MG/DL (0.3-1.2); BLOOD UREA NITROGEN 29 MG/DL (9-23); CALCIUM LEVEL 10.2 MG/DL (8.3-10.6); CARBON DIOXIDE LEVEL 12 MMOL/L (20-31); CHLORIDE LEVEL 96 MMOL/L (98-107); CREATININE FOR GFR 1.48 MG/DL (0.55-1.30); GLOMERULAR FILTRATION RATE 37.6 (>45); GLUCOSE, FASTING 273 MG/DL (74-106); PHOSPHORUS LEVEL 6.3 MG/DL (2.4-5.1); POTASSIUM SERUM 3.6 MMOL/L (3.5-5.1); SODIUM LEVEL 139 MMOL/L (136-145)
[2022-05-12 23:54] LABS: APPEARANCE, URINE MANUAL HAZY (CLEAR); COLOR, URINE MANUAL YELLOW (YELLOW)
[2022-05-12 23:55] LABS: BILIRUBIN, URINE MANUAL NEGATIVE (NEGATIVE); BLOOD URINE MANUAL POSITIVE (NEGATIVE); GLUCOSE, URINE (UA) MANUAL NEGATIVE (NEGATIVE); KETONE, URINE MANUAL NEGATIVE (NEGATIVE); LEUKOCYTE ESTERASE, URINE MAN TRACE (NEGATIVE); NITRITE, URINE MANUAL NEGATIVE (NEGATIVE); PROTEIN, URINE MANUAL 3+ mg/dL (NEGATIVE); UROBILINOGEN, URINE MANUAL NORMAL (NORMAL)
[2022-05-13] VITALS (33 sets, daily range): BP systolic 84–128; BP diastolic 51–73
[2022-05-13 00:05] LABS: TOTAL PROTEIN 7.1 G/DL (5.7-8.2)
[2022-05-13 00:16] LABS: AMPHETAMINES LEVEL URINE NEGATIVE (NEGATIVE); BARBITURATES URINE NEGATIVE (NEGATIVE); BENZODIAZEPINES URINE NEGATIVE (NEGATIVE); CANNABINOIDS URINE NEGATIVE (NEGATIVE); COCAINE METABOLITE URINE NEGATIVE (NEGATIVE); METHADONE URINE NEGATIVE (NEGATIVE); OPIATES URINE NEGATIVE (NEGATIVE); PHENCYCLIDINE URINE NEGATIVE (NEGATIVE)
[2022-05-13 00:17] LABS: BACTERIA, URINE NONE SEEN; HYALINE CAST, URINE NONE SEEN /lpf (0-1); RSV AMPLIFICATION NEGATIVE (NEGATIVE); SQUAMOUS EPITHELIAL CELL URINE NONE SEEN /hpf (SMALL AMT); TRANSITIONAL EPI CELLS, URINE MOD AMOUNT /hpf
[2022-05-13 00:18] LABS: RENAL EPITHELIAL CELLS, URINE SMALL AMOUNT /hpf
[2022-05-13] MEDS ORDERED: MIDAZOLAM INJ 2MG/2ML VIAL IV STA (00:25)
[2022-05-13] MEDS ORDERED: NS 1,000 ML IV ONE ×2 (00:45)
[2022-05-13] MEDS ORDERED: PROPOFOL 1,000 MG/100 ML VIAL As Ordered ONE (00:49)
[2022-05-13] MEDS ORDERED: propofoL 1,000 MG in IV 1 EA IV SCH ×2 (00:50→10:09)
[2022-05-13] MEDS ORDERED: PHENYTOIN INJection 1,000 MG in NS 100 ML IV ONE (01:00)
[2022-05-13] MEDS ORDERED: GLUCOSE 4GM CHEW TABLET PO PRN (01:20)
[2022-05-13] MEDS ORDERED: NS 500 ML IV ONE (01:20)
[2022-05-13] MEDS ORDERED: DEXTROSE 50% 50ML SYRINGE IV PRN (01:20)
[2022-05-13] MEDS ORDERED: NS 1,000 ML IV SCH (01:20)
[2022-05-13] MEDS ORDERED: GLUCAGON INJ 1MG VIAL SC PRN (01:20)
[2022-05-13 02:08] LABS: ABG BASE EXCESS -4.9 (-2.0-2.0); ABG HCO3 19.8 MEQ/L (22.0-26.0); ABG PARTIAL PRESSURE CO2 35.7 mmHg (35.0-45.0); ABG PARTIAL PRESSURE O2 170.6 mmHg (75.0-100.0); ABG STANDARD HCO3 20.5 MEQ/L (22.0-26.0); ABG TOTAL CO2 20.9 MEQ/L (23.0-31.0); ABG pH (ARTERIAL) 7.361 UNITS (7.350-7.450)
[2022-05-13] MEDS: propofoL 1,000 MG in IV 1 EA IV SCH ×7 (03:00→19:55)
[2022-05-13] MEDS: MIDAZOLAM 100MG/100ML-0.9%NACL 100 MG in IV 1 EA IV SCH ×2 (03:00→16:58)
[2022-05-13] MEDS: INSULIN LISPRO (NovoLOG) PER UNIT SC SCH ×5 (03:22→23:43)
[2022-05-13 05:39] LABS: INR 1.08; PROTHROMBIN TIME 14.2 SECONDS (12.5-14.5)
[2022-05-13 05:52] LABS: ALBUMIN 3.2 G/DL (3.2-5.2); BILIRUBIN,TOTAL 0.4 MG/DL (0.3-1.2); CALCIUM LEVEL 8.8 MG/DL (8.3-10.6); CREATININE FOR GFR 1.27 MG/DL (0.55-1.30); GLOMERULAR FILTRATION RATE 44.8 (>45); MAGNESIUM LEVEL 1.9 MG/DL (1.8-2.4); PHOSPHORUS LEVEL 1.9 MG/DL (2.4-5.1); POTASSIUM SERUM 2.8 MMOL/L (3.5-5.1)
[2022-05-13] MEDS ORDERED: POTASSIUM PHOSPHATE INJ 15 MMOL in D5W 250 ML IV ONE (06:00)
[2022-05-13] MEDS: PANTOPRAZOLE 40MG VIAL IV SCH (09:44)
[2022-05-13] MEDS: ENOXAPARIN 100MG/1ML SYRINGE (J1650 PER 10MG) SC SCH ×2 (09:44→20:32)
[2022-05-13] MEDS: PHENYTOIN 100MG/2ML VIAL IV SCH ×2 (09:44→16:35)
[2022-05-13] MEDS: KCL 10MEQ/100ML SWI (KRUN) 10 MEQ in IV 1 EA IV SCH ×3 (09:49→11:59)
[2022-05-13] MEDS: CHLORHEXIDINE GLUCONATE 0.12 % 15ML UDC (PERIDEX ORAL RINSE) MT SCH ×2 (09:50→20:31)
[2022-05-13] MEDS ORDERED: MIDAZOLAM 100MG/100ML-0.9%NACL 100 MG in IV 1 EA IV SCH (10:09)
[2022-05-13] MEDS ORDERED: CHLO25TA PO (10:26)
[2022-05-13] MEDS ORDERED: KEPP1TAB PO (10:26)
[2022-05-13] MEDS ORDERED: ARIP1TAB43 PO (10:26)
[2022-05-13] MEDS ORDERED: VENL150C43 PO (10:26)
[2022-05-13] MEDS ORDERED: AMLO1TAB25 PO (10:26)
[2022-05-13] MEDS ORDERED: LAMO100T80 PO (10:26)
[2022-05-13] MEDS ORDERED: CYAN100049 PO (10:26)
[2022-05-13] MEDS ORDERED: TRAZ-252 PO (10:26)
[2022-05-13] MEDS ORDERED: LISI20TA33 PO (10:26)
[2022-05-13] MEDS ORDERED: HOME MED LIST COMPLETE! XX SCH (10:30)
[2022-05-13] MEDS: levETIRAcetam INJection 1,000 MG in D5W 100 ML IV SCH ×2 (10:56→22:48)
[2022-05-13] MEDS ORDERED: levETIRAcetam INJection 1,000 MG in D5W MINI-BAG PLUS 100 ML IV SCH (11:00)
[2022-05-13] MEDS ORDERED: LIDOCAINE 1% MDV 20ML VIAL As Ordered ONE (11:56)
[2022-05-13] MEDS ORDERED: SODIUM CHLORIDE 0.9% INJ 10 ML SYR IV PRN (15:25)
[2022-05-13] MEDS: NS 1,000 ML IV SCH (16:34)
[2022-05-13] MEDS: SODIUM CHLORIDE 0.9% INJ 10 ML SYR IV SCH (18:00)
[2022-05-13] MEDS ORDERED: fentaNYL CITRATE/NaCl 1,000 MCG in IV 1 EA IV SCH (21:25)
[2022-05-13] MEDS ORDERED: FENTANYL DRIP LOCK BOX KEY 1 EACH XX PRN (21:25)
[2022-05-13] MEDS: LORazepam 2 MG/ML 1ML VIAL IV PRN (23:06)
[2022-05-14] VITALS (47 sets, daily range): BP systolic 66–141; BP diastolic 42–71
[2022-05-14] MEDS: NS 1,000 ML IV SCH ×3 (00:49→19:39)
[2022-05-14] MEDS: PHENYTOIN 100MG/2ML VIAL IV SCH ×3 (00:49→17:31)
[2022-05-14] MEDS: LORazepam 2 MG/ML 1ML VIAL IV PRN ×8 (00:57→22:11)
[2022-05-14] MEDS ORDERED: dexmedeTOMidine 200 MCG in IV 1 EA IV SCH (02:45)
[2022-05-14] MEDS ORDERED: NS 1,000 ML IV ONE ×2 (05:15→05:30)
[2022-05-14] MEDS: INSULIN LISPRO (NovoLOG) PER UNIT SC SCH ×3 (06:00→17:31)
[2022-05-14] MEDS: SODIUM CHLORIDE 0.9% INJ 10 ML SYR IV SCH ×2 (06:00→06:33)
[2022-05-14 06:04] LABS: ABG BASE EXCESS -2.4 (-2.0-2.0); ABG HCO3 22.6 MEQ/L (22.0-26.0); ABG O2 SATURATION 97.4 % (95.0-99.0); ABG PARTIAL PRESSURE CO2 39.9 mmHg (35.0-45.0); ABG STANDARD HCO3 22.4 MEQ/L (22.0-26.0); ABG TOTAL CO2 23.8 MEQ/L (23.0-31.0); ABG pH (ARTERIAL) 7.371 UNITS (7.350-7.450)
[2022-05-14] MEDS: NOREPINEPHRINE 4MG IN D5 250ML 4 MG in IV 1 EA IV SCH ×10 (06:04→17:32)
[2022-05-14 06:14] LABS: HEMATOCRIT 30.1 % (36.0-47.0); MEAN CORPUSCULAR HEMOGLOBIN 28.8 pg (27.0-33.0); MEAN CORPUSCULAR HGB CONC 33.2 g/dl (32.0-36.5); MEAN CORPUSCULAR VOLUME 86.7 fl (80.0-96.0); PLATELET COUNT, AUTOMATED 175 10^3/uL (150-450); RED BLOOD COUNT 3.47 10^6/uL (4.00-5.40); WHITE BLOOD COUNT 9.3 10^3/uL (4.0-10.0)
[2022-05-14 06:23] LABS: HEMOGLOBIN A1c 5.4 % (4.0-6.0)
[2022-05-14 06:42] LABS: CALCIUM LEVEL 6.9 MG/DL (8.3-10.6); CREATININE FOR GFR 1.51 MG/DL (0.55-1.30); GLOMERULAR FILTRATION RATE 36.7 (>45); PHOSPHORUS LEVEL 3.6 MG/DL (2.4-5.1); POTASSIUM SERUM 3.2 MMOL/L (3.5-5.1)
[2022-05-14] MEDS: propofoL 1,000 MG in IV 1 EA IV SCH ×10 (07:00→11:50)
[2022-05-14] MEDS ORDERED: PROPOFOL 1,000 MG/100 ML VIAL As Ordered ONE (07:03)
[2022-05-14] MEDS ORDERED: KCL 10MEQ/100ML SWI (KRUN) 10 MEQ in IV 1 EA IV ONE (08:00)
[2022-05-14] MEDS ORDERED: POTASSIUM CHLORIDE 10% LIQ 20MEQ/15ML UDC PO ONE (08:00)
[2022-05-14] MEDS: PANTOPRAZOLE 40MG VIAL IV SCH (08:17)
[2022-05-14] MEDS: CHLORHEXIDINE GLUCONATE 0.12 % 15ML UDC (PERIDEX ORAL RINSE) MT SCH ×2 (08:19→20:20)
[2022-05-14] MEDS: ENOXAPARIN 100MG/1ML SYRINGE (J1650 PER 10MG) SC SCH ×2 (08:19→20:20)
[2022-05-14] MEDS: dexmedeTOMidine 200 MCG in IV 1 EA IV SCH ×8 (08:32→19:39)
[2022-05-14] MEDS ORDERED: ROCURONIUM BROMIDE 50MG/5ML VIAL ONE (09:48)
[2022-05-14] MEDS: levETIRAcetam INJection 1,000 MG in D5W 100 ML IV SCH ×2 (11:49→22:14)
[2022-05-14 13:03] LABS: BASO % 0.3 % (0.0-1.0); EOS % 0.4 % (0.0-3.0); HEMATOCRIT 30.1 % (36.0-47.0); HEMOGLOBIN 9.7 g/dl (12.0-15.5); LYMPH # 1.1 10^3/uL (1.5-5.0); LYMPH % 11.1 % (24.0-44.0); MEAN CORPUSCULAR HEMOGLOBIN 27.8 pg (27.0-33.0); MEAN CORPUSCULAR HGB CONC 32.2 g/dl (32.0-36.5); MEAN CORPUSCULAR VOLUME 86.2 fl (80.0-96.0); MONO # 0.9 10^3/uL (0.0-0.8); MONO % 9.9 % (2.0-8.0); NEUTROPHILS # 7.4 10^3/uL (1.5-8.5); PLATELET COUNT, AUTOMATED 181 10^3/uL (150-450); RED BLOOD COUNT 3.49 10^6/uL (4.00-5.40); WHITE BLOOD COUNT 9.5 10^3/uL (4.0-10.0)
[2022-05-14 13:33] LABS: CK-MB VALUE MASS 2.1 NG/ML (<3.6)
[2022-05-14 13:34] LABS: MB/CK RELATIVE INDEX 0.29 (< OR =4)
[2022-05-15] VITALS (42 sets, daily range): BP systolic 80–142; BP diastolic 47–85
[2022-05-15] MEDS: INSULIN LISPRO (NovoLOG) PER UNIT SC SCH ×4 (00:02→17:21)
[2022-05-15] MEDS: PHENYTOIN 100MG/2ML VIAL IV SCH ×3 (00:02→17:13)
[2022-05-15] MEDS: LORazepam 2 MG/ML 1ML VIAL IV PRN ×5 (00:03→22:36)
[2022-05-15] MEDS: dexmedeTOMidine 200 MCG in IV 1 EA IV SCH ×4 (00:10→20:10)
[2022-05-15] MEDS: propofoL 1,000 MG in IV 1 EA IV SCH ×3 (05:10→18:08)
[2022-05-15] MEDS: SODIUM CHLORIDE 0.9% INJ 10 ML SYR IV SCH ×2 (05:10→16:38)
[2022-05-15 05:34] LABS: ALBUMIN 2.4 G/DL (3.2-5.2); ALKALINE PHOSPHATASE 168 U/L (46-116); ALT/SGPT 86 U/L (7.0-40); AST/SGOT 83 U/L (<34); BILIRUBIN,TOTAL 0.5 MG/DL (0.3-1.2); BLOOD UREA NITROGEN 15 MG/DL (9-23); CALCIUM LEVEL 7.1 MG/DL (8.3-10.6); CARBON DIOXIDE LEVEL 28 MMOL/L (20-31); CHLORIDE LEVEL 107 MMOL/L (98-107); CREATININE FOR GFR 0.89 MG/DL (0.55-1.30); GLOMERULAR FILTRATION RATE > 60.0 (>45); GLUCOSE, FASTING 88 MG/DL (74-106); MAGNESIUM LEVEL 1.5 MG/DL (1.8-2.4); POTASSIUM SERUM 3.2 MMOL/L (3.5-5.1); SODIUM LEVEL 143 MMOL/L (136-145); TOTAL PROTEIN 5.1 G/DL (5.7-8.2)
[2022-05-15 06:06] LABS: ABG HCO3 24.4 MEQ/L (22.0-26.0); ABG O2 SATURATION 96.1 % (95.0-99.0); ABG PARTIAL PRESSURE CO2 34.1 mmHg (35.0-45.0); ABG STANDARD HCO3 25.4 MEQ/L (22.0-26.0); ABG TOTAL CO2 25.4 MEQ/L (23.0-31.0); ABG pH (ARTERIAL) 7.472 UNITS (7.350-7.450)
[2022-05-15] MEDS: NS 1,000 ML IV SCH ×2 (06:25→22:36)
[2022-05-15] MEDS ORDERED: MAG SULF 1GM/100ML (MAG RUN) 1 GM in IV 1 EA IV ONE (08:15)
[2022-05-15] MEDS: PANTOPRAZOLE 40MG VIAL IV SCH (08:25)
[2022-05-15] MEDS: CHLORHEXIDINE GLUCONATE 0.12 % 15ML UDC (PERIDEX ORAL RINSE) MT SCH ×2 (08:25→20:09)
[2022-05-15] MEDS: ENOXAPARIN 100MG/1ML SYRINGE (J1650 PER 10MG) SC SCH ×2 (08:26→20:09)
[2022-05-15] MEDS ORDERED: POTASSIUM CHLORIDE 10MEQ SR TABLET PO ONE (09:00)
[2022-05-15] MEDS ORDERED: KCL 10MEQ/100ML SWI (KRUN) 10 MEQ in IV 1 EA IV ONE (09:00)
[2022-05-15] MEDS ORDERED: POTASSIUM CHLORIDE 10% LIQ 20MEQ/15ML UDC PO ONE (09:00)
[2022-05-15] MEDS: levETIRAcetam INJection 1,000 MG in D5W 100 ML IV SCH ×2 (10:18→22:58)
[2022-05-15 13:15] LABS: HEMATOCRIT 28.1 % (36.0-47.0); HEMOGLOBIN 9.2 g/dl (12.0-15.5); MEAN CORPUSCULAR HEMOGLOBIN 27.7 pg (27.0-33.0); MEAN CORPUSCULAR HGB CONC 32.7 g/dl (32.0-36.5); MEAN CORPUSCULAR VOLUME 84.6 fl (80.0-96.0); PLATELET COUNT, AUTOMATED 180 10^3/uL (150-450); RED BLOOD COUNT 3.32 10^6/uL (4.00-5.40); WHITE BLOOD COUNT 9.9 10^3/uL (4.0-10.0)
[2022-05-15 13:51] LABS: BLOOD UREA NITROGEN 11 MG/DL (9-23); CARBON DIOXIDE LEVEL 29 MMOL/L (20-31); CHLORIDE LEVEL 106 MMOL/L (98-107); CREATININE FOR GFR 0.86 MG/DL (0.55-1.30); GLOMERULAR FILTRATION RATE > 60.0 (>45); GLUCOSE, FASTING 106 MG/DL (74-106); POTASSIUM SERUM 2.6 MMOL/L (3.5-5.1); SODIUM LEVEL 143 MMOL/L (136-145)
[2022-05-15] MEDS: KCL 20MEQ IN 100ML SWI (KRUN) 20 MEQ in IV 1 EA IV SCH ×8 (14:37→18:07)
[2022-05-15] MEDS: NOREPINEPHRINE 4MG IN D5 250ML 4 MG in IV 1 EA IV SCH ×4 (17:21→21:45)
[2022-05-15 21:16] LABS: BLOOD UREA NITROGEN 11 MG/DL (9-23); CALCIUM LEVEL 6.9 MG/DL (8.3-10.6); CARBON DIOXIDE LEVEL 29 MMOL/L (20-31); CHLORIDE LEVEL 107 MMOL/L (98-107); CREATININE FOR GFR 0.83 MG/DL (0.55-1.30); GLOMERULAR FILTRATION RATE > 60.0 (>45); GLUCOSE, FASTING 99 MG/DL (74-106); POTASSIUM SERUM 3.7 MMOL/L (3.5-5.1); SODIUM LEVEL 141 MMOL/L (136-145)
[2022-05-15 22:07] LABS: MAGNESIUM LEVEL 1.5 MG/DL (1.8-2.4)
[2022-05-15] MEDS: MAG SULF 1GM/100ML (MAG RUN) 1 GM in IV 1 EA IV SCH (22:36)
[2022-05-16] VITALS (73 sets, daily range): BP systolic 82–206; BP diastolic 50–134
[2022-05-16] MEDS: INSULIN LISPRO (NovoLOG) PER UNIT SC SCH ×5 (00:09→23:36)
[2022-05-16] MEDS: PHENYTOIN 100MG/2ML VIAL IV SCH ×3 (00:09→18:34)
[2022-05-16] MEDS: MAG SULF 1GM/100ML (MAG RUN) 1 GM in IV 1 EA IV SCH ×3 (00:09→18:34)
[2022-05-16] MEDS: propofoL 1,000 MG in IV 1 EA IV SCH ×2 (01:03→09:58)
[2022-05-16] MEDS: NS 1,000 ML IV SCH ×3 (02:50→20:36)
[2022-05-16] MEDS: dexmedeTOMidine 200 MCG in IV 1 EA IV SCH (03:34)
[2022-05-16] MEDS: NOREPINEPHRINE 4MG IN D5 250ML 4 MG in IV 1 EA IV SCH ×8 (04:25→20:39)
[2022-05-16] MEDS: LORazepam 2 MG/ML 1ML VIAL IV PRN (04:52)
[2022-05-16 05:08] LABS: BASO % 0.2 % (0.0-1.0); EOS # 0.1 10^3/uL (0.0-0.5); EOS % 0.8 % (0.0-3.0); HEMATOCRIT 29.6 % (36.0-47.0); HEMOGLOBIN 9.6 g/dl (12.0-15.5); LYMPH # 1.4 10^3/uL (1.5-5.0); LYMPH % 14.9 % (24.0-44.0); MEAN CORPUSCULAR HEMOGLOBIN 27.4 pg (27.0-33.0); MEAN CORPUSCULAR HGB CONC 32.4 g/dl (32.0-36.5); MEAN CORPUSCULAR VOLUME 84.6 fl (80.0-96.0); MONO # 0.8 10^3/uL (0.0-0.8); MONO % 8.5 % (2.0-8.0); NEUTROPHILS % 75.1 % (36.0-66.0); PLATELET COUNT, AUTOMATED 186 10^3/uL (150-450); WHITE BLOOD COUNT 9.3 10^3/uL (4.0-10.0)
[2022-05-16 05:32] LABS: ALBUMIN 2.3 G/DL (3.2-5.2); BILIRUBIN,DIRECT 0.2 MG/DL (<0.4); BILIRUBIN,TOTAL 0.5 MG/DL (0.3-1.2); TOTAL PROTEIN 5.1 G/DL (5.7-8.2)
[2022-05-16 05:46] LABS: ALBUMIN 2.3 G/DL (3.2-5.2); ALKALINE PHOSPHATASE 153 U/L (46-116); ALT/SGPT 59 U/L (7.0-40); AST/SGOT 46 U/L (<34); BILIRUBIN,TOTAL 0.4 MG/DL (0.3-1.2); BLOOD UREA NITROGEN 9 MG/DL (9-23); CALCIUM LEVEL 7.3 MG/DL (8.3-10.6); CARBON DIOXIDE LEVEL 27 MMOL/L (20-31); CHLORIDE LEVEL 104 MMOL/L (98-107); CREATININE FOR GFR 0.74 MG/DL (0.55-1.30); GLOMERULAR FILTRATION RATE > 60.0 (>45); GLUCOSE, FASTING 87 MG/DL (74-106); MAGNESIUM LEVEL 1.8 MG/DL (1.8-2.4); POTASSIUM SERUM 3.3 MMOL/L (3.5-5.1); SODIUM LEVEL 139 MMOL/L (136-145); TOTAL PROTEIN 5.1 G/DL (5.7-8.2)
[2022-05-16 05:52] LABS: ABG BASE EXCESS 3.4 (-2.0-2.0); ABG HCO3 26.4 MEQ/L (22.0-26.0); ABG O2 SATURATION 96.7 % (95.0-99.0); ABG PARTIAL PRESSURE CO2 33.9 mmHg (35.0-45.0); ABG STANDARD HCO3 27.5 MEQ/L (22.0-26.0); ABG TOTAL CO2 27.4 MEQ/L (23.0-31.0); ABG pH (ARTERIAL) 7.509 UNITS (7.350-7.450)
[2022-05-16] MEDS: SODIUM CHLORIDE 0.9% INJ 10 ML SYR IV SCH ×2 (06:00→17:39)
[2022-05-16] MEDS: KCL 20MEQ IN 100ML SWI (KRUN) 20 MEQ in IV 1 EA IV SCH ×4 (07:46→09:40)
[2022-05-16] MEDS: CHLORHEXIDINE GLUCONATE 0.12 % 15ML UDC (PERIDEX ORAL RINSE) MT SCH ×2 (09:39→20:17)
[2022-05-16] MEDS: PANTOPRAZOLE 40MG VIAL IV SCH (09:39)
[2022-05-16] MEDS: levETIRAcetam INJection 1,000 MG in D5W 100 ML IV SCH ×2 (10:40→23:06)
[2022-05-16] MEDS ORDERED: LevoFLOXacin IV 500 MG in IV 1 EA IV ONE (12:00)
[2022-05-16] MEDS ORDERED: RACEPINEPHrine 2.25% UD INHAL As Ordered ONE (13:29)
[2022-05-16] MEDS ORDERED: RACEPINEPHrine 2.25% UD INHAL INH ONE (13:30)
[2022-05-16] MEDS ORDERED: methylPREDNISolone 125MG 2ML VIAL IV STA ×2 (13:32→17:04)
[2022-05-16] MEDS ORDERED: methylPREDNISolone 125MG 2ML VIAL As Ordered ONE (13:34)
[2022-05-16] MEDS ORDERED: ETOMIDATE INJ 20MG/10ML VIAL IV STA (13:48)
[2022-05-16] MEDS ORDERED: ROCURONIUM BROMIDE 50MG/5ML VIAL IV ONE (13:49)
[2022-05-16] MEDS ORDERED: propofoL 200 MG/20 ML VIAL IV ONE (13:50)
[2022-05-16] MEDS ORDERED: EPINEPHrine 1MG/10ML SYRINGE 1.5IN IV STA (14:01)
[2022-05-16] MEDS ORDERED: EPINEPHrine 1MG/10ML SYRINGE 1.5IN IV SCH (14:01)
[2022-05-16] MEDS ORDERED: CALCIUM CHLORIDE 10% 1 GM/10 ML SYR IV STA (14:02)
[2022-05-16] MEDS ORDERED: methylPREDNISolone 125MG 2ML VIAL IV SCH (14:04)
[2022-05-16] MEDS ORDERED: SODIUM BICARBONATE 8.4% INJ 50ML SYRINGE IV STA (14:11)
[2022-05-16] MEDS ORDERED: C1 ESTERASE INHIBITOR (HUMAN) 2,000 UNIT in IV 1 EA IV ONE (14:35)
[2022-05-16 14:56] LABS: HEMATOCRIT 35.3 % (36.0-47.0); HEMOGLOBIN 11.3 g/dl (12.0-15.5); MEAN CORPUSCULAR HEMOGLOBIN 28.3 pg (27.0-33.0); MEAN CORPUSCULAR VOLUME 88.5 fl (80.0-96.0); PLATELET COUNT, AUTOMATED 199 10^3/uL (150-450); RED BLOOD COUNT 3.99 10^6/uL (4.00-5.40); WHITE BLOOD COUNT 16.4 10^3/uL (4.0-10.0)
[2022-05-16 15:25] LABS: ABG BASE EXCESS -6.2 (-2.0-2.0); ABG HCO3 18.7 MEQ/L (22.0-26.0); ABG O2 SATURATION 96.6 % (95.0-99.0); ABG PARTIAL PRESSURE CO2 35.1 mmHg (35.0-45.0); ABG PARTIAL PRESSURE O2 93.9 mmHg (75.0-100.0); ABG STANDARD HCO3 19.3 MEQ/L (22.0-26.0); ABG TOTAL CO2 19.8 MEQ/L (23.0-31.0); ABG pH (ARTERIAL) 7.344 UNITS (7.350-7.450)
[2022-05-16] MEDS ORDERED: KCL 20MEQ IN 100ML SWI (KRUN) 20 MEQ in IV 1 EA IV ONE ×4 (15:25→19:00)
[2022-05-16 15:26] LABS: ALBUMIN 2.2 G/DL (3.2-5.2); ALKALINE PHOSPHATASE 185 U/L (46-116); ALT/SGPT 60 U/L (7.0-40); AST/SGOT 46 U/L (<34); BILIRUBIN,TOTAL 0.5 MG/DL (0.3-1.2); BLOOD UREA NITROGEN 9 MG/DL (9-23); CALCIUM LEVEL 9.2 MG/DL (8.3-10.6); CARBON DIOXIDE LEVEL 21 MMOL/L (20-31); CHLORIDE LEVEL 103 MMOL/L (98-107); CREATININE FOR GFR 0.93 MG/DL (0.55-1.30); GLOMERULAR FILTRATION RATE > 60.0 (>45); GLUCOSE, FASTING 244 MG/DL (74-106); MAGNESIUM LEVEL 1.7 MG/DL (1.8-2.4); POTASSIUM SERUM 3.5 MMOL/L (3.5-5.1); SODIUM LEVEL 144 MMOL/L (136-145); TOTAL PROTEIN 5.5 G/DL (5.7-8.2)
[2022-05-16] MEDS ORDERED: VANCOMYCIN HCL 1 MG in IV FLUID PLACE HOLDER 1 EA IV SCH (15:40)
[2022-05-16] MEDS ORDERED: NS 1,000 ML IV ONE (15:55)
[2022-05-16] MEDS ORDERED: VANCOMYCIN HCL 1,000 MG, VIAL MATE ADAPTER 1 EACH in NS 250 ML IV ONE ×2 (17:00→18:00)
[2022-05-16] MEDS: ENOXAPARIN 100MG/1ML SYRINGE (J1650 PER 10MG) SC SCH (20:17)
[2022-05-16 21:07] LABS: LAMOTRIGINE (LAMICTAL) 2.1 ug/mL (2.0-20.0); LEVETIRACETAM (KEPPRA) 14.2 ug/mL (10.0-40.0)
[2022-05-16] MEDS: methylPREDNISolone 125MG 2ML VIAL IV SCH (21:29)
[2022-05-16] MEDS ORDERED: EPINEPHrine 1MG/10ML SYRINGE 1.5IN ONE (21:42)
[2022-05-17] VITALS (27 sets, daily range): BP systolic 83–126; BP diastolic 56–77
[2022-05-17] MEDS: PHENYTOIN 100MG/2ML VIAL IV SCH ×3 (01:00→17:05)
[2022-05-17] MEDS: NS 1,000 ML IV SCH ×4 (01:38→23:26)
[2022-05-17] MEDS ORDERED: ACETAMINOPHEN 1000MG 100ML IV BAG IV ONE ×3 (02:00→21:55)
[2022-05-17] MEDS: dexmedeTOMidine 200 MCG in IV 1 EA IV SCH (02:23)
[2022-05-17] MEDS: VANCOMYCIN HCL 1,000 MG, VIAL MATE ADAPTER 1 EACH in D5W 250 ML IV SCH ×2 (04:45→18:15)
[2022-05-17 05:00] LABS: BASO % 0.1 % (0.0-1.0); HEMATOCRIT 29.1 % (36.0-47.0); HEMOGLOBIN 9.4 g/dl (12.0-15.5); LYMPH # 1.1 10^3/uL (1.5-5.0); LYMPH % 9.1 % (24.0-44.0); MEAN CORPUSCULAR HEMOGLOBIN 27.5 pg (27.0-33.0); MEAN CORPUSCULAR HGB CONC 32.3 g/dl (32.0-36.5); MEAN CORPUSCULAR VOLUME 85.1 fl (80.0-96.0); MONO # 1.1 10^3/uL (0.0-0.8); MONO % 8.4 % (2.0-8.0); NEUTROPHILS # 10.1 10^3/uL (1.5-8.5); NEUTROPHILS % 81.6 % (36.0-66.0); PLATELET COUNT, AUTOMATED 212 10^3/uL (150-450); RED BLOOD COUNT 3.42 10^6/uL (4.00-5.40); WHITE BLOOD COUNT 12.4 10^3/uL (4.0-10.0)
[2022-05-17 05:23] LABS: ALBUMIN 2.1 G/DL (3.2-5.2); BILIRUBIN,TOTAL 0.7 MG/DL (0.3-1.2); CALCIUM LEVEL 7.2 MG/DL (8.3-10.6); CREATININE FOR GFR 1.1 MG/DL (0.55-1.30); GLOMERULAR FILTRATION RATE 52.9 (>45); MAGNESIUM LEVEL 1.7 MG/DL (1.8-2.4); POTASSIUM SERUM 3.4 MMOL/L (3.5-5.1); TOTAL PROTEIN 4.9 G/DL (5.7-8.2)
[2022-05-17 05:55] LABS: ABG HCO3 23.5 MEQ/L (22.0-26.0); ABG O2 SATURATION 99.3 % (95.0-99.0); ABG PARTIAL PRESSURE CO2 26.4 mmHg (35.0-45.0); ABG PARTIAL PRESSURE O2 350.4 mmHg (75.0-100.0); ABG STANDARD HCO3 26.3 MEQ/L (22.0-26.0); ABG TOTAL CO2 24.3 MEQ/L (23.0-31.0); ABG pH (ARTERIAL) 7.567 UNITS (7.350-7.450)
[2022-05-17] MEDS: methylPREDNISolone 125MG 2ML VIAL IV SCH ×3 (06:00→20:47)
[2022-05-17] MEDS: SODIUM CHLORIDE 0.9% INJ 10 ML SYR IV SCH ×2 (06:00→18:15)
[2022-05-17] MEDS: INSULIN LISPRO (NovoLOG) PER UNIT SC SCH ×3 (06:14→18:00)
[2022-05-17] MEDS: MAG SULF 1GM/100ML (MAG RUN) 1 GM in IV 1 EA IV SCH ×2 (06:34→07:51)
[2022-05-17] MEDS: ENOXAPARIN 100MG/1ML SYRINGE (J1650 PER 10MG) SC SCH ×2 (08:21→20:47)
[2022-05-17] MEDS: PANTOPRAZOLE 40MG VIAL IV SCH (08:21)
[2022-05-17] MEDS: CHLORHEXIDINE GLUCONATE 0.12 % 15ML UDC (PERIDEX ORAL RINSE) MT SCH ×2 (08:21→20:47)
[2022-05-17] MEDS ORDERED: NS 1,000 ML IV ONE (08:30)
[2022-05-17] MEDS ORDERED: KCL 10MEQ/100ML SWI (KRUN) 10 MEQ in IV 1 EA IV ONE ×2 (09:00→10:00)
[2022-05-17] MEDS ORDERED: LevoFLOXacin IV 500 MG in IV 1 EA IV SCH (09:00)
[2022-05-17] MEDS ORDERED: KCL 20MEQ IN 100ML SWI (KRUN) 20 MEQ in IV 1 EA IV ONE ×2 (09:30)
[2022-05-17] MEDS: levETIRAcetam INJection 1,000 MG in D5W 100 ML IV SCH ×2 (10:55→21:55)
[2022-05-17] MEDS ORDERED: LevoFLOXacin IV 750 MG in IV 1 EA IV SCH (12:00)
[2022-05-17] MEDS: LORazepam 2 MG/ML 1ML VIAL IV PRN (21:56)
[2022-05-17 22:39] LABS: AMORPHOUS SEDIMENT SMALL (NEGATIVE); APPEARANCE, URINE HAZY (CLEAR); BACTERIA, URINE AUTO NEGATIVE (NEGATIVE); BILIRUBIN, URINE AUTO NEGATIVE (NEGATIVE); BLOOD, URINE BLOOD 2+ (NEGATIVE); COLOR, URINE YELLOW (YELLOW); GLUCOSE, URINE (UA) AUTO NEGATIVE (NEGATIVE); KETONE, URINE AUTO NEGATIVE (NEGATIVE); LEUKOCYTE ESTERASE, URINE AUTO NEGATIVE (NEGATIVE); MUCUS, URINE SMALL (NEGATIVE); NITRITE, URINE AUTO NEGATIVE (NEGATIVE); PROTEIN, URINE AUTO NEGATIVE (NEGATIVE); RBC, URINE AUTO 30 /HPF (0-3); SPECIFIC GRAVITY URINE AUTO 1.016 (1.002-1.035); SQUAMOUS EPITHELIAL CELL UR AU 0 /HPF (0-6); UROBILINOGEN, URINE AUTO 0.2 mg/dL (0.0-2.0); WBC, URINE AUTO 2 /HPF (0-3)
[2022-05-18] VITALS (25 sets, daily range): BP systolic 73–147; BP diastolic 36–74
[2022-05-18] MEDS: AZTREONAM 1 GM in D5W MINI-BAG PLUS 50 ML IV SCH ×2 (00:08→09:00)
[2022-05-18] MEDS: PHENYTOIN 100MG/2ML VIAL IV SCH ×2 (00:09→09:01)
[2022-05-18] MEDS: LORazepam 2 MG/ML 1ML VIAL IV PRN ×4 (02:00→22:35)
[2022-05-18] MEDS ORDERED: KETOROLAC 30 MG/ML 1ML VIAL IV ONE (03:00)
[2022-05-18 05:11] LABS: BASO % 0.1 % (0.0-1.0); HEMATOCRIT 25.8 % (36.0-47.0); HEMOGLOBIN 8.8 g/dl (12.0-15.5); LYMPH # 1.1 10^3/uL (1.5-5.0); LYMPH % 9.5 % (24.0-44.0); MEAN CORPUSCULAR HEMOGLOBIN 28.6 pg (27.0-33.0); MEAN CORPUSCULAR HGB CONC 34.1 g/dl (32.0-36.5); MEAN CORPUSCULAR VOLUME 83.8 fl (80.0-96.0); MONO % 8.5 % (2.0-8.0); NEUTROPHILS # 9.5 10^3/uL (1.5-8.5); PLATELET COUNT, AUTOMATED 196 10^3/uL (150-450); RED BLOOD COUNT 3.08 10^6/uL (4.00-5.40); WHITE BLOOD COUNT 11.7 10^3/uL (4.0-10.0)
[2022-05-18 05:19] LABS: ABG BASE EXCESS -0.1 (-2.0-2.0); ABG HCO3 22.2 MEQ/L (22.0-26.0); ABG O2 SATURATION 98.5 % (95.0-99.0); ABG PARTIAL PRESSURE CO2 27.9 mmHg (35.0-45.0); ABG PARTIAL PRESSURE O2 151.2 mmHg (75.0-100.0); ABG STANDARD HCO3 24.4 MEQ/L (22.0-26.0); ABG pH (ARTERIAL) 7.518 UNITS (7.350-7.450)
[2022-05-18] MEDS: VANCOMYCIN HCL 1,000 MG, VIAL MATE ADAPTER 1 EACH in D5W 250 ML IV SCH (05:40)
[2022-05-18] MEDS: SODIUM CHLORIDE 0.9% INJ 10 ML SYR IV SCH ×2 (05:41→18:00)
[2022-05-18] MEDS: INSULIN LISPRO (NovoLOG) PER UNIT SC SCH ×3 (05:41→12:00)
[2022-05-18] MEDS: methylPREDNISolone 125MG 2ML VIAL IV SCH ×2 (05:41→14:49)
[2022-05-18] MEDS: NS 1,000 ML IV SCH (05:41)
[2022-05-18 05:45] LABS: ALBUMIN 1.9 G/DL (3.2-5.2); BILIRUBIN,TOTAL 0.4 MG/DL (0.3-1.2); CALCIUM LEVEL 7.5 MG/DL (8.3-10.6); CREATININE FOR GFR 1.04 MG/DL (0.55-1.30); FREE T4 0.75 NG/DL (0.89-1.76); GLOMERULAR FILTRATION RATE 56.4 (>45); MAGNESIUM LEVEL 1.6 MG/DL (1.8-2.4); POTASSIUM SERUM 2.8 MMOL/L (3.5-5.1); THYROID STIMULATING HORMONE 0.224 uIU/ML (0.55-4.78); TOTAL PROTEIN 4.7 G/DL (5.7-8.2)
[2022-05-18] MEDS ORDERED: MAG SULF 1GM/100ML (MAG RUN) 1 GM in IV 1 EA IV SCH (06:00)
[2022-05-18] MEDS ORDERED: MAGNESIUM SULFATE 1GM/100ML D5W BAG (10MG/ML) As Ordered ONE (06:13)
[2022-05-18] MEDS: MAG SULF 1GM/100ML (MAG RUN) 1 GM in IV 1 EA IV SCH ×2 (06:22→07:29)
[2022-05-18] MEDS ORDERED: KCL 20MEQ IN 100ML SWI (KRUN) 20 MEQ in IV 1 EA IV ONE ×6 (07:00→09:30)
[2022-05-18] MEDS: PANTOPRAZOLE 40MG VIAL IV SCH (09:01)
[2022-05-18] MEDS: ENOXAPARIN 100MG/1ML SYRINGE (J1650 PER 10MG) SC SCH (09:01)
[2022-05-18] MEDS: CHLORHEXIDINE GLUCONATE 0.12 % 15ML UDC (PERIDEX ORAL RINSE) MT SCH (09:02)
[2022-05-18] MEDS ORDERED: KCL 40MEQ IN D5/0.45NS 1000ML 1,000 ML IV SCH (09:05)
[2022-05-18] MEDS: LEVOTHYROXINE 100MCG (0.1MG) 5ML SDV PF (SOLUTION FORM) IV SCH ×2 (09:41→10:29)
[2022-05-18] MEDS: levETIRAcetam INJection 1,000 MG in D5W 100 ML IV SCH (10:47)
[2022-05-18] MEDS ORDERED: ACETAMINOPHEN 1000MG 100ML IV BAG IV ONE (14:05)
[2022-05-18] MEDS ORDERED: MORPHINE 2 MG/ML 1ML VIAL IV PRN ×4 (15:10)
[2022-05-18] MEDS ORDERED: SCOPOLAMINE 1MG TRANSDERMAL PATCH TOP PRN ×5 (15:10)
[2022-05-18] MEDS: MIDAZOLAM 100MG/100ML-0.9%NACL 100 MG in IV 1 EA IV SCH (15:38)
[2022-05-18] MEDS: MORPHINE 2 MG/ML 1ML VIAL IV PRN ×3 (15:39→22:19)
[2022-05-18 15:52] LABS: BLOOD UREA NITROGEN 21 MG/DL (9-23); CALCIUM LEVEL 7.7 MG/DL (8.3-10.6); CARBON DIOXIDE LEVEL 24 MMOL/L (20-31); CHLORIDE LEVEL 106 MMOL/L (98-107); CREATININE FOR GFR 0.88 MG/DL (0.55-1.30); GLOMERULAR FILTRATION RATE > 60.0 (>45); GLUCOSE, FASTING 101 MG/DL (74-106); POTASSIUM SERUM 3.6 MMOL/L (3.5-5.1); SODIUM LEVEL 139 MMOL/L (136-145)
[2022-05-19] MEDS: MORPHINE 2 MG/ML 1ML VIAL IV PRN ×3 (00:34→07:39)
[2022-05-19] MEDS: LORazepam 2 MG/ML 1ML VIAL IV PRN ×5 (01:00→09:21)
[2022-05-19] MEDS ORDERED: ACETAMINOPHEN 1000MG 100ML IV BAG IV ONE (03:00)
[2022-05-19] MEDS: SODIUM CHLORIDE 0.9% INJ 10 ML SYR IV SCH (06:22)
[2022-05-19] MEDS ORDERED: MORPHINE 2 MG/ML 1ML VIAL IV PRN (09:00)
== END 2022-05-19 10:07 | disposition expired | DRG 100 ==
LOC: M ED 22:20 → UNDOADMIN 05-13 01:17 → M ED INP 05-13 01:17 → ENRESERV 05-13 02:23 → M ICU 05-13 03:00 → M ED INP 05-13 03:52
PROVIDERS: ADMIT Internal Medicine Critical Care Medicine; ATTEND Internal Medicine
PROC: 5A1945Z Respiratory Ventilation, 24-96 Consecutive Hours (ICD-10-PCS; 2022-05-13)
PROC: 02HV33Z Insertion of Infusion Device into Superior Vena Cava, Percutaneous Approach (ICD-10-PCS; principal; 2022-05-13 12:00)
PROC: 0BH18EZ Insertion of Endotracheal Airway into Trachea, Via Natural or Artificial Opening Endoscopic (ICD-10-PCS; 2022-05-16)
PROC: B246ZZZ Ultrasonography of Right and Left Heart (ICD-10-PCS; 2022-05-17)
DX: G40.901 Epilepsy, unspecified, not intractable, with status epilepticus (principal); J96.01 Acute respiratory failure with hypoxia; J18.9 Pneumonia, unspecified organism; I62.00 Nontraumatic subdural hemorrhage, unspecified; E87.20 Acidosis, unspecified; I47.20 Ventricular tachycardia, unspecified; G93.40 Encephalopathy, unspecified; R73.9 Hyperglycemia, unspecified; F31.9 Bipolar disorder, unspecified; I12.9 Hypertensive chronic kidney disease with stage 1 through stage 4 chronic kidney disease, or unspecified chronic kidney disease; E87.6 Hypokalemia; N18.30 Chronic kidney disease, stage 3 unspecified; E03.9 Hypothyroidism, unspecified; D64.9 Anemia, unspecified; I48.0 Paroxysmal atrial fibrillation; F17.290 Nicotine dependence, other tobacco product, uncomplicated; E78.5 Hyperlipidemia, unspecified; K21.9 Gastro-esophageal reflux disease without esophagitis; F90.9 Attention-deficit hyperactivity disorder, unspecified type; Z20.822 Contact with and (suspected) exposure to COVID-19; Z79.01 Long term (current) use of anticoagulants; Z79.890 Hormone replacement therapy; Z79.899 Other long term (current) drug therapy; Z88.0 Allergy status to penicillin; Z88.1 Allergy status to other antibiotic agents; Z91.030 Bee allergy status; Z86.711 Personal history of pulmonary embolism; Z90.49 Acquired absence of other specified parts of digestive tract; I95.9 Hypotension, unspecified; E83.42 Hypomagnesemia; R74.01 Elevation of levels of liver transaminase levels; Z66 Do not resuscitate; Z92.21 Personal history of antineoplastic chemotherapy; Z85.048 Personal history of other malignant neoplasm of rectum, rectosigmoid junction, and anus; B95.1 Streptococcus, group B, as the cause of diseases classified elsewhere; I46.8 Cardiac arrest due to other underlying condition